=== PATIENT | female | born 1945 | race Caucasian/White ===

== ENCOUNTER 2020-08-16 14:56 | Emergency (ER) | payer MEDICARE, SELFPAY ==
--- NOTE | ~2020-08-16 | XR_ITS ---
EXAMINATION: XR ankle RT min 3V DATE: 08/16/2020 15:34 INDICATION: Lateral right ankle pain and swelling. TECHNIQUE: 4 views of right ankle were obtained. COMPARISON: Right ankle radiographs 04/01/2016 FINDINGS: There is a nondisplaced transverse fracture of distal fibula with medial aspect of the frac ture line 7 mm distal to the level of the tibial plafond. There is mild midfoot osteoarthritis. There are enthesophytes at the posterior and plantar aspects of calcaneal tuberosity. There is ankle soft tissue swelling, lateral worse than medial. IMPRESSION: 1. Transverse fracture of lateral malleolus. Reviewed, dictated and finalized at location A.
[2020-08-16 15:12] VITALS: BP 136/65; PULSE 81; RESP 20; TEMP 36.9; O2SAT 98
--- NOTE | 2020-08-16 15:24 | PC.NURSE ---
Pt to ED with complaints of right ankle pain and swelling. Pt twisted her ankle and fell to the ground. Denies head injury or LOC.
--- NOTE | 2020-08-16 15:28 | PC.NURSE ---
To xray via wheelchair.
--- NOTE | 2020-08-16 17:02 | PC.NURSE ---
Short leg posterior OCL applied by tech. Crutches provided. Crutch teaching provided to pt.
[2020-08-16 17:50] VITALS: BP 159/79; PULSE 78; RESP 18; O2SAT 96
--- NOTE | 2020-08-16 22:55 | ED.FALL ---
HPI - Fall General Chief Complaint: Fall <Hi Pelaez PA-C - Last Filed: 08/16/20 23:05> Stated Complaint: R ankle pain after fall <THANH Mendes Last Filed: 08/16/20 23:05> Time Seen by Provider: 08/16/20 15:23 <Hi Pelaez PA-C - Last Filed: 08/16/20 23:05> Source: patient <THANH Mendes Last Filed: 08/16/20 23:05> Mode of arrival: ambulatory <THANH Mendes Last Filed: 08/16/20 23:05> Limitations: no limitations <THANH Mendes Last Filed: 08/16/20 23:05> History of Present Illness HPI Narrative: Patient presents for evaluation of pain and swelling to the lateral aspect of her right ankle after tripping in a [employer] and inverting her right ankle. Patient reports that she has fractured the ankle 2 times in the past but normally wears a boot and follows up with her primary care. Patient states she has never had to have any surgical intervention on the ankle. Patient reports sensation and range of motion is intact but any range of motion of the ankle is uncomfortable. She denies any head impact, loss of consciousness or any other areas of pain. <THANH Mendes Last Filed: 08/16/20 23:05> Related Data Home Medications: Home Medications Medication Instructions Recorded Confirmed aspirin 325 mg tablet 325 mg PO DAILY 04/12/20 <Hi Pelaez PA-C - Last Filed: 08/16/20 23:05> Allergies/Adverse Reactions: Allergies Allergy/AdvReac Type Severity Reaction Status Date / Time No Known Allergies Allergy Mild NONE Verified 08/16/20 15:22 <Hi Pelaez PA-C - Last Filed: 08/16/20 23:05> Review of Systems Review of Systems: Narrative: CONSTITUTIONAL: Denies fever, chills, or sweats. EYES: Denies visual changes, redness, or discharge. ENT: Denies rhinorrhea, congestion, sore throat, or otalgia. CARDIOVASCULAR: Denies chest pain, palpitations, or edema. RESPIRATORY: Denies cough or dyspnea. GASTROINTESTINAL: Denies abdominal pain, nausea, vomiting, or diarrhea. GENITOURINARY: Denies dysuria or hematuria. SKIN: Denies rash or itching. MUSCULOSKELETAL: Reports right ankle pain denies back pain, myalgia NEUROLOGIC: Denies headache, numbness, dizziness, or weakness. PSYCHIATRIC: Denies anxiety or depression. <Hi Pelaez PA-C - Last Filed: 08/16/20 23:05> [facility] Past Medical History Medical History: Medical History (Updated 08/17/20 @ 00:01 by Background Daemon) Essential hypertension Mixed hyperlipidemia Peripheral vascular disease Tobacco abuse Vitamin D deficiency <Hi Pelaez PA-C - Last Filed: 08/16/20 23:05> Social History Social History: Social History Smoking status: Light tobacco smoker Second hand tobacco smoke exposure: No Alcohol intake: never <Hi Pelaez PA-C - Last Filed: 08/16/20 23:05> Exam Narrative: Exam Narrative: GENERAL: Well-appearing, well-nourished. HEAD: Normocephalic, atraumatic. No lacerations, hematomas or outward signs of injury. EYES: PERRLA and EOMI. ENT: Nares clear, no rhinorrhea or epistaxis. Mucous membranes moist. Oropharynx without tonsillar hypertrophy exudate or other lesions. Bilateral TMs pearly hennessy nonbulging. No hemotympanum NECK: Supple. No adenopathy or masses. No vertebral tenderness or loss of ROM. CHEST: Clear to auscultation. No respiratory distress. No wheezes rales or rhonchi HEART: Regular rate and rhythm. Normal peripheral pulses. EXTREMITIES: Swelling to the lateral malleolus of right ankle. No other areas distal or proximal with tenderness. Pain with plantar, dorsiflexion, Inversion. SKIN: Warm, dry, no rash. NEURO: No focal deficits. Alert and oriented x3. PSYCH: Normal mood and affect. <Hi Pelaez PA-C - Last Filed: 08/16/20 23:05> Course Vital Signs Vital signs: Vital Signs Temperature 36.9 C 08/16/20 15:12 Pulse Rate
== END 2020-08-16 17:52 | disposition home or self-care (01) ==
PROVIDERS: Emergency Provider Emergency Medicine; PCP Family Medicine
DX: S82.61XA Displaced fracture of lateral malleolus of right fibula, initial encounter for closed fracture (principal); I10 Essential (primary) hypertension; E78.2 Mixed hyperlipidemia; I73.9 Peripheral vascular disease, unspecified; E55.9 Vitamin D deficiency, unspecified; F17.200 Nicotine dependence, unspecified, uncomplicated; W18.40XA Slipping, tripping and stumbling without falling, unspecified, initial encounter; X50.9XXA Other and unspecified overexertion or strenuous movements or postures, initial encounter
CPT/HCPCS: 29515; 73610; 99284

== ENCOUNTER 2020-10-01 08:16 | Outpatient (CLI) | payer MEDICARE, SELFPAY ==
--- NOTE | ~2020-10-01 | XR_ITS ---
EXAMINATION: XR ankle RT min 3V DATE: 10/01/2020 08:41 INDICATION: Right ankle injury TECHNIQUE: Anteroposterior, oblique, mortise, and lateral views of the right ankle were obtained. COMPARISON: 08/16/2020 FINDINGS: There is subtle residual linear lucency along the previous noted transverse fracture of the lateral m alleolus which remains nondisplaced. There appears to be some increased sclerosis along the medial si de of the fracture plane consistent with change of interval healing. Persistent linear lucency projec ting across the lateral aspect of either the anterior process of the calcaneus or the cuboid on the A P projection suspicious for nondisplaced avulsion fracture. No significant overlying soft tissue swel ling to at the lateral ankle or midfoot to suggest recurrent injury. Alignment is essentially anatomi c with a congruent ankle mortise. Mild osteoarthritis at a few of the joints in the mid foot. [place] s and plantar calcaneal enthesophytes with small amount of enthesopathic ossification in the proximal plantar aponeurosis. Increased density anterior to the ankle joint line suggesting a small joint eff usion. IMPRESSION: 1. Healing nondisplaced transverse fracture at the lateral malleolus with still discernible lucency a t the fracture plane. 2. Suggestion of an additional unchanged nondisplaced likely avulsion fracture involving the lateral margin of the cuboid or anterior process of the calcaneus. 3. Small right ankle joint effusion. Reviewed, dictated and finalized at location A. ING IN MACHINE TENDER IMPRESSION: 1. Healing nondisplaced transverse fracture at the lateral malleolus with still discernible lucency at the fracture plane. 2. Suggestion of an additional unchanged nondisplaced likely avulsion fracture involving the lateral margin of the cuboid or anterior process of the calcaneus . 3. Small right ankle joint effusion.
== END 2020-10-01 08:17 | disposition home or self-care (01) ==
LOC: CHSIMG 08:18
PROVIDERS: PCP Family Medicine; Visit Provider Orthopaedic Surgery
DX: S99.911A Unspecified injury of right ankle, initial encounter (principal)
CPT/HCPCS: 73610

== ENCOUNTER 2020-10-29 08:16 | Outpatient (CLI) | payer MEDICARE, SELFPAY ==
[2020-10-29 08:30] LABS: Hematocrit 46.8 % (35.0-42.0); Hemoglobin 14.8 g/dL (11.7-13.8); Mean Corpuscular HGB Conc 31.6 g/dL (32.0-36.0); Mean Corpuscular Hemoglobin 29.6 pg (27.0-31.0); Mean Corpuscular Volume 93.6 fL (78.0-102.0); Platelet Count Result 293 K/mm3 (150-420); Red Cell Distribution Width 13.5 % (11.6-14.4); White Blood Count 6.2 K/mm3 (4.8-10.8)
[2020-10-29 09:32] LABS: Erythrocyte Sedimentation Rate 5 mm/hr (0-20)
[2020-10-29 09:40] LABS: Alanine Aminotransferase 12 U/L (14-59); Alkaline Phosphatase 65 U/L (46-116); Anion Gap 10 mmol/L (8-16); Aspartate Amino Transferase 14 U/L (15-37); Bilirubin,Total 0.6 mg/dL (0.00-1.00); Blood Urea Nitrogen 8 mg/dL (7-18); Calcium 9.4 mg/dL (8.5-10.1); Carbon Dioxide 29 mmol/L (21-32); Chloride 100 mmol/L (98-108); Estimated Glomerular Filt Rate 46; Glucose 92 mg/dL (70-99); Iron 76 ug/dL (50-170); Osmolality Calculated 286 mOsm/kg (285-295); Percent Iron Saturation 28 % (12-57); Potassium 3.8 mmol/L (3.5-5.1); Sodium 139 mmol/L (136-145); Total Protein 6.9 g/dL (6.4-8.2)
[2020-10-29 09:49] LABS: Thyroid Stimulating Hormone Reflex 1.11 u/IU/mL (0.36-3.74)
[2020-10-29 13:52] LABS: Appearance Urine Clear (Clear); Bilirubin Urine Negative (Negative); Color Urine Yellow (Yellow); Glucose Urine UA Negative (Negative); Ketones Urine Negative (Negative); Leukocyte Esterase Ur Negative LEU/UL (Negative); Nitrate Urine Negative (Negative); Protein Urine Negative (Negative); Specific Grav Ur 1.015 (1.010-1.020); Urobilinogen Urine 0.2 mg/dL (0.2-1.0); pH Urine 5.5 (5.0-8.0)
[2020-10-29 13:57] LABS: Add Urine Microscopic? YES; Bacteria Urine 1+ /hpf; Blood Urine Trace-Intact (Negative); RBC Urine 0-2 /hpf (0-2); Squamous Epithelial Cell Urine Moderate /hpf (Few); WBC Urine 0-3 /hpf (0-3)
[2020-11-02 15:11] LABS: Gliadin AB, IgG 4 Units (<20); Reticulin IgA Negative (Negative); TTG IGA AB 1 U/mL (<4)
== END 2020-10-29 08:17 | disposition home or self-care (01) ==
LOC: CHSLAB 08:19
PROVIDERS: PCP Family Medicine; Visit Provider Family Medicine
DX: R19.7 Diarrhea, unspecified (principal); R63.4 Abnormal weight loss; R53.83 Other fatigue; M79.641 Pain in right hand
CPT/HCPCS: 36415; 80053; 81001; 83516; 83540; 83550; 84443; 85027; 85652; 86255

== ENCOUNTER 2021-03-05 19:58 | Emergency (ER) | payer MEDICARE, SELFPAY ==
--- NOTE | ~2021-03-05 | CT_ITS ---
EXAMINATION: CT brain wo con DATE: 03/05/2021 20:52 INDICATION: Diffuse headache, dizziness, lightheadedness. Nausea. TECHNIQUE: Computed tomography (CT) of the head was performed without intravenous contrast. The mA wa s adjusted according to patient size. Iterative reconstruction technique was employed. Exam dose: 52 9.67 mGy-cm total exam DLP. COMPARISON: None FINDINGS: Bilateral carotid siphon and supraclinoid internal carotid artery calcifications. There is nonspecific prominent patchy diminished attenuation of the subcortical and periventricular c erebral white matter, likely due to chronic small vessel ischemic changes. No intracranial mass lesion or hemorrhage or cerebrovascular accident is evident. No midline shift or mass effect effect. No subdural or epidural hematoma. Included paranasal sinuses and mastoid air cells are normally developed and aerated. No fracture or bone destruction of the cranial vault. IMPRESSION: Cerebral atherosclerosis and chronic small vessel ischemic changes of the cerebral white matter Reviewed, dictated and finalized at Location A. Reviewed, dictated and finalized at location A.
[2021-03-05 20:10] VITALS: BP 170/111; PULSE 98; RESP 20; TEMP 36.5; O2SAT 96
[2021-03-05 20:28] VITALS: BP 175/91; PULSE 81; RESP 18; O2SAT 95
[2021-03-05] MEDS: ONDANSETRON HCL ODT 4 MG TABLET PO (20:43)
--- NOTE | 2021-03-05 20:45 | ED.HA ---
HPI - Headache General Source: patient and family Mode of arrival: ambulatory Limitations: no limitations History of Present Illness HPI Narrative: the patient comes into the emergency room tonight after being lightheaded most of the day today. She states she woke up with a headache and felt lightheaded. This is continued most of the day. She also has had a rather bad headache. She has not had any focal weakness. She has not had any shortness of breath or had any palpitations. She continues to smoke about a pack a day. She has had some mild nausea with this as well. Measures taken at home have not made her feel better. she is most disturbed by the lightheadedness which is ongoing off and on since this morning. She denies any vertigo. MD elicited complaint: headache Onset description: suddenly (after waking this am) Related Data Home Medications Medication Instructions Recorded Confirmed omega-3 fatty acids 1,000 mg 1,000 mg PO DAILY 08/20/20 03/05/21 capsule aspirin [EC Aspirin] 325 mg PO DAILY 03/05/21 03/05/21 cyanocobalamin (vitamin B-12) See Rx Instructions .ROUTE .COMPLEX 03/05/21 03/05/21 Allergies Allergy/AdvReac Type Severity Reaction Status Date / Time No Known Allergies Allergy Mild NONE Verified 03/04/21 08:55 Review of Systems Constitutional: Constitutional: Reports no additional constitutional complaints Eyes: Eyes: Reports no additional eye complaints Comments: no vertigo ENT: Reports system reviewed and no additional complaints, except as documented Cardiovascular: Cardiovascular: Reports as per HPI and Reports no additional cardiovascular complaints Respiratory: Respiratory: Reports no additional respiratory complaints Gastrointestinal: Gastrointestinal: Reports no additional gastrointestinal complaints and Reports nausea Genitourinary: Genitourinary: Reports no additional female genitourinary complaints Musculoskeletal: Musculoskeletal: Reports no additional musculoskeletal complaints Integumentary/Breasts: Skin/Breast: Reports system reviewed and no additional complaints, except as docu Neurologic: Reports system reviewed and no additional complaints, except as documented Psychiatric: Psychiatric: Reports no additional psychiatric complaints Endocrine: Endocrine: Reports no additional endocrine complaints Hematologic/Lymphatic: Hematologic/Lymphatic: Reports no additional hematologic/lymphatic complaints Allergic/Immunologic: Allergic/Immunologic: Reports no additional allergic/immunologic complaints PMFSH Past Medical History Medical History Dizziness Essential hypertension Mixed hyperlipidemia Peripheral vascular disease Tobacco abuse Urinary frequency Vision abnormalities Vitamin D deficiency Surgical History Surgical History History of arthroscopy of left knee Family History Family History Sibling Depression Patient's sister is Father Family history of emphysema Mother Family history of coronary artery disease Other Hypertension Social History Social History Smoking packs per day: 0.5 Smoking cigarettes per day: 10.0 Years smoked: 60 Smoking pack-years: 30.00 Smoking status: Current every day smoker Tobacco type: cigarettes Second hand tobacco smoke exposure: No Alcohol intake: never Substance use: never Substance use type: does not use Gender identity (if verbalized by the patient): Female Exam Const: General: healthy appearing and no acute distress Orientation/consciousness: patient oriented x3 HENMT: Head: normal to inspection Ears: external ears normal and TM's normal bilaterally General nose exam: Normal external nose present and Normal nares present Face and sinus: normal facial exam Mouth: Yes
[2021-03-05 20:58] LABS: Basophils Absolute Auto 0.09 K/mm3 (0.00-0.10); Basophils Percent Auto 1.1 % (0.0-1.0); Eosinophils Absolute Auto 0.19 K/mm3 (0.02-0.50); Eosinophils Percent Auto 2.3 % (1.0-6.0); Hematocrit 45.1 % (35.0-42.0); Hemoglobin 14.7 g/dL (11.7-13.8); Immature Granulocyte Absolute 0.05 K/mm3 (0.00-0.00); Immature Granulocyte Percent A 0.6 % (0.0-0.0); Lymphocytes Absolute Auto 1.75 K/mm3 (1.10-4.50); Lymphocytes Percent Auto 21.1 % (18.0-42.0); Mean Corpuscular HGB Conc 32.6 g/dL (32.0-36.0); Mean Corpuscular Hemoglobin 30.3 pg (27.0-31.0); Mean Platelet Volume 10.2 fl (9.2-11.8); Monocytes Absolute Auto 0.82 K/mm3 (0.10-0.90); Monocytes Percent Auto 9.9 % (2.0-11.0); Neutrophils Absolute Auto 5.4 K/mm3 (1.7-7.2); Platelet Count Result 273 K/mm3 (150-420); Red Blood Count 4.85 M/mm3 (4.20-5.40); Red Cell Distribution Width 13.8 % (11.6-14.4); White Blood Count 8.3 K/mm3 (4.8-10.8)
[2021-03-05 21:12] LABS: Alanine Aminotransferase 13 U/L (14-59); Albumin Level 3.6 g/dL (3.4-5.0); Alkaline Phosphatase 69 U/L (46-116); Anion Gap 11 mmol/L (8-16); Aspartate Amino Transferase < 10 U/L (15-37); Bilirubin,Total 0.5 mg/dL (0.00-1.00); Blood Urea Nitrogen 12 mg/dL (7-18); Calcium 9.2 mg/dL (8.5-10.1); Carbon Dioxide 26 mmol/L (21-32); Chloride 101 mmol/L (98-108); Estimated CRCL calculation 30 ml/min; Estimated Glomerular Filt Rate 49; Glucose 102 mg/dL (70-99); Osmolality Calculated 285 mOsm/kg (285-295); Partial Thromboplastin Time 27.3 SEC (23.90-30.70); Potassium 3.8 mmol/L (3.5-5.1); Prothrombin Time 10.6 Seconds (9.50-12.10); Sodium 138 mmol/L (136-145); Total Protein 6.6 g/dL (6.4-8.2)
[2021-03-05 21:24] VITALS: BP 151/97; PULSE 89; RESP 20; O2SAT 96
--- NOTE | 2021-03-05 21:30 | PC.NURSE ---
ERP spoke c pt about test results and CT. ERP discussed staying for admission, pt. declined and didn't want admission, signed AMA.
[2021-03-05 21:57] LABS: Erythrocyte Sedimentation Rate 8 mm/hr (0-20)
== END 2021-03-05 21:35 | disposition left against medical advice (07) ==
PROVIDERS: Emergency Provider Emergency Medicine; PCP Family Medicine
DX: I63.9 Cerebral infarction, unspecified (principal); I10 Essential (primary) hypertension; E78.2 Mixed hyperlipidemia
CPT/HCPCS: 36415; 70450; 80053; 85025; 85610; 85652; 85730; 99282; 99284; A9270

== ENCOUNTER 2021-03-07 12:32 | Outpatient (CLI) | payer MEDICARE, SELFPAY ==
--- NOTE | ~2021-03-07 | US_ITS ---
EXAMINATION: US carotid duplex BI DATE: 03/07/2021 12:56 INDICATION: Transient ischemic attack. TECHNIQUE: Grayscale, color Doppler, and pulsed Doppler images of the cervical carotid arteries were obtained. The degree of vessel stenosis is placed in one of the following categories: normal, <50%, 5 0-69%, >=70% but less than near-occlusion, near-occlusion, or total occlusion. Note that percent sten osis relative to normal distal artery lumen diameter is indirectly measured from velocity measurement s as described by Jamari, et al. Radiology 2003; 229:340-346. COMPARISON: None. FINDINGS: RIGHT: The right common carotid artery (CCA) peak systolic velocity (PSV) is 65 cm/s. The right internal car otid artery (ICA) PSV is 65 cm/s. The right ICA end-diastolic velocity (EDV) is 12 cm/s. The right IC A/CCA PSV ratio is 1.0. Grayscale and color Doppler images yield an estimate of <50% diameter reducti on from plaque in the ICA. There is antegrade flow in the right vertebral artery. LEFT: The left CCA PSV is 81 cm/s. The left ICA PSV is 75 cm/s. The left ICA EDV is 25 cm/s. The left ICA/C CA PSV ratio is 0.9. Grayscale and color Doppler images yield an estimate of <50% diameter reduction from plaque in the ICA. There is antegrade flow in the left vertebral artery. IMPRESSION: 1. <50% stenosis in the right internal carotid artery. 2. <50% stenosis in the left internal carotid artery. Reviewed, dictated and finalized at location A.
== END 2021-03-07 12:33 | disposition home or self-care (01) ==
LOC: CHSIMG 12:33
PROVIDERS: PCP Family Medicine; Visit Provider Family Medicine
DX: G45.9 Transient cerebral ischemic attack, unspecified (principal)
CPT/HCPCS: 93880

== ENCOUNTER 2021-03-08 09:53 | Outpatient (CLI) | payer MEDICARE, SELFPAY ==
--- NOTE | ~2021-03-08 | MR_ITS ---
EXAMINATION: MR brain/brain stem wo/w con DATE: 03/08/2021 10:59 INDICATION: Transient cerebral ischemic attack, unspecified. TECHNIQUE: Magnetic resonance imaging (MRI) of the brain and brainstem was performed without and with 10 mL MultiHance intravenous contrast. Sequences included sagittal and axial T1-weighted FSE, axial diffusion-weighted FS EPI, axial T2*-weighted GRE, axial T2-weighted FLAIR Propeller, and axial T2-we ighted Propeller. Postcontrast sequences included axial and coronal T1-weighted FSE. Apparent diffusi on coefficient (ADC) maps were created. COMPARISON: Head CT 03/05/2021 FINDINGS: There are scattered areas of nonspecific increased T2-weighted signal intensity in the cere bral and cerebellar white matter and moses. There are scattered foci of old blood products in the brai n including in the deep hennessy nuclei. There is no acute ischemic infarct or abnormal mass lesion. The ventricles are normal in size. The paranasal sinuses are clear. There are likely changes of ocular le ns replacement surgeries. The mastoid air cells are normal. IMPRESSION: 1. Moderate cerebral and cerebellar white matter disease and pontine disease and scattered foci of ol d blood products in the brain, consistent with chronic hypertensive encephalopathy. Reviewed, dictated and finalized at location B. IMPRESSION: 1. Moderate cerebral and cerebellar white matter disease and pontine disease an d scattered foci of old blood products in the brain, consistent with chronic hy pertensive encephalopathy.
== END 2021-03-08 09:54 | disposition home or self-care (01) ==
LOC: CHSIMG 09:55
PROVIDERS: PCP Family Medicine; Visit Provider Family Medicine
DX: G45.9 Transient cerebral ischemic attack, unspecified (principal)
CPT/HCPCS: 70553; A9577

== ENCOUNTER 2021-03-21 12:12 | Outpatient (CLI) | payer MEDICARE, SELFPAY ==
--- NOTE | 2021-03-21 12:55 | ECHO_ITS ---
Patient Info Name: Rachael Thopmson Age: 75 years : 1945 Gender: Female Ht: 62 in Wt: 110 lbs BSA: 1.48 m2 HR: 76 bpm BP: 183 / 103 mmHg Technical Quality: Good Exam Date: 03/21/2021 1:03 PM Exam Location: [facility] Patient Status: Outpatient Admit Date: 03/21/2021 Staff Ordering Physician: Natalie Flores MD [employer] W[employer] System Operator: Tyrell Xiong RDCS, RT Attending Provider: Natalie Flores MD Referring Physician: Mark BANDA; Exam Type: CA echo doppler color flow Study Info Indications G45.9 - Transient cerebral ischemic attack, unspecified Complete two-dimensional, color flow and Doppler transthoracic echocardiogram is performed. Strain analysis performed. Summary 1. Complete two-dimensional, color flow and Doppler transthoracic echocardiogram is performed. 2. Left ventricular systolic function is moderately reduced, estimated at 35-40%. 3. Left ventricular chamber dimension is mildly enlarged. 4. There is moderately increased left ventricular wall thickness. 5. The left ventricular diastolic function is grade I diastolic dysfunction. 6. E/e' 16 is elevated. 7. Global longitudinal strain is abnormal at -9.3%. 8. Left atrial chamber dimension is mildly enlarged. 9. There is mild aortic valve sclerosis. 10. There is mild mitral valve regurgitation. 11. No pulmonary hypertension, estimated pulmonary arterial systolic pressure is 30 mmHg. Left Ventricle E/e' 16 is elevated. Global longitudinal strain is abnormal at -9.3%. Left ventricular chamber dimension is mildly enlarged. Left ventricular systolic function is moderately reduced, estimated at 35-40%. There is moderately increased left ventricular wall thickness. The left ventricular diastolic function is grade I diastolic dysfunction. Right Ventricle Right ventricular chamber dimension is normal. Right ventricular systolic function is normal. Left Atria Left atrial chamber dimension is mildly enlarged. Right Atria Right atrial chamber dimension is normal. Aortic Valve The aortic valve is trileaflet. There is mild aortic valve sclerosis. There is no aortic valve stenosis. There is no aortic valve regurgitation. Pulmonic Valve There is no pulmonic regurgitation. Mitral Valve There is no mitral valve stenosis. There is mild mitral valve regurgitation. Tricuspid Valve There is no tricuspid valve regurgitation. No pulmonary hypertension, estimated pulmonary arterial systolic pressure is 30 mmHg. Pericardium/Pleural There is no pericardial effusion. Inferior Vena Cava Normal inferior vena cava with >50% collapse upon inspiration consistent with normal right atrial pressure, 5 mmHg. Aorta The aortic root size at the sinus of Valsalva is normal. Left Ventricular Outflow Tract Name Value Normal LVOT 2D LVOT Diameter 1.9 cm LVOT Doppler LVOT Peak Gradient 3 mmHg LVOT Mean Gradient 2 mmHg LVOT VTI 21 cm LVOT VTI/AV VTI Ratio 0.7 LVOT Stroke Volume 60 ml
== END 2021-03-21 12:13 | disposition home or self-care (01) ==
PROVIDERS: PCP Family Medicine; Visit Provider Family Medicine
DX: G45.9 Transient cerebral ischemic attack, unspecified (principal); I65.23 Occlusion and stenosis of bilateral carotid arteries; I35.8 Other nonrheumatic aortic valve disorders; I34.0 Nonrheumatic mitral (valve) insufficiency
CPT/HCPCS: 93306

== ENCOUNTER 2021-03-26 13:50 | Emergency (ER) | payer MEDICARE, SELFPAY ==
--- NOTE | ~2021-03-26 | XR_ITS ---
EXAMINATION: XR ankle LT min 3V DATE: 03/26/2021 14:26 INDICATION: Left ankle pain post twisting injury TECHNIQUE: Anteroposterior, oblique, mortise, and lateral views of the left ankle were obtained. COMPARISON: None. FINDINGS: Diffuse osteopenia. Alignment is normal. No acute fracture. Small osseous excrescence arising from t he tip of the lateral malleolus likely either old healed avulsion fracture or heterotopic ossificatio n related to chronic ligament injury. Mild polyarticular osteoarthritis at the left ankle and multipl e joints in the mid and hindfoot. There is no ankle joint effusion with increased density anterior to the tibiotalar joint line. Small plantar calcaneal spur with small amount of enthesopathic ossificat ion along the proximal plantar aponeurosis. Soft tissue swelling about the ankle most prominent over the lateral malleolus. IMPRESSION: 1. Left ankle joint effusion. No acute osseous abnormality. 2. Diffuse osteopenia and mild polyarticular osteoarthritis at the left ankle, mid and hindfoot. 3. Chronic enthesopathy of the plantar aponeurosis with small enthesophyte and small amount of enthes opathic ossification at its calcaneal insertion. Reviewed, dictated and finalized at location A. IMPRESSION: 1. Left ankle joint effusion. No acute osseous abnormality. 2. Diffuse osteopenia and mild polyarticular osteoarthritis at the left ankle, mid and hindfoot. 3. Chronic enthesopathy of the plantar aponeurosis with small enthesophyte and small amount of enthesopathic ossification at its calcaneal insertion.
[2021-03-26 14:21] VITALS: BP 157/90; PULSE 102; RESP 20; TEMP 36.8; O2SAT 95
--- NOTE | 2021-03-26 14:25 | ED.GENADULT ---
HPI - General Adult General Chief complaint: Extremity Injury, Lower Stated complaint: ANKLE IS SWOLLEN Source: patient Mode of arrival: ambulatory Limitations: no limitations History of Present Illness HPI narrative: Rachael is a PAD, tobacco abuse, HLD and HTN presented to the ER with pain in her left ankle. She took a step up yesterday and heard a crack with immediate pain and a little bit of swelling. She did not fall and has no other injuries. Related Data Home Medications Medication Instructions Recorded Confirmed omega-3 fatty acids 1,000 mg 1,000 mg PO HS 08/20/20 03/26/21 capsule aspirin [EC Aspirin] 325 mg PO HS 03/05/21 03/26/21 cyanocobalamin (vitamin B-12) See Rx Instructions .ROUTE .COMPLEX 03/05/21 03/26/21 Allergies Allergy/AdvReac Type Severity Reaction Status Date / Time No Known Allergies Allergy Mild NONE Verified 03/26/21 14:15 Review of Systems Constitutional: Constitutional: Reports as per HPI Eyes: Eyes: Reports as per HPI ENT: Reports system reviewed and no additional complaints, except as documented Cardiovascular: Cardiovascular: Reports as per HPI Respiratory: Respiratory: Reports as per HPI Gastrointestinal: Gastrointestinal: Reports as per HPI Genitourinary: Genitourinary: Reports no additional female genitourinary complaints Musculoskeletal: Musculoskeletal: Reports no additional musculoskeletal complaints Integumentary/Breasts: Skin/Breast: Reports system reviewed and no additional complaints, except as docu Neurologic: Reports system reviewed and no additional complaints, except as documented Psychiatric: Psychiatric: Reports no additional psychiatric complaints Endocrine: Endocrine: Reports no additional endocrine complaints Hematologic/Lymphatic: Hematologic/Lymphatic: Reports no additional hematologic/lymphatic complaints Allergic/Immunologic: Allergic/Immunologic: Reports no additional allergic/immunologic complaints [facility] Past Medical History Medical History Dizziness Essential hypertension Mixed hyperlipidemia Peripheral vascular disease Tobacco abuse Urinary frequency Vision abnormalities Vitamin D deficiency Surgical History Surgical History History of arthroscopy of left knee Family History Family History Sibling Depression Patient's sister is Father Family history of emphysema Mother Family history of coronary artery disease Other Hypertension Social History Social History Smoking packs per day: 0.5 Smoking cigarettes per day: 10.0 Years smoked: 60 Smoking pack-years: 30.00 Tobacco type: cigarettes Second hand tobacco smoke exposure: No Alcohol intake: never Substance use: never Substance use type: does not use Gender identity (if verbalized by the patient): Female Exam Const: General: no acute distress and alert Orientation/consciousness: patient oriented x3 Limitations: No altered mental status HENMT: Head: normal to inspection Mouth: Yes Normal oral and palatal mucosa present Eyes: Conjunctivae: conjunctivae normal Pupils: Equal, round and reactive pupils present Neck: Neck: normal visual inspection Chest: Chest palpation & inspection: normal inspection of the chest Resp: Effort & Inspection: normal respiratory effort, not labored and not tachypneic Cardio: Rate: regular rate GI: Inspection: non-distended GI Palp: Yes Soft to palpation and No Tenderness to palpation present (GI) Back/Spine/Pelvis: Back: no CVA tenderness Skin: General skin exam: normal color Rashes: no rashes Neuro: General: patient oriented x3 and moves all extremities Extrem: General: normal to inspection Psych: Mental Status: mental status grossly normal Course Course
[2021-03-26 15:15] VITALS: BP 152/100; PULSE 90; RESP 20; TEMP 36.6; O2SAT 97
== END 2021-03-26 15:20 | disposition home or self-care (01) ==
PROVIDERS: Emergency Provider Family Medicine; PCP Family Medicine
DX: S93.402A Sprain of unspecified ligament of left ankle, initial encounter (principal); I10 Essential (primary) hypertension; E78.2 Mixed hyperlipidemia; F17.200 Nicotine dependence, unspecified, uncomplicated
CPT/HCPCS: 73610; 99282; 99283

== ENCOUNTER 2021-08-05 09:27 | Outpatient (CLI) | payer MEDICARE, SELFPAY ==
--- NOTE | ~2021-08-05 | XR_ITS ---
XR knee RT min 4V DATE: 08/05/2021 10:14 INDICATION: Lateral right knee pain for one month TECHNIQUE: 4 projections, 5 views COMPARISON: 05/29/2013 right knee FINDINGS: There is chondrocalcinosis of the medial and lateral compartments. There is mild periarticular spurring of the patella. Diffuse osteopenia. No fracture or dislocation, periosteal reaction or bone destruction. IMPRESSION: Chondrocalcinosis Mild patellofemoral osteoarthritis Osteopenia Reviewed, dictated and finalized at location A.
== END 2021-08-05 09:28 | disposition home or self-care (01) ==
LOC: CHSIMG 09:31
PROVIDERS: PCP Family Medicine; Visit Provider Orthopaedic Surgery
DX: M25.561 Pain in right knee (principal)
CPT/HCPCS: 73564

== ENCOUNTER 2021-08-09 09:24 | Outpatient (CLI) | payer MEDICARE, SELFPAY ==
--- NOTE | ~2021-08-09 | MR_ITS ---
EXAMINATION: MR knee RT wo con DATE: 08/09/2021 10:36 INDICATION: Right knee pain. TECHNIQUE: Magnetic resonance imaging (MRI) of the right knee was performed without intravenous contr ast. Sequences included axial PD-weighted FS FSE, coronal PD-weighted FSE and PD-weighted FS FSE, sag ittal PD-weighted FSE, and sagittal T2-weighted FS FSE. COMPARISON: Right knee radiographs 08/05/2021 FINDINGS: Medial compartment: Medial meniscus is normal, but motion artifact decreases sensitivity. There is partial-thickness cart ilage loss of femoral condyle, deep at the central articular surface. There is shallow partial-thickn ess cartilage loss of tibial condyle. Osteophytes are noted. Lateral compartment: There is a radial tear of body and anterior horn of lateral meniscus. There is a subchondral insuffic iency fracture of tibial condyle with low signal fracture line and extensive edema-like marrow signal intensity. There is partial-thickness cartilage loss of tibial condyle and femoral condyle, deep at the central and lateral articular surface of femoral condyle. Osteophytes are noted. Patellofemoral compartment: There is full-thickness cartilage loss of patellar medial facet, median ridge, and lateral facet with mild subchondral edema-like marrow signal intensity. There is extensive partial thickness cartilage loss of trochlea. Tiny osteophytes are noted. Sensitivity is decreased by motion artifact. Ligaments and tendons: The anterior cruciate ligament is normal. There is a partial tear of posterior cruciate ligament idris acterized by thickening and increased signal intensity. There are changes of prior sprains of medial collateral ligament and fibular collateral ligament characterized by increased signal intensity and t hickening proximally. There is mild patellar tendinopathy. Fluid: There is a small knee joint effusion. There is a moderate-sized ruptured Tyler's cyst. IMPRESSION: 1. Subchondral insufficiency fracture of lateral tibial condyle. 2. Severe chondrosis of patellofemoral compartment and moderate chondrosis of medial and patellofemor al compartments. Sensitivity and specificity are decreased by motion artifact. 3. Tear of lateral meniscus. 4. Small knee joint effusion. 5. Moderate-sized ruptured Tyler's cyst. 6. Partial tear of posterior cruciate ligament. Reviewed, dictated and finalized at location A. IMPRESSION: 1. Subchondral insufficiency fracture of lateral tibial condyle. 2. Severe chondrosis of patellofemoral compartment and moderate chondrosis of m edial and patellofemoral compartments. Sensitivity and specificity are decrease d by motion artifact. 3. Tear of lateral meniscus. 4. Small knee joint effusion. 5. Moderate-sized ruptured Tyler's cyst. 6. Partial tear of posterior cruciate ligament.
== END 2021-08-09 09:25 | disposition home or self-care (01) ==
LOC: CHSIMG 09:26
PROVIDERS: PCP Family Medicine; Visit Provider Orthopaedic Surgery
DX: M25.561 Pain in right knee (principal)
CPT/HCPCS: 73721

== ENCOUNTER 2021-08-26 08:48 | Outpatient (RCR) | payer MEDICARE, SELFPAY ==
--- NOTE | 2021-08-26 09:55 | PTOPEVAL ---
Thank you for referring Rachael Thompson to [facility] [place] The patient is scheduled to be seen for therapy? ____x/week for ___ weeks. Please review, sign, date and return this plan of care RONALD. I agree with and certify that the following plan of care is medically necessary. Referring Physician Date Admitting Provider: Attending Provider: Bobby Curiel MD Referring Provider: *PT Outpatient Evaluation Start: 08/26/21 08:52 Freq: Status: Active Protocol: Document 08/26/21 08:52 ACR (Rec: 08/26/21 09:54 ACR [id number]) Therapy Assessment Status Assessment Status Assessment Status Evaluation Outpatient Past Medical History Cardiovascular History Hx Hypertension Yes Reproductive History Hx Post Menopausal Yes Evaluation Information Problem Diagnosis R lateral tibial fracture Onset 08/19/21 Subjective Information Patient states that she is Query Text:As Reported By Patient/ unsure how she injured Family yourself, but the pain got so bad that she went to the MD and got an X-ray and MRI which showed a stress fracture of the tibia, a tear of the lateral meniscus, and a partial tear of the PCL. She states the pain has been gradual and there is no time that she recalls it started to bother her, but she did fall outside over the summer. The patient states she did not walk with the cane before the injury. Patient states that walking, balance, steps, and standing to prep a meal are all difficult. Patient states that she will occasionally take a tylenol to ease the pain. Patient states that she has a flight of steps to get to the basement to the laundry . Patient states her goal for therapy is to walk better. Prior Level of Function Activity Level (Last 3 Months) Occupation retired Hand Dominance Right Activity of Daily Living Ability Independent Indoor/Home Mobility Independent Community Mobility Independent Stairs Ability Independent Functional Cognition (Planning, Shopping Independent , Taking Medications)
--- NOTE | 2021-09-11 10:51 | PTOPEVAL ---
Thank you for referring Rachael Thompson to [facility].? The patient is scheduled to be seen for therapy? ____x/week for ___ weeks. Please review, sign, date and return this plan of care RONALD. I agree with and certify that the following plan of care is medically necessary. Referring Physician Date Admitting Provider: Attending Provider: Bobby Curiel MD Referring Provider: *PT Outpatient Evaluation Start: 08/26/21 08:52 Freq: Status: Active Protocol: Document 09/11/21 09:52 ACR (Rec: 09/11/21 10:50 ACR [id number]) Therapy Assessment Status Assessment Status Assessment Status Progress Outpatient Past Medical History Cardiovascular History Hx Hypertension Yes Reproductive History Hx Post Menopausal Yes Evaluation Information Problem Diagnosis R tibial plateau fracture Onset 08/19/21 Subjective Information The patient reports that Query Text:As Reported By Patient/ therapy has really been Family helping her and she feels she can do quite a bit since she started. Walking for a period of time and steps are easier, but she gets achiness and fatigued quickly. She also has some difficulty with getting in and out of the car still. Pain Assessment Timing of Pain Assessment Timing of Pain Assessment Assessment Pain Scale Pain Scale Used Numeric (1 - 10) Self Report Pain Assessment Right Lateral Leg(s) Reported Pain Level 2 Greatest Pain Intensity 2 Pain Score Pain Score 2: Self Report Interventions Used Interventions Used By Clinicians Activity or ADL's,Electrical Stimulation,Exercise,Heat Lower Extremity Muscle Strength Testing Hip Strength Right Hip Flexion Strength 4 Good Left Hip Flexion Strength 4 Good Knee Strength Right Knee Flexion Strength 4 Good Knee Extension Strength 4 Good Left Knee Flexion Strength 4+ Good + Knee Extension Strength 4+ Good + Balance Assessment Tinetti Balance Assessment Sitting Balance Steady, safe Ability to Arise Able, uses arms to help Attempts to Arise Arises on 1st attempt Immediate Standing Balance Steady w/o support Standing Balance Narrow stance w/o support Nudged Response Staggers, catches self Standing with Eyes Closed Steady Step Pattern Turning 360 Degrees Continuous steps Stability Turning 360 Degrees Steady Sitting Down Uses arms or unsteady Initiati
--- NOTE | 2021-09-25 09:59 | PTOPEVAL ---
Thank you for referring Rachael Thompson to [facility].? The patient is scheduled to be seen for therapy? ____x/week for ___ weeks. Please review, sign, date and return this plan of care RONALD. I agree with and certify that the following plan of care is medically necessary. Referring Physician Date Admitting Provider: Attending Provider: Bobby Curiel MD Referring Provider: *PT Outpatient Evaluation Start: 08/26/21 08:52 Freq: Status: Active Protocol: Document 09/25/21 09:04 ACR (Rec: 09/25/21 09:58 ACR [id number]) Therapy Assessment Status Assessment Status Assessment Status Discharge Outpatient Past Medical History Cardiovascular History Hx Hypertension Yes Reproductive History Hx Post Menopausal Yes Evaluation Information Problem Diagnosis R tibial plateau fracture Onset 08/19/21 Subjective Information Patient states that her daily Query Text:As Reported By Patient/ activities are much easier, Family but she continues to take it a little easier because of the constant soreness. Patient states that getting in and out of the car is still a little difficult but it has been difficult for awhile. The patient states she is able to do all of her exercises at home and today is a good day to be done. Pain Assessment Timing of Pain Assessment Timing of Pain Assessment Assessment Pain Scale Pain Scale Used Numeric (1 - 10) Self Report Pain Assessment Right Lateral Leg(s) Reported Pain Level 3 Pain Description Soreness Greatest Pain Intensity 3 Pain Score Pain Score 3: Self Report Interventions Used Interventions Used By Clinicians Activity or ADL's,Exercise Lower Extremity Range of Motion Knee Range of Motion Right Knee Flexion Range of Motion - Active 115 Knee Extension Range of Motion - Active 0 Query Text: Lower Extremity Muscle Strength Testing Hip Strength Right Hip Flexion Strength 4+ Good + Left Hip Flexion Strength 4 Good Knee Strength Right Knee Flexion Strength 4+ Good + Knee Extension Strength 4 Good Left Knee Flexion Strength 5 Normal Knee Extension Strength 5 Normal Gait Assessment Gait Assessment Additional Ambulation Comments Patient ambulates into the clinic with slight antalgia due to decreased stance time
== END 2021-09-25 09:02 | disposition home or self-care (01) ==
LOC: CHSPT 08:48
PROVIDERS: PCP Family Medicine; Visit Provider Orthopaedic Surgery
DX: M84.361D Stress fracture, right tibia, subsequent encounter for fracture with routine healing (principal)
CPT/HCPCS: 97014; 97110; 97112; 97161; 97530; G0283

== ENCOUNTER 2021-11-05 09:55 | Emergency (ER) | payer MEDICARE, SELFPAY ==
--- NOTE | ~2021-11-05 | XR_ITS ---
EXAMINATION: XR knee LT 2V DATE: 11/05/2021 11:01 INDICATION: Left knee pain and swelling TECHNIQUE: Three views of the left knee were obtained. COMPARISON: 05/04/2013 FINDINGS: There is no fracture. Chondrocalcinosis is noted. There is moderate osteoarthritis of the m edial compartment. A large knee joint effusion is present. IMPRESSION: 1. Large knee joint effusion. 2. Osteoarthritis. Reviewed, dictated and finalized at location A. [employer]
[2021-11-05 10:33] VITALS: BP 134/74; PULSE 99; RESP 18; TEMP 36.2; O2SAT 97
--- NOTE | 2021-11-05 12:07 | ED.EXTPRO ---
HPI - Extremity Problem General Chief complaint: Extremity Problem,Nontraumatic Stated complaint: swollen left knee Source: patient and family Mode of arrival: ambulatory Limitations: no limitations History of Present Illness HPI Narrative: Left knee is painful and swollen. She states its been this way for a few weeks and isnt getting any better. SHe denies fevers, nausea, vomiting or any systemic symptoms. She states the knee starting hurting in the back , and had since wrapped around to the front. MD Complaint: joint swelling (left knee) and joint paint Onset (ago): week(s) Pain Consistency: constant Location: left Quality: sharp and constant Relieving factors: nothing Exacerbating factors: nothing and weight bearing (yovana up and down stairs) Associated symptoms: denies other symptoms Related Data Home Medications Medication Instructions Recorded Confirmed omega-3 fatty acids 1,000 mg 1,000 mg PO HS 08/20/20 08/19/21 capsule aspirin [EC Aspirin] 325 mg PO HS 03/05/21 08/19/21 cyanocobalamin (vitamin B-12) See Rx Instructions .ROUTE .COMPLEX 04/28/21 08/19/21 1,000 mcg/mL injection syringe Allergies Allergy/AdvReac Type Severity Reaction Status Date / Time No Known Allergies Allergy Mild NONE Verified 08/19/21 09:59 Review of Systems Review of Systems: All systems reviewed & are unremarkable except as noted in HPI and below Constitutional: Constitutional: Reports no additional constitutional complaints Eyes: Eyes: Reports no additional eye complaints ENT: Reports system reviewed and no additional complaints, except as documented Cardiovascular: Cardiovascular: Reports no additional cardiovascular complaints Respiratory: Respiratory: Reports no additional respiratory complaints Gastrointestinal: Gastrointestinal: Reports no additional gastrointestinal complaints Musculoskeletal: Musculoskeletal: Reports as per HPI and Reports joint swelling Integumentary/Breasts: Skin/Breast: Reports system reviewed and no additional complaints, except as docu Psychiatric: Psychiatric: Reports no additional psychiatric complaints Endocrine: Endocrine: Reports no additional endocrine complaints Hematologic/Lymphatic: Hematologic/Lymphatic: Reports no additional hematologic/lymphatic complaints Allergic/Immunologic: Allergic/Immunologic: Reports no additional allergic/immunologic complaints [facility] Past Medical History Medical History Dizziness Essential hypertension Mixed hyperlipidemia Peripheral vascular disease Tobacco abuse Urinary frequency Vision abnormalities Vitamin B12 deficiency Vitamin D deficiency Surgical History Surgical History History of arthroscopy of left knee Family History Family History Sibling Depression Patient's sister is Father Family history of emphysema Mother Family history of coronary artery disease Other Hypertension Social History Social History Smoking packs per day: 0.5 Smoking cigarettes per day: 10.0 Years smoked: 60 Smoking pack-years: 30.00 Tobacco type: cigarettes Second hand tobacco smoke exposure: No Alcohol intake: never Substance use: never Substance use type: does not use Gender identity (if verbalized by the patient): Female 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: No Agree to blood products: Yes Exam Const: General: no acute distress and alert Orientation/consciousness: patient oriented x3 HENMT: Head: normal to inspection Eyes: Conjunctivae: conjunctivae normal Neck: Neck: normal visual inspection Chest: Chest palpation & inspection: normal inspection of the chest Resp: Effort & Inspection: normal respiratory effort Skin: General skin exam: normal color Rashes: no rash
== END 2021-11-05 12:29 | disposition home or self-care (01) ==
PROVIDERS: Emergency Provider Emergency Medicine; PCP Family Medicine
DX: M25.462 Effusion, left knee (principal)
CPT/HCPCS: 73560; 99283

== ENCOUNTER 2021-11-25 08:18 | Outpatient (CLI) | payer MEDICARE, SELFPAY ==
--- NOTE | ~2021-11-25 | XR_ITS ---
XR knee RT 3V DATE: 11/25/2021 08:34 INDICATION: Generalized right knee pain. Injury from fall one year ago TECHNIQUE: AP, PA and lateral views COMPARISON: 08/09/2021 MR right knee examination 08/05/2021 right knee FINDINGS: There is diffuse osteopenia. No fracture or dislocation or joint effusion is evident. There is chondrocalcinosis at the medial and lateral compartments. Medial and lateral compartment ariella nt spaces are relatively preserved. IMPRESSION: Osteopenia Chondrocalcinosis Reviewed, dictated and finalized at location A. 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
== END 2021-11-25 08:19 | disposition home or self-care (01) ==
LOC: CHSIMG 08:21
PROVIDERS: PCP Family Medicine; Visit Provider Orthopaedic Surgery
DX: M25.561 Pain in right knee (principal)
CPT/HCPCS: 73562

== ENCOUNTER 2021-11-28 12:14 | Inpatient (IN) | payer MEDICARE, SELFPAY ==
[2021-11-28] VITALS (11 sets, daily range): BP systolic 153–168; BP diastolic 64–81; PULSE 74–99; RESP 14–22; TEMP 36.6–36.7; O2SAT 93–96; BMI 22.9
--- NOTE | ~2021-11-28 | NM_ITS ---
EXAMINATION: NM ayden stress w perfusion DATE: 12/02/2021 12:44 INDICATION: Syncope. Systolic dysfunction. TECHNIQUE: Rest images were obtained following intravenous administration of 9.44 mCi Tc99m tetrofosm in (Myoview). The patient was infused intravenously with Lexiscan (Regadenoson). Then, 30.2 mCi Tc99m tetrofosmin (Myoview) was administered intravenously, and stress images were obtained. Data was kavita nstructed into short axis and horizontal and vertical long axis SPECT images. Gated SPECT images were also obtained. COMPARISON: None. FINDINGS: Small region of mildly decreased perfusion at the apical inferior segment on the stress isaiah ges within a significantly larger region of likely artifactual decreased perfusion on the rest images which were obtained and involves much of the inferior, septal and anterior gonzalez with normal perfusi on in these regions on the stress images. This suggests that the defect on the stress images is more likely also artifactual rather than a small mild infarct. Otherwise normal perfusion on the stress im ages. There is normal left ventricular chamber size with mild to moderately decreased left ventricul ar ejection fraction which measures 37%. There is paradoxical septal motion. IMPRESSION: 1. Small mild fixed perfusion defect at the anterior inferior segment on the stress images equivocal for infarct versus artifact which is significantly more extensive involving many of the anterior, sep héctor and inferior segments on the rest images.. 2. Normal left ventricular size with mild to moderately decreased left ventricular fraction measuring 37%. 3. Paradoxical septal motion which has a wide differential including left bundle branch block. Correl ate with EKG. Reviewed, dictated and finalized at location A. STIFFENER IMPRESSION: 1. Small mild fixed perfusion defect at the anterior inferior segment on the st ress images equivocal for infarct versus artifact which is significantly more e xtensive involving many of the anterior, septal and inferior segments on the re st images.. 2. Normal left ventricular size with mild to moderately decreased left ventricu lar fraction measuring 37%. 3. Paradoxical septal motion which has a wide differential including left bundl e branch block. Correlate with EKG.
--- NOTE | ~2021-11-28 | CT_ITS ---
EXAMINATION: CT brain wo con INDICATION: Head injury COMPARISON: 03/05/2021 TECHNIQUE: Standard unenhanced head CT. The dose-length product (DLP) was 605.33 mGy-cm. The mA was a djusted according to patient size. Iterative reconstruction technique was employed. FINDINGS: There is no acute intraparenchymal hemorrhage. No evidence of mass lesion. No evidence of a cute infarction. There is mild periventricular and subcortical hypodensity probably related to small vessel ischemic disease. There is mild prominence of the sulci and ventricles related to cerebral atr ophy. Intracranial calcified cerebral atherosclerosis is noted. There are no extra-axial collections. There is no mass effect or midline shift. Changes in the globes are likely from ocular lens surgery. The visualized sinuses and mastoid air cells are well aerated. IMPRESSION: 1. No acute intracranial abnormality. 2. Age related findings. Reviewed, dictated and finalized at location A. LER FIRST
--- NOTE | ~2021-11-28 | CT_ITS ---
EXAMINATION: CT pelvis wo con DATE: 11/28/2021 13:49 INDICATION: Right hip pain. Fall. TECHNIQUE: Computed tomography (CT) of the pelvis was performed without intravenous contrast. Automat ed exposure control and iterative reconstruction technique were employed. The dose-length product was 160.56 mGy-cm. COMPARISON: Pelvis and right hip radiographs 11/28/21 FINDINGS: There is a stent in right common iliac artery. Stool distends the rectum. There is mild lum bar spondylosis. There is a comminuted intertrochanteric fracture of proximal right femur. The main d istal fracture fragment demonstrates posterior angulation, posterior displacement, 20 degrees varus a ngulation, and impaction. There is mild osteoarthritis of the hips. Osteitis pubis is noted. There i s moderate osteoarthritis of right sacral iliac joint and severe osteoarthritis of left sacroiliac mike int. IMPRESSION: 1. Comminuted intertrochanteric fracture of proximal right femur. 2. Mild osteoarthritis of the hips. Reviewed, dictated and finalized at location A. RVISOR WOOD CREW
--- NOTE | ~2021-11-28 | XR_ITS ---
EXAMINATION: XR hip RT 2V w AP pelvis DATE: 11/28/2021 13:35 INDICATION: Pelvis injury. TECHNIQUE: An anteroposterior view of the pelvis and 2 views of right hip were obtained. COMPARISON: Pelvis radiograph 01/02/2017 FINDINGS: There is a comminuted intertrochanteric fracture of proximal right femur. The main distal f racture fragment demonstrates posterior angulation and 20 degrees varus angulation. There is mild ost eoarthritis of the hips. There is mild lumbar spondylosis. There is a vascular stent overlying the ab domen. IMPRESSION: 1. Comminuted intertrochanteric fracture of proximal right femur. 2. Mild osteoarthritis of the hips. Reviewed, dictated and finalized at location A. ERN CHAIN BUILDER
--- NOTE | ~2021-11-28 | XR_ITS ---
XR surgery orthopedic 11/30/2021 09:15 Indication: Right gamma nail placement for internal fixation of fracture. Procedure: 5 fluoroscopic views of the right hip. 332 seconds of fluoroscopy. Comparison: CT dated 11/28/2021 Findings: Status post internal fixation of right femoral intertrochanteric fracture with right gamma nail and intramedullary philippe. Fracture in anatomic alignment post reduction. Please refer to procedura l report for details. Impression: 1: Right femoral intertrochanteric fracture in anatomic alignment post reduction with gamma nail. Reviewed, dictated and finalized at location A. GAGE LOAN COMPUTATION CLERK Impression: 1: Right femoral intertrochanteric fracture in anatomic alignment post reductio n with gamma nail.
--- NOTE | ~2021-11-28 | US_ITS ---
EXAMINATION: US carotid duplex BI DATE: 11/29/2021 09:16 INDICATION: Syncope. TECHNIQUE: Grayscale, color Doppler, and pulsed Doppler images of the cervical carotid arteries were obtained. The degree of vessel stenosis is placed in one of the following categories: normal, <50%, 5 0-69%, >=70% but less than near-occlusion, near-occlusion, or total occlusion. Note that percent sten osis relative to normal distal artery lumen diameter is indirectly measured from velocity measurement s as described by Jamari, et al. Radiology 2003; 229:340-346. COMPARISON: Ultrasound 03/07/2021 FINDINGS: RIGHT: The right common carotid artery (CCA) peak systolic velocity (PSV) is 73 cm/s. The right internal car otid artery (ICA) PSV is 66 cm/s. The right ICA end-diastolic velocity (EDV) is 11 cm/s. The right IC A/CCA PSV ratio is 0.9. Grayscale and color Doppler images yield an estimate of <50% diameter reducti on from plaque in the ICA. There is antegrade flow in the right vertebral artery. LEFT: The left CCA PSV is 77 cm/s. The left ICA PSV is 77 cm/s. The left ICA EDV is 13 cm/s. The left ICA/C CA PSV ratio is 1.0. Grayscale and color Doppler images yield an estimate of <50% diameter reduction from plaque in the ICA. There is antegrade flow in the left vertebral artery. IMPRESSION: 1. <50% stenosis in the right internal carotid artery. 2. <50% stenosis in the left internal carotid artery. Reviewed, dictated and finalized at location A. ZZA ARCHITECT
--- NOTE | ~2021-11-28 | XR_ITS ---
EXAMINATION: XR chest 1V portable DATE: 11/28/2021 15:41 INDICATION: Hypertension. Preop. TECHNIQUE: A single frontal view of the chest was obtained. COMPARISON: Chest 2 views 12/09/2017 FINDINGS: The chest demonstrates clear lungs without pneumonia, pleural effusion, or pneumothorax. Th e heart size is normal. IMPRESSION: 1. No acute cardiopulmonary disease. Reviewed, dictated and finalized at location A. WALL FOREMAN
--- NOTE | 2021-11-28 12:52 | ECG_ITS ---
Measurements Intervals [place] Rate: 73 P: 83 OK: 148 QRS: 62 QRSD: 136 T: 221 QT: 394 QTc: 437 Interpretive Statements SINUS RHYTHM WITH SINUS ARRHYTHMIA ATRIAL PREMATURE COMPLEX LEFT BUNDLE BRANCH BLOCK BASELINE ARTIFACT- I, II, AVR, AVL ABNORMAL ECG Electronically Signed On 11-28-2021 15:35:43 MASS SPEC by Romain Price D.O.
--- NOTE | 2021-11-28 12:55 | ED.FALL ---
HPI - Fall General Chief Complaint: Fall Stated Complaint: FALL/R HIP PAIN Time Seen by Provider: 11/28/21 12:30 Source: patient Mode of arrival: EMS Limitations: no limitations History of Present Illness HPI Narrative: Patient is a 76-year-old female brought in by EMS after a fall at home in her garage. Patient does not know why she fell. Patient denies being symptomatic before the fall. Patient does admit to hitting her head on the ground but denies any loss of consciousness. Patient also complaining of right hip pain. Patient denies any dizziness, speech or visual disturbance, focal weakness or numbness, chest pain, shortness of breath, abdominal pain, back pain or any other extremity pain/injury. Related Data Home Medications Medication Instructions Recorded Confirmed omega-3 fatty acids 1,000 mg 1,000 mg PO HS 08/20/20 11/19/21 capsule aspirin [EC Aspirin] 325 mg PO HS 03/05/21 11/19/21 cyanocobalamin (vitamin B-12) See Rx Instructions .ROUTE .COMPLEX 04/28/21 08/19/21 1,000 mcg/mL injection syringe Allergies Allergy/AdvReac Type Severity Reaction Status Date / Time No Known Allergies Allergy Mild NONE Verified 11/25/21 09:18 Review of Systems Review of Systems: All systems reviewed & are unremarkable except as noted in HPI and below Constitutional: Constitutional: Denies body ache(s), Denies chills, Denies excessive sweating, Denies fatigue, Denies fever(s), Denies headache(s), Denies lethargy, Denies malaise, Denies weakness and Denies weight loss Eyes: Eyes: Denies blurry vision, Denies change in vision and Denies loss of vision ENT: Denies dizziness, Denies ear discharge, Denies headache(s), Denies lip swelling, Denies epistaxis, Denies nasal congestion, Denies neck pain, Denies throat swelling and Denies tongue swelling Cardiovascular: Cardiovascular: Denies chest pain, Denies chest pain at rest, Denies chest pain with activity, Denies diaphoresis, Denies rapid heart rate, Denies edema, Denies irregular heart rhythm, Denies lightheadedness, Denies palpitations, Denies dyspnea and Denies dyspnea on exertion Respiratory: Respiratory: Denies chest congestion, Denies cough, Denies hemoptysis, Denies dyspnea and Denies dyspnea on exertion Gastrointestinal: Gastrointestinal: Denies abdominal pain, Denies melena, Denies hematochezia, Denies diarrhea, Denies nausea, Denies vomiting and Denies hematemesis Musculoskeletal: Musculoskeletal: Denies abnormal gait, Denies deformity, Denies joint swelling, Denies limited range of motion, Denies neck pain and Denies numbness Neurologic: Denies Abnormal speech present, Denies abnormal gait, Denies confusion, Denies dizziness, Denies headache(s), Denies focal weakness, Denies loss of vision, Denies numbness, Denies Other visual disturbances, Denies Sensory deficit (Neuro) and Denies weakness Psychiatric: Psychiatric: Denies confusion, Denies depression, Denies auditory hallucinations, Denies homicidal ideation and Denies suicidal ideation Endocrine: Endocrine: Denies cold intolerance, Denies excessive sweating, Denies fatigue, Denies heat intolerance and Denies palpitations Hematologic/Lymphatic: Hematologic/Lymphatic: Denies easy bleeding and Denies easy bruising Allergic/Immunologic: Allergic/Immunologic: Denies lip swelling, Denies throat swelling and Denies tongue swelling PMFSH Past Medical History Medical History Dizziness Essential hypertension Mixed hyperlipidemia Peripheral vascular disease Tobacco abuse Urinary frequency Vision abnormalities Vitamin B12 deficiency Vitamin D deficiency Surgical History Surgical History History of arthroscopy of left knee Family History Family History Sibling Depression Patient's sister is Father Family history of emphysema Mother
[2021-11-28 13:11] LABS: Basophils Absolute Auto 0.1 K/mm3 (0.0-0.1); Basophils Percent Auto 0.5 % (0.2-1.2); Eosinophils Percent Auto 0.2 % (0-4.4); Hematocrit 39.5 % (37.0-47.0); Immature Granulocyte Absolute 0.17 K/mm3 (0.00-0.031); Lymphocytes Absolute Auto 1.05 K/mm3 (0.9-3.2); Lymphocytes Percent Auto 6.2 % (18.3-44.2); Mean Corpuscular HGB Conc 32.9 g/dl (32-36); Mean Corpuscular Hemoglobin 31.8 pg (26-34); Mean Corpuscular Volume 96.6 fl (80-100); Mean Platelet Volume 9.5 fl (7.4-10.4); Monocytes Absolute Auto 1.3 K/mm3 (0.1-0.6); Neutrophils Absolute Auto 14.2 K/mm3 (1.3-6.7); Neutrophils Percent Auto 84.1 % (45.5-73.1); Platelet Count Result 247 k/mm3 (150-375); Red Blood Count 4.09 M/mm3 (4.2-5.4); Red Cell Distribution Width 13.2 % (11.5-14.5); White Blood Count 16.8 K/mm3 (4.5-10.0)
[2021-11-28] MEDS: LACTATED RINGERS 1,000 ML 999 ML IV CONT (13:19)
[2021-11-28 13:23] LABS: Anion Gap 5 mmol/L (8-16); Blood Urea Nitrogen 16 mg/dL (7-17); Calcium 8.8 mg/dL (8.4-10.2); Carbon Dioxide 25 mmol/L (22-30); Chloride 106 mmol/L (98-107); Estimated CRCL calculation 34 ml/min; Estimated Glomerular Filt Rate > 60; Glucose 117 mg/dL (65-110); Potassium 4.1 mmol/L (3.4-5.0); Sodium 136 mmol/L (137-145)
[2021-11-28 13:34] LABS: Troponin I < 0.012 ng/mL (0.000-0.034)
[2021-11-28] MEDS: PROMETHAZINE HCL 25 MG/ML AMPUL 12.5 MG IV PUSH (14:11)
[2021-11-28] MEDS: HYDROmorphone HCL INJ (*CRX) 1 MG/ML SYR 0.5 MG IV PUSH ×2 (14:16→21:28)
[2021-11-28 14:56] LABS: Add Urine Microscopic? NO; Appearance Urine Clear (Clear); Bilirubin Urine Negative (Negative); Blood Urine Negative (Negative); Color Urine Yellow (Yellow); Glucose Urine UA Negative (Negative); Ketones Urine Negative (Negative); Leukocyte Esterase Ur Negative LEU/UL (Negative); Nitrate Urine Negative (Negative); Protein Urine Negative (Negative); Specific Grav Ur 1.017 (1.001-1.035); Urobilinogen Urine Negative mg/dL (<2.0)
[2021-11-28 15:02] LABS: Mucus Urine Rare /lpf; RBC Urine 0-2 /hpf (0-2); Squamous Epithelial Cell Urine Rare /hpf (Few); WBC Urine 0-3 /hpf
--- NOTE | 2021-11-28 15:56 | PC.NURSE ---
Patient denied need for additional pain medication or antiemtic at this time.
--- NOTE | 2021-11-28 16:05 | PM.CNOR ---
Assessment and Plan Additional Plan ESTEBAN HAS A RIGHT INTERTROCHANTERIC HIP FRACTURE AND WILL NEED INSERTION OF GAMMA [place] RIGHT FEMUR. HISTORY, EXAM AND RADIOGRAPHS REVIEWED WITH THE PATIENT. REFERRING PHYSICIAN RECORDS AND IMAGES REVIEWED. CONDITION, NATURE, ETIOLOGY AND COURSE OF NATURAL HISTORY REVIEWED. CONSERVATIVE AND OPERATIVE TREATMENT OPTIONS REVIEWED WELL THE RISKS AND BENEFITS OF EACH. WE DISCUSSED THE SURGICAL PROCEDURE. AT LENGTH. DISCUSSED NONOPERATIVE AND OPERATIVE TREATMENT OPTIONS WITH THE PATIENT. THE PATIENT'S QUESTIONS WERE ANSWERED. THE PATIENT DESIRES OPERATIVE TREATMENT. DISCUSSED ___INSERTION OF GAMMA [place] RIGHT FEMUR . RISKS OF SURGERY INCLUDING BUT NOT LIMITED TO NEUROVASCULAR DAMAGE, WOUND COMPLICATIONS, BLOOD CLOT, PULMONARY EMBOLUS, STROKE, ID, ANESTHETIC RISKS UP TO AND INCLUDING WERE REVIEWED. CONTINUED PAIN AND POSSIBLE DYSFUNCTION WERE EXPLAINED. NO GUARANTEES WERE OFFERED. THE PATIENT UNDERSTANDS AND WISHES TO PROCEED. History of Present Illness HPI Consult date: 11/28/21 Consult reason: fracture (RIGHT INTERTROCHANTERIC HIP FRACTURE) Chief complaint: FALL/R HIP PAIN Narrative: ESTEBAN IS HERE FOR A FALL SHE HAD TODAY AND HAS A RIGHT IT FRACTURE OF THE HIP. SHE DENIES ANY OTHER PROBLEMS. SHE DENIES LEFT HIP PAIN OR BACK OR NECK PAIN. SHE DENIES ANY SOB OR CHEST PAIN OR DIZZINESS. Review of Systems Review of Systems: All systems reviewed & are unremarkable except as noted in HPI and below PMFSH Past Medical History Medical History Dizziness Essential hypertension Mixed hyperlipidemia Peripheral vascular disease Tobacco abuse Urinary frequency Vision abnormalities Vitamin B12 deficiency Vitamin D deficiency Surgical History Surgical History History of arthroscopy of left knee Family History Family History Sibling Depression Patient's sister is Father Family history of emphysema Mother Family history of coronary artery disease Other Hypertension Social History Social History Smoking packs per day: 0.5 Smoking cigarettes per day: 10.0 Years smoked: 60 Smoking pack-years: 30.00 Tobacco type: cigarettes Second hand tobacco smoke exposure: No Alcohol intake: never Substance use: never Substance use type: does not use Gender identity (if verbalized by the patient): Female 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: No Agree to blood products: Yes Meds Home Medications and Allergies Home Medications Medication Instructions Recorded Confirmed Type omega-3 fatty acids 1,000 mg 1,000 mg PO HS 08/20/20 11/19/21 History capsule ergocalciferol (vitamin D2) 1,250 1,250 mcg PO WEEKLY #14 cap 03/04/21 11/19/21 Rx mcg (50,000 unit) capsule aspirin [EC Aspirin] 325 mg PO HS 03/05/21 11/19/21 History diclofenac sodium 1 % topical gel 2 g TOPICAL BID-TID #100 g 03/19/21 11/19/21 Rx cyanocobalamin (vitamin B-12) See Rx Instructions .ROUTE .COMPLEX 04/28/21 08/19/21 History 1,000 mcg/mL injection syringe cilostazol 100 mg tablet 100 mg PO BID #180 tablet 06/09/21 11/19/21 Rx amlodipine 2.5 mg tablet See Rx Instructions .ROUTE 08/31/21 11/19/21 Rx .COMPLEX #90 tablet rosuvastatin 5 mg tablet See Rx Instructions .ROUTE 08/31/21 11/19/21 Rx .COMPLEX #90 tablet lisinopril 40 mg tablet 40 mg PO DAILY #30 tablet 10/17/21 11/19/21 Rx Allergies Allergy/AdvReac Type Severity Reaction Status Date / Time No Known Allergies Allergy Mild NONE Verified 11/25/21 09:18 Vital Signs Vital Signs - 24 hr 11/28/21 12:31 11/28/21 12:35 11/28/21 12:46 Pulse Rate 77 76 83 Respiratory Rate 19 22 H 19 Blood Pressure 168/76 H 168/76 H 153/70 H Pulse Oximetry 96 96 95 Exam Back/Spine/Pelvis: Cervical Spine:
--- NOTE | 2021-11-28 16:20 | PM.IMHP ---
H&P: HPI History of Present Illness Date/Time: 11/28/21 16:20 Chief Complaint: Right hip pain after fall. Narrative: This is a very pleasant 76-year-old female smoker with hypertension, hyperlipidemia, and peripheral arterial disease who presented to the emergency department earlier today via EMS from home for evaluation of right hip pain after a fall. The patient was out in her garage smoking a cigarette and the next thing she knew she was lying on her right side on the ground and was unable to get herself up due to pain in the right hip. She does not know how she fell and in fact she does not know if she was sitting or standing when the fall occurred. The patient maintains that she was feeling in her usual state of health today and she does not recall feeling poorly. She does not believe that she lost consciousness however she has not been able to give me any insight as to what occurred after she went into the garage to have a cigarette. In any event, she was found to have a right hip fracture on imaging and she is being admitted in this setting. At the time my evaluation she has mild discomfort in the right hip but it is manageable if she is lying still. She denies recent cold and flu symptoms, headache, vertigo, lightheadedness and dizziness, near syncope, chest pain, pleuritic pain, palpitations, shortness of breath, orthopnea, PND, lower extremity edema, nausea, and vomiting. She has no known history of coronary artery disease or cardiac dysrhythmia. Review of Systems Review of Systems: Twelve systems were reviewed. No recent illness. She denies sick contacts. She has been having issues with her right knee and is being followed by Dr. Curiel. In fact she had an injection done at his office a couple of days ago. She seems to be doing well in that regard. No history of venous thromboembolism. Except as documented, all other systems were reviewed and are negative. [facility] Past Medical History Medical History (Updated 11/28/21 @ 22:28 by Cassie Garza PA-C) Essential hypertension Mixed hyperlipidemia Osteoarthritis Osteoporosis Peripheral vascular disease Tobacco abuse Transient ischemic attack Vitamin B12 deficiency Vitamin D deficiency Surgical History Surgical History (Updated 11/28/21 @ 22:21 by Cassie Garza PA-C) History of appendectomy History of arthroscopy of left knee History of tonsillectomy History of tubal ligation History of vascular surgery (2007) Right common iliac artery stent. Family History Family History Sibling Depression Patient's sister is Father Family history of emphysema Mother Family history of coronary artery disease Other Hypertension Social History Social History (Updated 11/28/21 @ 22:22 by Cassie Garza PA-C) Social History: Surrogate decision maker: Martin Thompson, spouse. Code status: Full code. Smoking packs per day: 0.5 Smoking cigarettes per day: 10.0 Years smoked: 60 Smoking pack-years: 30.00 Smoking status: Current every day smoker Tobacco type: cigarettes Second hand tobacco smoke exposure: No Alcohol intake: never Substance use: never Substance use type: does not use Additional living arrangements comments: The patient lives with her in [place]. 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 Meds Home Medications and Allergies Home Medications Medication Instructions Recorded Confirmed Type omega-3 fatty acids 1,000 mg 1,000 mg PO HS 08/20/20 11/28/21 History capsule aspirin [Ecotrin] 325 mg PO HS 03/05/21 11/28/21 History cilostazol 100 mg tablet 100 mg PO BID #180 tablet 06/09/21 11/28/21 Rx amlodipine 2.5 mg tablet See Rx Instructions .ROUTE 08/31/21 11/28/21 Rx .COMPLEX #90 tablet rosuvastatin 5 mg tablet See Rx Instructions .ROUTE 08/31/21 11/28/21 Rx .COMPLEX #90 tablet lisinopril 20 mg
--- NOTE | 2021-11-28 17:14 | PC.NURSE ---
Patient care report called to SARAI Menard on [address] [place] [address] for patient assigned room 256.
--- NOTE | 2021-11-28 17:43 | ADMGEN ---
This patient, Rachael Thompson, was admitted to Medical Room 256-. Patient/family oriented to hospital policies and general routines including ID bracelet, bed and alarms, visiting hours, pain management, procedures, bathroom and other care routines, personal items, smoking policy, room service/diet, and visiting hours. Information on how to activate the Rapid Response Team has been discussed. Patient/Family are encouraged to report perceived risks to care and to ask questions if they do not understand what they are told or what they should do.
[2021-11-28] MEDS: LACTATED RINGERS 1,000 ML 90 ML IV CONT (17:46)
[2021-11-28] MEDS: ONDANSETRON INJ 4 MG/2 ML VIAL IV PUSH (21:28)
[2021-11-28 23:10] LABS: Alanine Aminotransferase 11 U/L (4-35); Albumin Level 3.6 g/dL (3.5-5.1); Alkaline Phosphatase 61 U/L (38-126); Anion Gap 5 mmol/L (8-16); Aspartate Amino Transferase 21 U/L (14-36); Bilirubin,Total 0.5 mg/dL (0.2-1.3); Blood Urea Nitrogen 12 mg/dL (7-17); Calcium 8.6 mg/dL (8.4-10.2); Carbon Dioxide 24 mmol/L (22-30); Chloride 105 mmol/L (98-107); Estimated CRCL calculation 43 ml/min; Estimated Glomerular Filt Rate > 60; Glucose 137 mg/dL (65-110); Potassium 3.7 mmol/L (3.4-5.0); Sodium 134 mmol/L (137-145)
[2021-11-29] VITALS (13 sets, daily range): BP systolic 149–177; BP diastolic 78–84; PULSE 75–97; RESP 16–22; TEMP 36.4–37.4; O2SAT 92–93
--- NOTE | 2021-11-29 00:01 | ECG_ITS ---
Measurements Intervals [place] Rate: 81 P: 85 SD: 154 QRS: 55 QRSD: 136 T: 239 QT: 372 QTc: 433 Interpretive Statements SINUS RHYTHM ATRIAL PREMATURE COMPLEX LEFT BUNDLE BRANCH BLOCK BASELINE ARTIFACT- I, II ABNORMAL ECG Electronically Signed On 11-29-2021 8:39:32 ENVIRONMENTAL PROTECTION ECONOMIST by Romain Price D.O.
[2021-11-29 00:31] LABS: Thyroid Stimulating Hormone Reflex 0.626 uIU/mL (0.465-4.68)
[2021-11-29] MEDS: LACTATED RINGERS 1,000 ML 90 ML IV CONT ×2 (01:08→11:06)
[2021-11-29] MEDS: amLODIPine BESYLATE 2.5 MG TABLET BY MOUTH ×2 (01:08→23:03)
[2021-11-29] MEDS: HYDROmorphone HCL INJ (*CRX) 1 MG/ML SYR 0.5 MG IV PUSH (03:15)
[2021-11-29] MEDS: METOPROLOL TARTRATE TAB 25 MG, METOPROLOL TARTRATE TAB 50 MG 75 MG PO (03:16)
[2021-11-29 06:00] LABS: Hematocrit 39.8 % (37.0-47.0); Hemoglobin 12.9 g/dL (12.0-15.0); Mean Corpuscular HGB Conc 32.4 g/dl (32-36); Mean Corpuscular Hemoglobin 31.6 pg (26-34); Mean Corpuscular Volume 97.5 fl (80-100); Mean Platelet Volume 10.3 fl (7.4-10.4); Platelet Count Result 264 k/mm3 (150-375); Red Blood Count 4.08 M/mm3 (4.2-5.4); Red Cell Distribution Width 13.2 % (11.5-14.5); White Blood Count 13.6 K/mm3 (4.5-10.0)
[2021-11-29 06:17] LABS: Alanine Aminotransferase 11 U/L (4-35); Albumin Level 3.6 g/dL (3.5-5.1); Alkaline Phosphatase 57 U/L (38-126); Anion Gap 5 mmol/L (8-16); Aspartate Amino Transferase 17 U/L (14-36); Bilirubin,Total 0.7 mg/dL (0.2-1.3); Blood Urea Nitrogen 10 mg/dL (7-17); Calcium 8.5 mg/dL (8.4-10.2); Carbon Dioxide 24 mmol/L (22-30); Chloride 102 mmol/L (98-107); Estimated CRCL calculation 38 ml/min; Estimated Glomerular Filt Rate > 60; Glucose 131 mg/dL (65-110); Magnesium 2.2 mg/dL (1.6-2.3); Potassium 3.9 mmol/L (3.4-5.0); Sodium 131 mmol/L (137-145)
--- NOTE | 2021-11-29 07:49 | PM.CNCAR ---
Assessment and Plan Assessment and plan (1) Preop cardiovascular exam: Code(s): Z01.810 - Encounter for preprocedural cardiovascular examination Status: Acute Assessment and Plan: Risk profile: Asymptomatic from cardiac standpoint, Moderate systolic dysfunction, PAT, PAD, Hypertension, Dyslipidemia, Smoking. Functional status: Poor <4 METs due to arthritis and possibly JANE. Surgery: Orthopedic which is moderate cardiac risk. Overall risk stratification: She is at at least moderately high cardiac risk for noncardiac surgery given the above. Unfortunately, it Wednesday and we do not perform stress testing on weekends. Discuss with patient about this and that we have to weigh the risks/benefits of surgery. She will need to discuss with ortho further about it. (2) PAT (paroxysmal atrial tachycardia): Code(s): I47.1 - Supraventricular tachycardia Status: Acute Assessment and Plan: TSH is OK. Check Mag level. Start Metoprolol Tartate 50 mg PO BID to suppress PAC's and PAT. (3) Left bundle branch block: Code(s): I44.7 - Left bundle-branch block, unspecified Status: Acute (4) Peripheral vascular disease: Code(s): I73.9 - Peripheral vascular disease, unspecified Status: Acute Assessment and Plan: She is on Cilostazol. (5) Tobacco abuse: Code(s): Z72.0 - Tobacco use Status: Acute Assessment and Plan: Counseled regarding smoking cessation. (6) Mixed hyperlipidemia: Code(s): E78.2 - Mixed hyperlipidemia Status: Acute Assessment and Plan: On Rosuvastatin. (7) Essential hypertension: Code(s): I10 - Essential (primary) hypertension Status: Acute Assessment and Plan: High. Monitor as starting Metoprolol. (8) Systolic dysfunction: Code(s): I51.9 - Heart disease, unspecified Status: Acute Assessment and Plan: Check official echo. She is on Lisinopril. Starting Metoprolol as above. Will need lexiscan stress test on Wednesday to assess for ischemia. History of Present Illness History of Present Illness Consult date/time: 11/29/21 07:49 Reason for consult: Preop risk stratify; atrial flutter/tachycardia 76 yr old woman admitted after a fall with right hip fracture. She has a history of PAD with stenting of her right common iliac artery at least several years ago but patient unsure when, hypertension, dyslipidemia, smoking. Reports she was in her garage smoking when next thing she knows she was on the floor. She does not recall getting dizzy, but she was passed out. She normally can walk up to 1 block and limited by arthritis in her legs. She smokes 1/2 ppd. Denies chest pain, sob, orthopnea, PND, edema, palpitations. EKG: Sinus rhythm with LBBB, PAC's. Telemetry shows intermittent atrial tachycardia up to 150's bpm. CXR: Normal. Hip xrays: Comminuted intertrochanteric fracture of prox right femur. Prelim echo as it is being done while I was in room shows EF 40%. Reason For Visit: Right Hip Fracture Review of Systems Review of Systems: All systems reviewed & are unremarkable except as noted in HPI and below Constitutional: Constitutional: Reports as per HPI, Denies chills and Denies fever(s) Cardiovascular: Cardiovascular: Reports as per HPI, Denies chest pain, Denies leg edema and Denies lightheadedness Respiratory: Respiratory: Reports as per HPI and Denies dyspnea Gastrointestinal: Gastrointestinal: Reports as per HPI and Denies abdominal pain Genitourinary: Genitourinary: Reports as per HPI and Denies dysuria Musculoskeletal: Musculoskeletal: Reports as per HPI and Reports arthralgias Neurologic: Reports as per HPI, Denies dizziness and Reports syncope [facility] Past Medical History Medical History (Updated 11/29/21 @ 07:57 by Romain Price DO) Essential hypertension Mixed hyperlipidemia Osteoarthritis Osteoporosis Peripheral vascular disease Tobacco abuse Transient ischemic jae
[2021-11-29] MEDS: ROSUVASTATIN 5 MG TABLET BY MOUTH (09:18)
[2021-11-29] MEDS: METOPROLOL TARTRATE 50 MG TAB PO ×2 (09:18→23:02)
[2021-11-29] MEDS: lisinopriL 20 MG TABLET PO (09:18)
[2021-11-29 09:46] LABS: Hemoglobin A1C 5.6 % (<5.7)
[2021-11-29] MEDS: oxyCODONE/ACETAMINOPHEN (*CRX) 5-325 MG TABLET 1 TABLET PO ×2 (11:05→17:02)
--- NOTE | 2021-11-29 12:06 | PM.PNORT ---
Progress Note: A&P Additional Plan RIGHT IT FEMUR FRACTURE. IF PATIENT REMAINS STABLE TODAY WILL PROCEED WITH IM [place] INSERTION TMRW. PATIENT UNDERSTANDS IMPLICATION OF NEW ONSET FINDS AND SURGICAL RISKS Subjective Subjective Date/Time Seen: 11/29/21 12:06 PATIENT IS COMFORTABLE. SUEGERY DELAYED DUE TO NEW ONSET CARDIAC PROBLEMS. CURRENTLY NO CP OR SOB Exam Extrem: Other: VSS AFEBRILE NV INTACT CALF SOFT NEG HOMANS SIGN Objective Data Vital Signs Vital Signs: Vital Signs - 24 hr 11/28/21 12:31 11/28/21 12:35 11/28/21 12:46 Temperature Pulse Rate 77 76 83 Respiratory Rate 19 22 H 19 Blood Pressure 168/76 H 168/76 H 153/70 H Pulse Oximetry 96 96 95 11/28/21 13:01 11/28/21 13:18 11/28/21 15:10 Temperature Pulse Rate 87 75 96 Respiratory Rate 19 16 17 Blood Pressure 165/77 H 156/64 H 167/81 H Pulse Oximetry 96 11/28/21 15:16 11/28/21 16:46 11/28/21 17:55 Temperature 36.6 C Pulse Rate 74 80 74 Respiratory Rate 16 14 14 Blood Pressure 160/70 H 160/69 H 167/79 H Pulse Oximetry 96 96 11/28/21 20:21 11/28/21 22:00 11/29/21 00:00 Temperature 36.7 C Pulse Rate 80 99 92 Respiratory Rate 20 Blood Pressure 159/73 H Pulse Oximetry 93 11/29/21 03:00 11/29/21 03:02 11/29/21 03:16 Temperature 37.4 C 37.4 C Pulse Rate 97 97 84 Respiratory Rate 22 H 22 H Blood Pressure 177/83 H 177/83 H Pulse Oximetry 93 93 11/29/21 04:00 11/29/21 08:00 11/29/21 09:18 Temperature Pulse Rate 97 75 97 Respiratory Rate Blood Pressure Pulse Oximetry Intake/Output Intake/Output: Intake & Output 11/26/21 11/27/21 11/28/21 11/29/21 23:59 23:59 23:59 23:59 Intake Total 2120 Output Total 800 Balance 1320 Meds/Results Medications: Active Medications Generic Name Dose Route Start Last Admin Trade Name Freq PRN Reason Stop Dose Admin Amlodipine Besylate 2.5 mg 11/28/21 23:10 11/29/21 01:08 Amlodipine Besylate 2.5 Mg Tablet BY MOUTH 2.5 mg HS IGNACIO Administration Hydromorphone HCl 0.5 mg 11/28/21 15:39 11/29/21 03:15 Hydromorphone Hcl Inj (*Crx) 1 Mg/Ml Syr IV PUSH 0.5 mg Q4H PRN Administration Pain Rated 7-10 Lactated Ringer's 1,000 mls @ 90 mls/hr 11/28/21 15:40 11/29/21 11:06 Lr - Lactated Ringers Iv IV CONT 90 mls/hr .[id number] IGNACIO Administration Lisinopril 20 mg 11/29/21 09:00 11/29/21 09:18 Lisinopril 20 Mg Tablet PO 20 mg DAILY IGNACIO Administration Metoprolol Tartrate 50 mg 11/29/21 09:00 11/29/21 09:18 Metoprolol Tartrate 50 Mg Tab PO 50 mg Q12HR IGNACIO Administration Ondansetron HCl 4 mg 11/28/21 15:39 11/28/21 21:28 Ondansetron Inj 4 Mg/2 Ml Vial IV PUSH 4 mg Q4H PRN Administration Nausea Oxycodone/Acetaminophen 1 tablet 11/29/21 09:44 11/29/21 11:05 Oxycodone/Acetaminophen (*Crx) 5-325 Mg Tablet PO 1 tablet Q6H PRN Administration Pain Rated 4-6 Rosuvastatin Calcium 5 mg 11/29/21 09:00 11/29/21 09:18 Rosuvastatin 5 Mg Tablet BY MOUTH 5 mg DAILY IGNACIO Administration Radiology Results: ITS Impressions Hip/Pelvis X-Ray 11/28/21 13:35 IMPRESSION: 1. Comminuted intertrochanteric fracture of proximal right femur. 2. Mild osteoarthritis of the hips. Pelvis CT 11/28/21 13:49 IMPRESSION: 1. Comminuted intertrochanteric fracture of proximal right femur. 2. Mild osteoarthritis of the hips. Head CT 11/28/21 13:51 IMPRESSION: 1. No acute intracranial abnormality. 2. Age related findings. Chest X-Ray 11/28/21 15:44 IMPRESSION: 1. No acute cardiopulmonary disease. Carotid Doppler Study 11/29/21 09:22 IMPRESSION: 1. <50% stenosis in the right internal carotid artery. 2. <50% stenosis in the left internal carotid artery. Labs Labs: Laboratory Results - last 24 hr 11/28/21 11/28/21 11/28/21 13:04 13:04 14:46 WBC 16.8 H RBC 4.09 L Hgb 13.0 Hct 39.5 MCV 96.6 MCH 31.8 MCHC 32.9 RDW 13.
--- NOTE | 2021-11-29 14:41 | WPDANESEPP ---
Anes - Eval Pre Procedure Procedure: Gamma Nail Right Hip Date/Time: 11/29/21 14:41 Surgeon: Moisés Preop Diagnosis: IT Fracture Right Hip Pre Op Diagnosis: Right Hip Fracture Patient Data Age: 76 Gender: F Height: 1.55 m Weight: 57.1 kg Last Vital Signs Temp 97.6 F 11/29/21 14:00 Pulse 83 11/29/21 14:00 Resp 22 H 11/29/21 14:00 BP 149/84 H 11/29/21 14:00 Pulse Ox 92 11/29/21 14:00 Allergies Allergy/AdvReac Type Severity Reaction Status Date / Time No Known Allergies Allergy Mild NONE Verified 11/28/21 18:05 Home Medications Medication Instructions Recorded Confirmed Type omega-3 fatty acids 1,000 mg 1,000 mg PO HS 08/20/20 11/28/21 History capsule aspirin [Ecotrin] 325 mg PO HS 03/05/21 11/28/21 History cilostazol 100 mg tablet 100 mg PO BID #180 tablet 06/09/21 11/28/21 Rx amlodipine 2.5 mg tablet See Rx Instructions .ROUTE 08/31/21 11/28/21 Rx .COMPLEX #90 tablet rosuvastatin 5 mg tablet See Rx Instructions .ROUTE 08/31/21 11/28/21 Rx .COMPLEX #90 tablet lisinopril 20 mg PO DAILY 11/28/21 11/28/21 History Laboratory Tests 11/28/21 11/28/21 11/28/21 14:46 22:51 22:51 WBC RBC Hgb Hct MCV MCH MCHC RDW Plt Count MPV Sodium 134 mmol/L L mmol/L (137-145) Potassium 3.7 mmol/L mmol/L (3.4-5.0) Chloride 105 mmol/L mmol/L (98-107) Carbon Dioxide 24 mmol/L mmol/L (22-30) Anion Gap 5 mmol/L L mmol/L (8-16) BUN 12 mg/dL mg/dL (7-17) Creatinine 0.70 mg/dL mg/dL (0.7-1.0) Estim Creat Clear Calc 43 ml/min ml/min Estimated GFR > 60 (59 - ) Glucose 137 mg/dL H mg/dL (65-110) Hemoglobin A1c Calcium 8.6 mg/dL mg/dL (8.4-10.2) Magnesium 2.0 mg/dL mg/dL (1.6-2.3) Total Bilirubin 0.5 mg/dL mg/dL (0.2-1.3) AST 21 U/L U/L (14-36) ALT 11 U/L U/L (4-35) Alkaline Phosphatase 61 U/L U/L (38-126) Troponin I 0.030 ng/mL ng/mL (0.000-0.034) Total Protein 6.0 g/dL L g/dL (6.3-8.2) Albumin 3.6 g/dL g/dL (3.5-5.1) TSH (Reflex) 0.626 uIU/mL uIU/mL (0.465-4.68) Urine Color Yellow (Yellow) Urine Appearance Clear (Clear) Urine pH 5.0 (5.0-9.0) Ur Specific [place] 1.017 (1.001-1.035) Urine Protein Negative mg/dL mg/dL (Negative) Urine Glucose (UA) Negative mg/dL mg/dL (Negative) Urine Ketones Negative mg/dL mg/dL (Negative) Ur Blood (Man) Negative (Negative) Urine Nitrate Negative (Negative) Urine Bilirubin Negative (Negative) Urine Urobilinogen Negative mg/dL mg/dL (<2.0) Leukocyte Esterase Rfl Negative GAYLA/UL GAYLA/UL (Negative) Urine RBC 0-2 /hpf /hpf (0-2) Urine WBC 0-3 /hpf /hpf Ur Squamous Epith Cells Rare /hpf /hpf (Few) Urine Mucus Rare /lpf /lpf Blood Type Antibody Screen 11/29/21 11/29/21 11/29/21 05:16 05:16 05:16 WBC 13.6 K/mm3 H K/mm3 (4.5-10.0) RBC 4.08 M/mm3 L M/mm3 (4.2-5.4) Hgb 12.9 g/dL g/dL (12.0-15.0) Hct 39.8 % % (37.0-47.0) MCV 97.5 fl fl (80-100) MCH 31.6 pg pg (26-34) MCHC 32.4 g/dl g/dl (32-36) RDW 13.2 % % (11.5-14.5) Plt Count 264 k/mm3 k/mm3 (150-375) MPV 10.3 fl fl (7.4-10.4) Sodium 131 mmol/L L mmol/L (137-145) Potassium 3.9 mmol/L mmol/L (3.4-5.0) Chloride 102 mmol/L mmol/L (98-107) Carbon Dioxide 24 mmol/L mmol/L (22-30) Anion Gap 5 mmol/L L mmol/L (8-16) BUN 10 mg/dL mg/dL (7-17) Creatinine 0.80 m
--- NOTE | 2021-11-29 15:05 | PM.IMPN ---
Progress Note: A&P Assessment and Plan (1) Closed intertrochanteric fracture of right hip: Qualifiers: Encounter type: initial encounter Fracture alignment: displaced Qualified Code(s): S72.141A - Displaced intertrochanteric fracture of right femur, initial encounter for closed fracture Code(s): S72.141A - Displaced intertrochanteric fracture of right femur, initial encounter for closed fracture Status: Acute Assessment and Plan: Patient had fallen at home and found to have a right comminuted intertrochanteric proximal femur fracture. Dr. Curiel saw the patient and would like to do surgery tomorrow morning Cardiology evaluated the patient states she is at moderate risk and went over the risks and benefits of surgery at this time Continue with IV pain medications and bed rest until after surgery Continue monitoring. Appreciate Orthopedic surgery consultation. (2) Fall: Code(s): W19.XXXA - Unspecified fall, initial encounter Status: Acute Assessment and Plan: See above (3) Left bundle branch block: Code(s): I44.7 - Left bundle-branch block, unspecified Status: Acute Assessment and Plan: Patient sustained a hip fracture today after suffering from a fall while out in her garage. Unfortunately the patient could not give further information as to how she fell and further work up is to be done to rule out Cardiac Dysrhythmia which could have caused LOC and Fall. EKG shows a left bundle branch block and I have no EKG tracings for comparison since 2004 at which time that was not evident. Echocardiogram showed moderately reduced EF 40-45%, mild LV chamber enlargement, diastolic grade 1 dysfunction. Carotid Doppler showed less than 50% stenosis bilaterally CT head showed no evidence of acute infarction, mild chronic small-vessel ischemic disease and cerebral atrophy. Cardiology evaluated the patient and said she is at moderate risk for surgery at this time. He would like to perform a Lexiscan stress test on Wednesday for further workup and evaluation. Will continue monitoring on telemetry. Appreciate cardiology's input. Continue monitoring. (4) Murmur: Code(s): R01.1 - Cardiac murmur, unspecified Status: Acute Assessment and Plan: Echo showed mild , mild MR, trace TR. (5) Essential hypertension: Code(s): I10 - Essential (primary) hypertension Status: Acute Assessment and Plan: Blood pressure elevated 177/86 this morning. Most likely secondary to pain. She was given her home amlodipine, lisinopril and the newspaper publisher started her on metoprolol tartrate. Continue monitoring make adjustments if needed. (6) Tobacco abuse: Code(s): Z72.0 - Tobacco use Status: Acute Assessment and Plan: Patient denies nicotine patch at this time. Time Spent With Patient Time with patient: 25 - 35 minutes Subjective Date/time seen: 11/29/21 15:05 Interval history: Date of service 11/29/2021: Patient is pleasantly confused at this time. She thinks she is at home and forgetting about her hip fracture. Currently she denies any pain and states she needs to get up to do some errands. She states she has a chronic cough which is unchanged because she is a smoker. She denies needing a nicotine patch at this time. Denies any shortness of breath, wheezing, chest pain, fever, chills, nausea, vomiting, abdominal pain, leg swelling, calf pain, or any other symptoms at this time. Review of Systems Review of Systems: ROS unobtainable: Yes unobtainable due to mental status (Slightly confused and a poor historian due to this) Exam Narrative: General
[2021-11-29] MEDS: ENOXAPARIN 40 MG/0.4 ML SYRINGE SUB-Q (17:03)
--- NOTE | 2021-11-29 22:36 | ECHO_ITS ---
Patient Info Name: Rachael Thompson Age: 76 years : 1945 Gender: Female Ht: 61 in Wt: 114 lbs BSA: 1.50 m2 HR: 77 bpm BP: 148 / 49 mmHg Technical Quality: Good Exam Date: 11/29/2021 7:12 AM Exam Location: [facility] Patient Status: Inpatient Admit Date: 11/28/2021 Staff Ordering Physician: Cassie Garza PA-C Feller Machine Operator: Briana العراقي RDCS Attending Provider: Yenni Jesus PA-C Referring Physician: Kayla CALLOWAY; Exam Type: CA echo doppler color flow Study Info Indications R01.1 - Cardiac murmur, unspecified Complete two-dimensional, color flow and Doppler transthoracic echocardiogram is performed. Summary 1. Complete two-dimensional, color flow and Doppler transthoracic echocardiogram is performed. 2. Left ventricular chamber dimension is mildly enlarged. 3. Left ventricular systolic function is moderately reduced, estimated at 40-45%. 4. Left ventricular septal wall motion is abnormal with septal motion related to bundle branch block. 5. The left ventricular diastolic function is grade I diastolic dysfunction. 6. E/e' 10 is mildly elevated. 7. Left atrial chamber dimension is mildly enlarged. 8. There is mild aortic valve sclerosis. 9. There is mild aortic valve stenosis based on a peak velocity of 214 cm/s, mean gradient of 6 mmHg, and aortic valve area of 1.6 cm2. 10. There is mild mitral valve regurgitation. 11. There is trace tricuspid valve regurgitation. 12. No pulmonary hypertension, estimated pulmonary arterial systolic pressure is 31 mmHg. Left Ventricle E/e' 10 is mildly elevated. Left ventricular chamber dimension is mildly enlarged. Left ventricular systolic function is moderately reduced, estimated at 40-45%. Left ventricular septal wall motion is abnormal with septal motion related to bundle branch block. The left ventricular diastolic function is grade I diastolic dysfunction. Right Ventricle Right ventricular systolic function is normal and with normal TAPSE 2.2 cm. Right ventricular chamber dimension is normal. Left Atria Left atrial chamber dimension is mildly enlarged. Right Atria Right atrial chamber dimension is normal. Aortic Valve The aortic valve is not well visualized. Probably trileaflet aortic valve. There is mild aortic valve stenosis based on a peak velocity of 214 cm/s, mean gradient of 6 mmHg, and aortic valve area of 1.6 cm2. There is mild aortic valve sclerosis. There is no aortic valve regurgitation. Pulmonic Valve There is no pulmonic regurgitation. Mitral Valve There is no mitral valve stenosis. There is mild mitral valve regurgitation. Tricuspid Valve There is trace tricuspid valve regurgitation. No pulmonary hypertension, estimated pulmonary arterial systolic pressure is 31 mmHg. Pericardium/Pleural There is no pericardial effusion. Inferior Vena Cava Normal inferior vena cava with >50% collapse upon inspiration consistent with normal right atrial pressure, 5 mmHg. Aorta The aortic root size at the sinus of Valsalva is normal. Left Ventricular Outflow Tract Name Value Normal LVOT 2D LVOT Diameter 1.8 cm LVOT Doppler
--- NOTE | 2021-11-29 22:37 | PC.NURSE ---
Have been speaking with Cassie pt has been refusing care. Name calling. Attempting to get out of bed. Claiming she is at home and we placed a screen up to try and make her think she is at the hospital. I have been unable to keep telemetry on pt. Been unable to give pt her medication. She has been attempting to get out bed. Pulling on phillips. Throwing things across the room.
--- NOTE | 2021-11-29 23:45 | PC.NURSE ---
Pt has removed telemetry again right after she had let nurse reapply it.
[2021-11-30] VITALS (20 sets, daily range): BP systolic 126–159; BP diastolic 72–83; PULSE 77–105; RESP 10–18; TEMP 36.1–37.1; O2SAT 90–98
--- NOTE | 2021-11-30 00:43 | PC.NURSE ---
Spoke with patient tried to ask if she needed anything for pain. She responded that what she wanted was for me to bring her bedroom set back. Told her I did not have her furniture. She responded Sure you don't.
[2021-11-30] MEDS: LACTATED RINGERS 1,000 ML 50 ML IV CONT (02:32)
[2021-11-30] MEDS: HYDROmorphone HCL INJ (*CRX) 1 MG/ML SYR 0.5 MG IV PUSH (02:32)
[2021-11-30 05:47] LABS: Hematocrit 43.2 % (37.0-47.0); Hemoglobin 14.4 g/dL (12.0-15.0); Mean Corpuscular HGB Conc 33.3 g/dl (32-36); Mean Corpuscular Hemoglobin 31.6 pg (26-34); Mean Corpuscular Volume 94.7 fl (80-100); Mean Platelet Volume 10.1 fl (7.4-10.4); Platelet Count Result 247 k/mm3 (150-375); Red Blood Count 4.56 M/mm3 (4.2-5.4); Red Cell Distribution Width 12.8 % (11.5-14.5); White Blood Count 14.8 K/mm3 (4.5-10.0)
--- NOTE | 2021-11-30 07:40 | WPDANESEFPP ---
Anes - Eval Final PreProcedure Day of Procedure 11/30/21 07:40 Patient weight: normal Heart: regular rate and rhythm Lungs: decreased breath sounds Airway: Mallampati scale class II Neurological: alert and oriented Last oral intake: >/= 8 hours ASA classification: III Emergent: no Anesthetic plan: proceed Anesthesia type and monitoring: general ETT and standard monitoring Results Review: All pre-operative results and documents have been reviewed as part of the pre-operative evaluation. Informed Consent: The patient's anesthetic plan and its attendant risks and benefits were discussed with the patient/family/POA. Questions were solicited and answers provided to the satisfaction of the patient/family/POA.
[2021-11-30] MEDS: LACTATED RINGERS 1,000 ML 30 ML IV CONT (07:50)
--- NOTE | 2021-11-30 08:05 | PC.NURSE ---
To OR per bed, IV intact. Report given by night RN.
--- NOTE | 2021-11-30 08:26 | PM.PNCARD ---
Progress Note: A&P Assessment and Plan (1) Preop cardiovascular exam: Code(s): Z01.810 - Encounter for preprocedural cardiovascular examination Status: Acute Assessment and Plan: Risk profile: Asymptomatic from cardiac standpoint, Moderate systolic dysfunction, PAT, PAD, Hypertension, Dyslipidemia, Smoking. Functional status: Poor <4 METs due to arthritis and possibly JANE. Surgery: Orthopedic which is moderate cardiac risk. Overall risk stratification: She is at at least moderately high cardiac risk for noncardiac surgery given the above. Unfortunately, it Wednesday and we do not perform stress testing on weekends. Discuss with patient about this and that we have to weigh the risks/benefits of surgery. She will need to discuss with ortho further about it. She is having surgery right now. Check postop EKG. (2) PAT (paroxysmal atrial tachycardia): Code(s): I47.1 - Supraventricular tachycardia Status: Acute Assessment and Plan: TSH is OK. Mag level is OK. Started Metoprolol Tartate 50 mg PO BID to suppress PAC's and PAT. (3) Left bundle branch block: Code(s): I44.7 - Left bundle-branch block, unspecified Status: Acute (4) Peripheral vascular disease: Code(s): I73.9 - Peripheral vascular disease, unspecified Status: Acute Assessment and Plan: She is on Cilostazol. (5) Tobacco abuse: Code(s): Z72.0 - Tobacco use Status: Acute Assessment and Plan: Counseled regarding smoking cessation. (6) Mixed hyperlipidemia: Code(s): E78.2 - Mixed hyperlipidemia Status: Acute Assessment and Plan: On Rosuvastatin. (7) Essential hypertension: Code(s): I10 - Essential (primary) hypertension Status: Acute Assessment and Plan: Mildly high. Monitor as starting Metoprolol. (8) Systolic dysfunction: Code(s): I51.9 - Heart disease, unspecified Status: Acute Assessment and Plan: Echo on 11/29/20 EF 40-45%, mild LVE, grade I diastolic dysfunction (E/e' 10), mild LAE, mild (JAYMIE 1.6 cm2), mild MR, trace TR. Will need lexiscan stress test on Wednesday or Wednesday to assess for ischemia. Subjective Date/time seen: 11/30/21 08:26 Patient was off floor to OR for hip fracture surgery, and was not seen today. Telemetry reviewed, she had one episode of PAT at 126 bpm. Exam Narrative: Patient not seen today as she is in OR. Objective Data Vital Signs Vital Signs: Vital Signs - 24 hr 11/29/21 09:18 11/29/21 12:00 11/29/21 14:00 Temperature 97.6 F Pulse Rate 97 76 83 Respiratory Rate 22 H Blood Pressure 149/84 H Pulse Oximetry 92 11/29/21 16:00 11/29/21 20:00 11/29/21 21:11 Temperature 98.1 F Pulse Rate 84 84 89 Respiratory Rate 16 Blood Pressure 154/78 H Pulse Oximetry 93 11/29/21 23:02 11/30/21 00:00 11/30/21 04:33 Temperature Pulse Rate 88 88 82 Respiratory Rate Blood Pressure Pulse Oximetry 11/30/21 05:32 Temperature 98.7 F Pulse Rate 88 Respiratory Rate 16 Blood Pressure 159/76 H Pulse Oximetry 94 Intake/Output Intake/Output: Intake & Output 11/27/21 11/28/21 11/29/21 11/30/21 23:59 23:59 23:59 23:59 Intake Total 2300 1150 Output Total 4425 700 Balance -2125 450 Meds/Results Medications: Active Medications Generic Name Dose Route Start Last Admin Trade Name Freq PRN Reason Stop Dose Admin Albuterol 2 puff 11/29/21 15:06 Albuterol Sulfate (*Sp) Aerosol 1 Puff INHALATION QIDRT PRN Shortness Of Breath/wheezing Amlodipine Besylate 2.5 mg 11/28/21 23:10 11/29/21 23:03 Amlodipine Besylate 2.5 Mg Tablet BY MOUTH 2.5 mg HS IGNACIO Administration Fentanyl Citrate 25 mcg 11/30/21 07:41 Fentanyl Citrate Inj (*Crx) 100 Mcg/2 Ml Vial IV PUSH Q2M PRN Pain Hydromorphone HCl 0.5 mg 11/28/21 15:39 11/30/21 02:32 Hydromorphone Hcl Inj (*Crx) 1 Mg/Ml Syr IV PUSH 0.5 mg Q4H PRN Admi
[2021-11-30] MEDS: ceFAZolin SODIUM 1 GM VIAL IV PUSH ×2 (08:30→08:31)
[2021-11-30] MEDS: TRANEXAMIC ACID 1,000 MG/10 ML AMPUL 1000 MG IV PUSH (08:36)
--- NOTE | 2021-11-30 09:04 | PM.IMPN ---
Progress Note: A&P Assessment and Plan (1) Closed intertrochanteric fracture of right hip: Qualifiers: Encounter type: initial encounter Fracture alignment: displaced Qualified Code(s): S72.141A - Displaced intertrochanteric fracture of right femur, initial encounter for closed fracture Code(s): S72.141A - Displaced intertrochanteric fracture of right femur, initial encounter for closed fracture Status: Acute Assessment and Plan: Patient had fallen at home and found to have a right comminuted intertrochanteric proximal femur fracture. Dr. Curiel saw the patient and is going to take her to surgery today Cardiology evaluated the patient states she is at moderate risk and went over the risks and benefits of surgery at this time Continue with IV pain medications and bed rest until after surgery Continue monitoring. Appreciate Orthopedic surgery consultation. (2) Fall: Code(s): W19.XXXA - Unspecified fall, initial encounter Status: Acute Assessment and Plan: See above (3) Left bundle branch block: Code(s): I44.7 - Left bundle-branch block, unspecified Status: Acute Assessment and Plan: Patient sustained a hip fracture today after suffering from a fall while out in her garage. Unfortunately the patient could not give further information as to how she fell and further work up is to be done to rule out Cardiac Dysrhythmia which could have caused LOC and Fall. EKG shows a left bundle branch block and I have no EKG tracings for comparison since 2004 at which time that was not evident. Echocardiogram showed moderately reduced EF 40-45%, mild LV chamber enlargement, diastolic grade 1 dysfunction. Carotid Doppler showed less than 50% stenosis bilaterally CT head showed no evidence of acute infarction, mild chronic small-vessel ischemic disease and cerebral atrophy. Cardiology evaluated the patient and said she is at moderate risk for surgery at this time. He would like to perform a Lexiscan stress test on Wednesday for further workup and evaluation. Will continue monitoring on telemetry. Appreciate cardiology's input. Continue monitoring. (4) Murmur: Code(s): R01.1 - Cardiac murmur, unspecified Status: Acute Assessment and Plan: Echo showed mild , mild MR, trace TR. (5) Essential hypertension: Code(s): I10 - Essential (primary) hypertension Status: Acute Assessment and Plan: Blood pressure elevated 159/76 this morning. Most likely secondary to pain and anxiety from confusion. She was given her home amlodipine, lisinopril and the extender started her on metoprolol tartrate. Continue monitoring make adjustments if needed. (6) Tobacco abuse: Code(s): Z72.0 - Tobacco use Status: Acute Assessment and Plan: Patient denies nicotine patch at this time. Additional Plan Time Spent With Patient Time with patient: 25 - 35 minutes Subjective Date/time seen: 11/30/21 09:04 Interval history: Date of service 11/30/2021: Patient is confused at this time. She thinks she is at home, but knows she is having hip surgery today, but trying to get out of bed. She states she has a chronic cough which is unchanged because she is a smoker. She denies needing a nicotine patch at this time. Denies any shortness of breath, wheezing, chest pain, fever, chills, nausea, vomiting, abdominal pain, leg swelling, calf pain, or any other symptoms at this time. Review of Systems Review of Systems: ROS unobtainable: Yes unobtainable due to mental status (Slightly confused and a poor historian due to this) Exam Narrative: General: 76-year-old wotracy
--- NOTE | 2021-11-30 09:17 | P.OP_ITS ---
Procedure Note - Detailed Date of Procedure 11/30/21 Pre-op Diagnosis RIGHT INTERTROCHANTERIC FEMUR FRACTURE Post-op Diagnosis same Procedure Performed INSERTION GAMMA [place] RIGHT HIP Surgeon Bobby Curiel MD Anesthesia general Description of Procedure THE PATIENT WAS TAKEN TO THE OPERATING ROOM AND PLACED ON A FRACTURE TABLE AFTER GIVEN GENERAL ANESTHESIA. THE RIGHT LOWER EXTREMITY WAS PLACED IN A TRACTION BOOT AND USING SOME TRACTION AND INTERNAL ROTATION THE INTERTROCHANTERIC FRACTURE WAS REDUCED TO ANATOMIC POSITION. NEXT THE LEFT LOWER EXTREMITY WAS PREPPED AND DRAPED IN THE STERILE FASHION. AN INCISION WAS MADE PROXIMAL TO THE TIP OF THE GREATER TROCHANTER AND DISSECTION CONTINUED TILL THE TIP OF THE GREATER TROCHANTER WAS PALPATED. A GUIDE PIN WAS PLACED DOWN THE FEMORAL CANAL AND PAST THE FRACTURE SITE. THIS WAS CHECKED ON FLUOROSCOPY AND FOUND TO BE IN GOOD POSITION. AN INITIAL REAMER WAS USED TO REAM THE FEMORAL CANAL. AN 11 BY 200 MM ARTHREX ALEXIS [place] WAS INSERTED TILL THE CORRECT POSITION WAS IDENTIFIED ON XRAY. A GUIDE PIN WAS INSERTED THROUGH THE FEMORAL NECK AT [address] TILL IT REACHED THE TIP OF THE SUB CHONDRAL BONE SEEN ON XRAY. AFTER REAMING, LAG SCREW WAS INSERTED MEASURING 90 MM. XRAYS SHOWED IT TO BE IN GOOD POSITION. THE LAG SCREW WAS LOCKED PROXIMALLY. NEXT A DISTAL LOCKING SCREW WAS PLACED ACROSS THE [place] AND WAS IN GOOD POSITION ON XRAY. THE TRACTION WAS RELEASED. THE WOUNDS WERE WASHED. THE DEEP FASCIA WAS REPAIRED WITH 0 VICRYL SUTURE, THE S UB CUTANEOUS LAYER WITH 2-0 VICRYL, AND THE SKIN WITH FRANC. THE WOUNDS WERE WASHED AND THEN STERILE DRESSING WAS APPLIED. PATIENT WAS EXTUBATED AND SENT TO RECOVERY ROOM. Estimated Blood Loss 100 Urine Output 800 Complications No immediate complications Condition stable Disposition PACU
[2021-11-30 11:15] LABS: Anion Gap 7 mmol/L (8-16); Blood Urea Nitrogen 9 mg/dL (7-17); Calcium 9.3 mg/dL (8.4-10.2); Carbon Dioxide 25 mmol/L (22-30); Chloride 98 mmol/L (98-107); Estimated CRCL calculation 43 ml/min; Estimated Glomerular Filt Rate > 60; Glucose 127 mg/dL (65-110); Potassium 3.6 mmol/L (3.4-5.0); Sodium 130 mmol/L (137-145)
[2021-11-30] MEDS: HYDROcodone/acetaminophen (*CRX) 7.5-325 MG TABLET 1 TAB PO ×2 (11:50→21:06)
[2021-11-30] MEDS: METOPROLOL TARTRATE 50 MG TAB PO ×2 (11:50→21:08)
[2021-11-30] MEDS: ROSUVASTATIN 5 MG TABLET BY MOUTH (11:50)
[2021-11-30] MEDS: lisinopriL 20 MG TABLET PO (11:50)
[2021-11-30] MEDS: ceFAZolin 2 GM/D5W 50 ML 2 GM/50 ML BAG IVPB ×2 (14:39→21:09)
[2021-11-30] MEDS: ONDANSETRON INJ 4 MG/2 ML VIAL IV PUSH (15:26)
[2021-11-30] MEDS: SENNA/DOCUSATE SODIUM TABLET 2 TAB PO (17:58)
[2021-11-30] MEDS: HEPARIN SODIUM 5,000 UNITS/ML VIAL 5000 UNITS SUB-Q (21:06)
[2021-11-30] MEDS: amLODIPine BESYLATE 2.5 MG TABLET BY MOUTH (21:07)
[2021-11-30] MEDS: FAMOTIDINE 20 MG TABLET PO (21:08)
[2021-11-30] MEDS: diazePAM (*CRX) 5 MG TABLET PO (21:10)
[2021-12-01] VITALS (13 sets, daily range): BP systolic 115–151; BP diastolic 55–64; PULSE 70–99; RESP 18; TEMP 36.1–36.8; O2SAT 95–98
[2021-12-01] MEDS: HYDROcodone/acetaminophen (*CRX) 7.5-325 MG TABLET 1 TAB PO ×2 (04:29→14:46)
[2021-12-01] MEDS: diazePAM (*CRX) 5 MG TABLET PO (05:40)
[2021-12-01] MEDS: ceFAZolin 2 GM/D5W 50 ML 2 GM/50 ML BAG IVPB (05:41)
[2021-12-01 06:23] LABS: Basophils Percent Auto 0.3 % (0.2-1.2); Eosinophils Percent Auto 0.1 % (0-4.4); Hemoglobin 12.3 g/dL (12.0-15.0); Immature Granulocyte Absolute 0.11 K/mm3 (0.00-0.031); Immature Granulocyte Percent A 0.8 % (0-0.5); Lymphocytes Absolute Auto 1.03 K/mm3 (0.9-3.2); Lymphocytes Percent Auto 7.5 % (18.3-44.2); Mean Corpuscular HGB Conc 33.2 g/dl (32-36); Mean Corpuscular Hemoglobin 31.1 pg (26-34); Mean Corpuscular Volume 93.7 fl (80-100); Mean Platelet Volume 9.9 fl (7.4-10.4); Monocytes Percent Auto 14.3 % (2.6-8.5); Neutrophils Absolute Auto 10.6 K/mm3 (1.3-6.7); Platelet Count Result 232 k/mm3 (150-375); Red Blood Count 3.95 M/mm3 (4.2-5.4); Red Cell Distribution Width 13.1 % (11.5-14.5); White Blood Count 13.8 K/mm3 (4.5-10.0)
[2021-12-01 06:37] LABS: Anion Gap 7 mmol/L (8-16); Blood Urea Nitrogen 14 mg/dL (7-17); Calcium 8.5 mg/dL (8.4-10.2); Carbon Dioxide 28 mmol/L (22-30); Chloride 97 mmol/L (98-107); Estimated CRCL calculation 34 ml/min; Estimated Glomerular Filt Rate > 60; Glucose 128 mg/dL (65-110); Potassium 3.7 mmol/L (3.4-5.0); Sodium 132 mmol/L (137-145)
--- NOTE | 2021-12-01 07:49 | PM.PNCARD ---
Progress Note: A&P Assessment and Plan (1) Preop cardiovascular exam: Code(s): Z01.810 - Encounter for preprocedural cardiovascular examination Status: Acute Assessment and Plan: Risk profile: Asymptomatic from cardiac standpoint, Moderate systolic dysfunction, PAT, PAD, Hypertension, Dyslipidemia, Smoking. Functional status: Poor <4 METs due to arthritis and possibly JANE. Surgery: Orthopedic which is moderate cardiac risk. Overall risk stratification: She is at at least moderately high cardiac risk for noncardiac surgery given the above. Unfortunately, it Wednesday and we do not perform stress testing on weekends. Discuss with patient about this and that we have to weigh the risks/benefits of surgery. She will need to discuss with ortho further about it. Check postop EKG. (2) PAT (paroxysmal atrial tachycardia): Code(s): I47.1 - Supraventricular tachycardia Status: Acute Assessment and Plan: TSH is OK. Mag level is OK. Started Metoprolol Tartate 50 mg PO BID to suppress PAC's and PAT. (3) Left bundle branch block: Code(s): I44.7 - Left bundle-branch block, unspecified Status: Acute (4) Peripheral vascular disease: Code(s): I73.9 - Peripheral vascular disease, unspecified Status: Acute Assessment and Plan: She is on Cilostazol. (5) Tobacco abuse: Code(s): Z72.0 - Tobacco use Status: Acute Assessment and Plan: Counseled regarding smoking cessation. (6) Mixed hyperlipidemia: Code(s): E78.2 - Mixed hyperlipidemia Status: Acute Assessment and Plan: On Rosuvastatin. (7) Essential hypertension: Code(s): I10 - Essential (primary) hypertension Status: Acute Assessment and Plan: Mildly high. Monitor as starting Metoprolol. (8) Systolic dysfunction: Code(s): I51.9 - Heart disease, unspecified Status: Acute Assessment and Plan: Echo on 11/29/20 EF 40-45%, mild LVE, grade I diastolic dysfunction (E/e' 10), mild LAE, mild (JAYMIE 1.6 cm2), mild MR, trace TR. Obtain lexiscan myoview stress test tomorrow. Subjective Date/time seen: 12/01/21 07:49 Denies chest pain or sob. Has right hip soreness. Telemetry without arrhythmias overnight. Exam Const: General: cooperative, healthy appearing and comfortable Resp: Auscultation: clear to auscultation bilaterally, no crackles, no rales, no rhonchi and no wheezes Cardio: Jugular venous distension: no JVD Rate: regular rate Rhythm: regular rhythm Heart sounds: no murmurs GI: GI Palp: No abdominal tenderness and Yes Soft to palpation Neuro: General: oriented to person, oriented to place and oriented to time Extrem: Right lower extremity: no edema Left lower extremity: no edema Objective Data Vital Signs Vital Signs: Vital Signs - 24 hr 11/30/21 07:50 11/30/21 09:25 11/30/21 09:40 Temperature 97.4 F L Pulse Rate 94 93 105 H Respiratory Rate 10 L 10 L Blood Pressure 133/78 137/83 Pulse Oximetry 94 97 11/30/21 09:55 11/30/21 10:10 11/30/21 11:00 Temperature 97.8 F Pulse Rate 97 91 94 Respiratory Rate 13 12 16 Blood Pressure 138/72 145/76 H 126/74 Pulse Oximetry 95 93 90 11/30/21 11:15 11/30/21 11:45 11/30/21 11:50 Temperature 98.4 F 98.6 F Pulse Rate 89 95 95 Respiratory Rate 16 16 Blood Pressure 146/77 H 132/81 Pulse Oximetry 93 96 11/30/21 12:00 11/30/21 12:45 11/30/21 15:41 Temperature 98.1 F 98.6 F Pulse Rate 96 101 H 95 Respiratory Rate 16 18 Blood Pressure 148/75 H 135/74 Pulse Oximetry 94 94 11/30/21 16:00 11/30/21 18:26 11/30/21 20:00 Temperature 97.5 F L Pulse Rate 77 87 95 Respiratory Rate 16 Blood Pressure 138/79 Pulse Oximetry 98 11/30/21 21:08 11/30/21 22:30 12/01/21 00:00 Temperature 97.0 F L Pulse Rate 95 88 71 Respiratory Rate 18 Blood Pressure 131/75 Pulse Oximetry 96 12/01/21 00:45 12/01/21 04:00 12/01/21 04:45 Temperature 97.0
[2021-12-01] MEDS: SENNA/DOCUSATE SODIUM TABLET 2 TAB PO ×2 (08:19→17:06)
[2021-12-01] MEDS: METOPROLOL TARTRATE 50 MG TAB PO ×2 (08:19→20:39)
[2021-12-01] MEDS: ACETAMINOPHEN 325 MG TABLET 650 MG PO (08:19)
[2021-12-01] MEDS: ROSUVASTATIN 5 MG TABLET BY MOUTH (08:19)
[2021-12-01] MEDS: CELECOXIB 200 MG CAPSULE PO (08:20)
[2021-12-01] MEDS: polyethylene glycoL 3350 17 GM POWD.PACK PO (08:20)
[2021-12-01] MEDS: FAMOTIDINE 20 MG TABLET PO ×2 (08:20→20:39)
[2021-12-01] MEDS: HEPARIN SODIUM 5,000 UNITS/ML VIAL 5000 UNITS SUB-Q ×2 (08:20→20:39)
[2021-12-01] MEDS: lisinopriL 20 MG TABLET PO (08:20)
--- NOTE | 2021-12-01 09:00 | PM.IMPN ---
Progress Note: A&P Assessment and Plan (1) Closed intertrochanteric fracture of right hip: Qualifiers: Encounter type: initial encounter Fracture alignment: displaced Qualified Code(s): S72.141A - Displaced intertrochanteric fracture of right femur, initial encounter for closed fracture Code(s): S72.141A - Displaced intertrochanteric fracture of right femur, initial encounter for closed fracture Status: Acute Assessment and Plan: Patient had fallen at home and found to have a right comminuted intertrochanteric proximal femur fracture. Dr. Curiel evaluated the patient and her to surgery on 11/30/2021 for an insertion of a gamma philippe to the right hip Cardiology evaluated the patient states she is at moderate risk and went over the risks and benefits of surgery Pain management, Discharge planning, Post-op care, DVT Prophylaxis per Dr. Curiel Continue monitoring. Appreciate Orthopedic surgery consultation. (2) Fall: Code(s): W19.XXXA - Unspecified fall, initial encounter Status: Acute Assessment and Plan: See above (3) Left bundle branch block: Code(s): I44.7 - Left bundle-branch block, unspecified Status: Acute Assessment and Plan: Patient sustained a hip fracture today after suffering from a fall while out in her garage. Unfortunately the patient could not give further information as to how she fell and further work up is to be done to rule out Cardiac Dysrhythmia which could have caused LOC and Fall. EKG shows a left bundle branch block and I have no EKG tracings for comparison since 2004 at which time that was not evident. Echocardiogram showed moderately reduced EF 40-45%, mild LV chamber enlargement, diastolic grade 1 dysfunction. Carotid Doppler showed less than 50% stenosis bilaterally CT head showed no evidence of acute infarction, mild chronic small-vessel ischemic disease and cerebral atrophy. Cardiology evaluated the patient and said she is at moderate risk for surgery at this time. Cardiology is checking a postop EKG and will consider further evaluation with a Lexiscan at some point. Will continue monitoring on telemetry until discontinued by Cardiology Appreciate cardiology's input. Continue monitoring. (4) Murmur: Code(s): R01.1 - Cardiac murmur, unspecified Status: Acute Assessment and Plan: Echo showed mild , mild MR, trace TR. (5) Essential hypertension: Code(s): I10 - Essential (primary) hypertension Status: Acute Assessment and Plan: Blood pressure normal at 115/57 this morning. She was given her home amlodipine, lisinopril and metoprolol tartrate. 12/01: Patient felt lightheaded when sitting up in the chair with therapy. Blood pressure was checked and was a 100 systolic. Blood pressure was checked when she had been laying in bed sitting up for a little while and it was 122 systolic. Patient states she is feeling better at this time but still mildly lightheaded. Continue monitoring blood pressure closely. I will hold her amlodipine at this time. Make further adjustments if needed. Continue monitoring make adjustments if needed. (6) Tobacco abuse: Code(s): Z72.0 - Tobacco use Status: Acute Assessment and Plan: Patient denies nicotine patch at this time. Additional Plan Time Spent With Patient Time with patient: 25 - 35 minutes Subjective Date/time seen: 12/01/21 09:00 Interval history: Date of service 12/01/2021: Patient states she is feeling dizzy and mildly nauseous at this time. She was feeling well prior to working with therapy. She had eaten some breakfast. After therapy she
--- NOTE | 2021-12-01 15:48 | PM.PNORT ---
Progress Note: A&P Additional Plan POD 1 DOING WELL. CONTINUE PT. SNF ONCE STABLE. Subjective Subjective Date/Time Seen: 12/01/21 15:48 POD 1 DOING WELL. PAIN CONTROLLED. NO CALF PAIN Exam Extrem: Other: VSS AFEBRILE DRESSING DRY [place] INTACT NEG HOMANS SIGN Objective Data Vital Signs Vital Signs: Vital Signs - 24 hr 11/30/21 16:00 11/30/21 18:26 11/30/21 20:00 Temperature 36.4 C L Pulse Rate 77 87 95 Respiratory Rate 16 Blood Pressure 138/79 Pulse Oximetry 98 11/30/21 21:08 11/30/21 22:30 12/01/21 00:00 Temperature 36.1 C L Pulse Rate 95 88 71 Respiratory Rate 18 Blood Pressure 131/75 Pulse Oximetry 96 12/01/21 00:45 12/01/21 04:00 12/01/21 04:45 Temperature 36.1 C L 36.4 C L Pulse Rate 70 93 94 Respiratory Rate 18 18 Blood Pressure 123/57 L 151/62 H Pulse Oximetry 96 97 12/01/21 08:00 12/01/21 08:19 12/01/21 10:00 Temperature 36.8 C Pulse Rate 99 94 82 Respiratory Rate 18 Blood Pressure 115/57 L Pulse Oximetry 96 12/01/21 12:00 12/01/21 13:56 Temperature 36.1 C L Pulse Rate 77 78 Respiratory Rate 18 Blood Pressure 131/57 L Pulse Oximetry 95 Intake/Output Intake/Output: Intake & Output 11/28/21 11/29/21 11/30/21 12/01/21 23:59 23:59 23:59 23:59 Intake Total 2300 1300 340 Output Total 4425 1850 500 Balance -2125 -550 -160 Meds/Results Medications: Active Medications Generic Name Dose Route Start Last Admin Trade Name Freq PRN Reason Stop Dose Admin Acetaminophen 650 mg 11/30/21 10:19 12/01/21 08:19 Acetaminophen 325 Mg Tablet PO 650 mg Q6H PRN Administration Mild Pain (1-3) or Fever Hydrocodone Bitart/Acetaminophen 1 tab 11/30/21 10:19 12/01/21 14:46 Hydrocodone/Acetaminophen (*Crx) 7.5-325 Mg Tablet PO 1 tab Q3H PRN Administration Pain Rated 4-6 Al Hydrox/Mg Hydrox/Simethicone 30 ml 11/30/21 10:19 Mag Hydrox/Al Hydrox/Simeth 30 Ml Udc PO Q6H PRN Indigestion Albuterol 2 puff 11/29/21 15:06 Albuterol Sulfate (*Sp) Aerosol 1 Puff INHALATION QIDRT PRN Shortness Of Breath/wheezing Amlodipine Besylate 2.5 mg 11/28/21 23:10 11/30/21 21:07 Amlodipine Besylate 2.5 Mg Tablet BY MOUTH 2.5 mg HS IGNACIO Administration Celecoxib 200 mg 12/01/21 08:00 12/01/21 08:20 Celecoxib 200 Mg Capsule PO 200 mg DAILY@0800 IGNACIO Administration Diazepam 5 mg 11/30/21 10:19 12/01/21 05:40 Diazepam (*Crx) 5 Mg Tablet PO 5 mg Q8H PRN Administration Muscle Spasm Famotidine 20 mg 11/30/21 21:00 12/01/21 08:20 Famotidine 20 Mg Tablet PO 20 mg Q12HR IGNACIO Administration Heparin Sodium (Porcine) 5,000 units 11/30/21 21:00 12/01/21 08:20 Heparin Sodium 5,000 Units/Ml Vial SUB-Q 5,000 units Q12HR IGNACIO Administration Hydroxyzine Pamoate 50 mg 11/30/21 10:19 Hydroxyzine Pamoate 25 Mg Capsule PO Q4H PRN Itching Lisinopril 20 mg 11/29/21 09:00 12/01/21 08:20 Lisinopril 20 Mg Tablet PO 20 mg DAILY IGNACIO Administration Magnesium Hydroxide 30 ml 11/30/21 10:19 Magnesium Hydroxide Susp 30 Ml Udc PO BID PRN Constipation Metoprolol Tartrate 50 mg 11/29/21 09:00 12/01/21 08:19 Metoprolol Tartrate 50 Mg Tab PO 50 mg Q12HR IGNACIO Administration Morphine Sulfate 3 mg 11/30/21 10:19 Morphine Sulfate (*Crx) 4 Mg/Ml Inj IV PUSH Q3H PRN Pain Rated 7-10 Naloxone HCl 0.1 mg 11/30/21 10:19 Naloxone Hcl 0.4 Mg/Ml Vial IV PUSH Q2M PRN Opiate Reversal Ondansetron HCl 4 mg 11/30/21 10:19 11/30/21 15:26 Ondansetron Inj 4 Mg/2 Ml Vial IV PUSH 4 mg Q4H PRN Administration Nausea And Vomiting Polyethylene Glycol 17 gm 12/01/21 09:00 12/01/21 08:20 Polyethylene Glycol 3350 17 Gm Powd.Pack PO 17 gm QAM IGNACIO Administration Rosuvastatin Calcium 5 mg 11/29/21 09:00 12/01/21 08:19 Rosuvastatin 5 Mg Tablet BY MOUTH 5 mg DAILY IGNACIO Administration Senna/Doc
--- NOTE | 2021-12-01 16:18 | ECG_ITS ---
Measurements Intervals [place] Rate: 87 P: 40 CT: 140 QRS: 19 QRSD: 136 T: 208 QT: 388 QTc: 468 Interpretive Statements SINUS RHYTHM ATRIAL PREMATURE COMPLEXES LEFT BUNDLE BRANCH BLOCK ABNORMAL ECG Electronically Signed On 12-01-2021 10:00:39 BROADCAST DESIGNER by Romain Price D.O.
[2021-12-02] VITALS (13 sets, daily range): BP systolic 120–158; BP diastolic 58–72; PULSE 84–116; RESP 14–20; TEMP 36.1–36.9; O2SAT 96–98
[2021-12-02] MEDS: diazePAM (*CRX) 5 MG TABLET PO (04:40)
[2021-12-02 05:46] LABS: Hematocrit 37.7 % (37.0-47.0); Hemoglobin 12.6 g/dL (12.0-15.0); Mean Corpuscular HGB Conc 33.4 g/dl (32-36); Mean Corpuscular Hemoglobin 31.2 pg (26-34); Mean Corpuscular Volume 93.3 fl (80-100); Mean Platelet Volume 10.1 fl (7.4-10.4); Platelet Count Result 295 k/mm3 (150-375); Red Blood Count 4.04 M/mm3 (4.2-5.4); Red Cell Distribution Width 12.9 % (11.5-14.5); White Blood Count 13.4 K/mm3 (4.5-10.0)
[2021-12-02 05:55] LABS: Anion Gap 9 mmol/L (8-16); Blood Urea Nitrogen 17 mg/dL (7-17); Calcium 8.9 mg/dL (8.4-10.2); Carbon Dioxide 28 mmol/L (22-30); Chloride 93 mmol/L (98-107); Estimated CRCL calculation 37 ml/min; Estimated Glomerular Filt Rate 54; Glucose 123 mg/dL (65-110); Potassium 3.6 mmol/L (3.4-5.0); Sodium 130 mmol/L (137-145)
--- NOTE | 2021-12-02 07:53 | PM.PNCARD ---
Progress Note: A&P Assessment and Plan (1) Preop cardiovascular exam: Code(s): Z01.810 - Encounter for preprocedural cardiovascular examination Status: Acute Assessment and Plan: Risk profile: Asymptomatic from cardiac standpoint, Moderate systolic dysfunction, PAT, PAD, Hypertension, Dyslipidemia, Smoking. Functional status: Poor <4 METs due to arthritis and possibly JANE. Surgery: Orthopedic which is moderate cardiac risk. Overall risk stratification: She is at at least moderately high cardiac risk for noncardiac surgery given the above. Unfortunately, it Wednesday and we do not perform stress testing on weekends. Discuss with patient about this and that we have to weigh the risks/benefits of surgery. She will need to discuss with ortho further about it. She is postop day 2. Postop EKG is unremarkable. (2) PAT (paroxysmal atrial tachycardia): Code(s): I47.1 - Supraventricular tachycardia Status: Acute Assessment and Plan: TSH is OK. Mag level is OK. Continues to have short runs of PAT, increase Metoprolol Tartate 100 mg PO BID to suppress PAC's and decrease PAT episodes. (3) Left bundle branch block: Code(s): I44.7 - Left bundle-branch block, unspecified Status: Acute (4) Peripheral vascular disease: Code(s): I73.9 - Peripheral vascular disease, unspecified Status: Acute Assessment and Plan: She is on Cilostazol. (5) Tobacco abuse: Code(s): Z72.0 - Tobacco use Status: Acute Assessment and Plan: Counseled regarding smoking cessation. (6) Mixed hyperlipidemia: Code(s): E78.2 - Mixed hyperlipidemia Status: Acute Assessment and Plan: On Rosuvastatin. (7) Essential hypertension: Code(s): I10 - Essential (primary) hypertension Status: Acute Assessment and Plan: Mildly high. Monitor as starting Metoprolol. (8) Systolic dysfunction: Code(s): I51.9 - Heart disease, unspecified Status: Acute Assessment and Plan: Echo on 11/29/20 EF 40-45%, mild LVE, grade I diastolic dysfunction (E/e' 10), mild LAE, mild (JAYMIE 1.6 cm2), mild MR, trace TR. Lexiscan myoview stress test today to complete workup for systolic dysfunction. Subjective Date/time seen: 12/02/21 07:53 Denies chest pain or sob. Telemetry shows she had a few PAT overnight up to 135 bpm. Exam Const: General: cooperative, healthy appearing and comfortable Resp: Auscultation: clear to auscultation bilaterally, no crackles, no rales, no rhonchi and no wheezes Cardio: Jugular venous distension: no JVD Rate: regular rate Rhythm: regular rhythm Heart sounds: no murmurs GI: GI Palp: No abdominal tenderness and Yes Soft to palpation Neuro: General: oriented to person, oriented to place and oriented to time Extrem: Right lower extremity: no edema Left lower extremity: no edema Objective Data Vital Signs Vital Signs: Vital Signs - 24 hr 12/01/21 08:00 12/01/21 08:19 12/01/21 10:00 Temperature 98.3 F Pulse Rate 99 94 82 Respiratory Rate 18 Blood Pressure 115/57 L Pulse Oximetry 96 12/01/21 12:00 12/01/21 13:56 12/01/21 16:00 Temperature 97 F L Pulse Rate 77 78 82 Respiratory Rate 18 Blood Pressure 131/57 L Pulse Oximetry 95 12/01/21 17:27 12/01/21 20:00 12/01/21 20:39 Temperature 97.8 F 97.6 F Pulse Rate 73 85 78 Respiratory Rate 18 18 Blood Pressure 132/64 133/55 L Pulse Oximetry 98 96 12/02/21 00:00 12/02/21 01:33 12/02/21 04:00 Temperature 98.0 F Pulse Rate 90 87 108 H Respiratory Rate 20 Blood Pressure 148/63 H Pulse Oximetry 98 12/02/21 05:30 Temperature 97.8 F Pulse Rate 107 H Respiratory Rate 20 Blood Pressure 158/72 H Pulse Oximetry 98 Intake/Output Intake/Output: Intake & Output 11/29/21 11/30/21 12/01/21 12/02/21 23:59 23:59 23:59 23:59 Intake Total 2300 1300 590 180 Output Total 4446 6290 650 500 Balance -2125 -550 -60 -320
--- NOTE | 2021-12-02 08:00 | EST_ITS ---
Patient Info Name: Rachael Thompson Age: 76 years : 1945 Gender: Female Ht: 61 in Wt: 153 lbs BSA: 1.75 m2 HR: 82 bpm BP: 189 / 101 mmHg Heart Rhythm: Sinus Rhythm Exam Date: 12/02/2021 11:14 AM Exam Location: [facility] Stress Patient Status: Inpatient Admit Date: 11/28/2021 Staff Ordering Physician: Romain Price DO Attending Provider: Rimma Garcia PA-C Exercise Technologist: Germaine Reddy CT Exercise Physician: Romain Price DO Exam Type: CA stress ayden w NM Study Info Indications I50.20 - Unspecified systolic (congestive) heart failure R55 - Syncope and collapse A regadenoson stress test was performed. Summary 1. 1. Inconclusive lexiscan stress test for ischemic ST changes by ECG criteria due to baseline LBBB. 2. 2. Baseline hypertension. 3. 3. Nuclear scan to follow and will be reported separately. Please correlate with it. 4. 4. Patient informed of the above results. Protocol: Lexiscan Stress ECG Details Stage: REST Duration (min): 1 min : 53 sec HR (bpm): 81 SBP (mmHg): 189 DBP (mmHg): 101 Stage: REST Duration (min): 8 min : 9 sec HR (bpm): 78 SBP (mmHg): 189 DBP (mmHg): 101 Stage: STAGE 1 Duration (min): 1 min : 0 sec HR (bpm): 99 SBP (mmHg): 189 DBP (mmHg): 101 Stage: RECOVERY Duration (min): 1 min : 0 sec HR (bpm): 102 SBP (mmHg): 177 DBP (mmHg): 72 Stage: RECOVERY Duration (min): 2 min : 0 sec HR (bpm): 103 SBP (mmHg): 177 DBP (mmHg): 72 Stage: RECOVERY Duration (min): 3 min : 0 sec HR (bpm): 101 SBP (mmHg): 178 DBP (mmHg): 75 Stage: RECOVERY Duration (min): 3 min : 8 sec HR (bpm): 101 SBP (mmHg): 178 DBP (mmHg): 75 Rest HR: 78 bpm Peak HR: 103 bpm Rest Sys BP: 189 mmHg Peak Sys BP: 178 mmHg Max Pred HR: 142 bpm % Max Pred HR: 73 % Target HR: 121 bpm Max RPP: 18,334 bpm*mmHg Termination Reason: Completed protocol Cardiac Symptoms: Shortness of breath Total Time: 1 min : 0 sec Rest Mendoza BP: 101 mmHg Peak Mendoza BP: 75 mmHg Total Dose: 0.4 mg Resting ECG Sinus rhythm, LBBB. Stress ECG No ST changes. Arrhythmias None. Report Signatures
[2021-12-02] MEDS: CELECOXIB 200 MG CAPSULE PO (09:05)
[2021-12-02] MEDS: SENNA/DOCUSATE SODIUM TABLET 2 TAB PO ×2 (09:05→17:28)
[2021-12-02] MEDS: HEPARIN SODIUM 5,000 UNITS/ML VIAL 5000 UNITS SUB-Q ×2 (09:05→20:48)
[2021-12-02] MEDS: FAMOTIDINE 20 MG TABLET PO ×2 (09:05→20:48)
[2021-12-02] MEDS: lisinopriL 20 MG TABLET PO (09:06)
[2021-12-02] MEDS: polyethylene glycoL 3350 17 GM POWD.PACK PO (09:06)
[2021-12-02] MEDS: METOPROLOL TARTRATE 50 MG TAB 100 MG PO ×2 (09:06→20:48)
[2021-12-02] MEDS: ROSUVASTATIN 5 MG TABLET BY MOUTH (09:06)
--- NOTE | 2021-12-02 10:00 | PM.PNORT ---
Progress Note: A&P Assessment and Plan (1) Closed intertrochanteric fracture of right hip: Qualifiers: Encounter type: initial encounter Fracture alignment: displaced Qualified Code(s): S72.141A - Displaced intertrochanteric fracture of right femur, initial encounter for closed fracture Code(s): S72.141A - Displaced intertrochanteric fracture of right femur, initial encounter for closed fracture Status: Acute Assessment and Plan: POD #2: Right Hip Gamma Jay Continue PT/OT. WBAT. Walker. HIGH FALL RISK. Continue pain control. Ice lateral hip. SCDs. Incentive Spirometry. DVT prophylaxis x4 weeks. Change dressing daily with island dressing. Jen to be removed on POD #14. Dispo: Home with Home Health when medically cleared. Time Spent With Patient Time with patient: less than 15 minutes Subjective Subjective Date/Time Seen: 12/02/21 10:00 Post Op day: 2 Principal diagnosis: Right Hip Fracture Interval history: POD #2: Right Hip Gamma Jay No new complaints. Pain well controlled. Review of Systems Constitutional: Constitutional: Reports as per HPI, Denies fatigue, Denies fever(s) and Denies weakness Cardiovascular: Cardiovascular: Denies chest pain Respiratory: Respiratory: Denies cough and Denies dyspnea Gastrointestinal: Gastrointestinal: Denies abdominal pain Genitourinary: Genitourinary: Reports no additional female genitourinary complaints Musculoskeletal: Musculoskeletal: Reports as per HPI Exam Const: General: comfortable and no acute distress Resp: Effort & Inspection: normal respiratory effort GI: Inspection: non-distended GI Palp: Yes Soft to palpation and No Tenderness to palpation present (GI) Skin: Wounds: wounds noted (Incision right hip c/d/i ) Neuro: Cognition (Neuro): normal cognition Extrem: Right lower extremity: hip/thigh Details: tenderness Location: of the hip Location: laterally, swelling Location: at the hip and abnormal ROM (limited but improving ); no ecchymosis, knee Details: normal to inspection; no tenderness and no swelling, lower leg (Negative Timmy's Sign ), ankle (+ankle dorsiflexion/plantarflexion ) and foot (2+ pedal pulses ) Details: normal capillary refill and vascular exam Details: dorsalis pedis pulse present Objective Data Vital Signs Vital Signs: Vital Signs - 24 hr 12/01/21 12:00 12/01/21 13:56 12/01/21 16:00 Temperature 36.1 C L Pulse Rate 77 78 82 Respiratory Rate 18 Blood Pressure 131/57 L Pulse Oximetry 95 12/01/21 17:27 12/01/21 20:00 12/01/21 20:39 Temperature 36.6 C 36.4 C Pulse Rate 73 85 78 Respiratory Rate 18 18 Blood Pressure 132/64 133/55 L Pulse Oximetry 98 96 12/02/21 00:00 12/02/21 01:33 12/02/21 04:00 Temperature 36.7 C Pulse Rate 90 87 108 H Respiratory Rate 20 Blood Pressure 148/63 H Pulse Oximetry 98 12/02/21 05:30 12/02/21 09:06 Temperature 36.6 C Pulse Rate 107 H 106 H Respiratory Rate 20 Blood Pressure 158/72 H Pulse Oximetry 98 Intake/Output Intake/Output: Intake & Output 11/29/21 11/30/21 12/01/21 12/02/21 23:59 23:59 23:59 23:59 Intake Total 2300 1300 590 180 Output Total 4450 1850 650 500 Balance -2125 -550 -60 -320 Meds/Results Medications: Active Medications Generic Name Dose Route Start Last Admin Trade Name Freq PRN Reason Stop Dose Admin Acetaminophen 650 mg 11/30/21 10:19 12/01/21 08:19 Acetaminophen 325 Mg Tablet PO 650 mg Q6H PRN Administration Mild Pain (1-3) or Fever Hydrocodone Bitart/Acetaminophen 1 tab 11/30/21 10:19 12/01/21 14:46 Hydrocodone/Acetaminophen (*Crx) 7.5-325 Mg Tablet PO 1 tab Q3H PRN Administration Pain Rated 4-6 Al Hydrox/Mg Hydrox/Simethicone 30 ml 11/30/21 10:19 Mag Hydrox/Al Hydrox/Simeth 30 Ml Udc PO Q6H PRN Indigestion Albuterol 2 puff 11/29/21 15:06 Albuterol Sulfate (*Sp) Aerosol 1 Puff INHALATION QIDRT PRN Shortness Of Br
--- NOTE | 2021-12-02 10:54 | PCOTNOTE ---
Patient unavailable to see for OT this AM, in stress test. Will attempt again later.
[2021-12-02] MEDS: HYDROcodone/acetaminophen (*CRX) 7.5-325 MG TABLET 1 TAB PO (11:27)
--- NOTE | 2021-12-02 15:10 | PM.IMPN ---
Progress Note: A&P Assessment and Plan (1) Closed intertrochanteric fracture of right hip: Qualifiers: Encounter type: initial encounter Fracture alignment: displaced Qualified Code(s): S72.141A - Displaced intertrochanteric fracture of right femur, initial encounter for closed fracture Code(s): S72.141A - Displaced intertrochanteric fracture of right femur, initial encounter for closed fracture Status: Acute Assessment and Plan: Patient had fallen at home and found to have a right comminuted intertrochanteric proximal femur fracture. Dr. Curiel evaluated the patient and her to surgery on 11/30/2021 for an insertion of a gamma jay to the right hip Cardiology evaluated the patient states she is at moderate risk and went over the risks and benefits of surgery Pain management, Discharge planning, Post-op care, DVT Prophylaxis per Dr. Curiel (2) Fall: Code(s): W19.XXXA - Unspecified fall, initial encounter Status: Acute Assessment and Plan: See above (3) Left bundle branch block: Code(s): I44.7 - Left bundle-branch block, unspecified Status: Acute Assessment and Plan: Patient sustained a hip fracture after suffering from a fall while out in her garage. Unfortunately the patient could not give further information as to how she fell and further work up is to be done to rule out Cardiac Dysrhythmia which could have caused LOC and Fall. EKG shows a left bundle branch block and I have no EKG tracings for comparison since 2004 at which time that was not evident. Echocardiogram showed moderately reduced EF 40-45%, mild LV chamber enlargement, diastolic grade 1 dysfunction. Carotid Doppler showed less than 50% stenosis bilaterally CT head showed no evidence of acute infarction, mild chronic small-vessel ischemic disease and cerebral atrophy. Cardiology evaluated the patient and said she is at moderate risk for surgery at this time. Cardiology is checking a postop EKG and will consider further evaluation with a Lexiscan today. Will continue monitoring on telemetry until discontinued by Cardiology Appreciate cardiology's input. (4) Murmur: Code(s): R01.1 - Cardiac murmur, unspecified Status: Acute Assessment and Plan: Echo showed mild , mild MR, trace TR. (5) Essential hypertension: Code(s): I10 - Essential (primary) hypertension Status: Acute Assessment and Plan: Blood pressure normal at 125/59 this morning. She was initially given her home amlodipine, lisinopril and metoprolol tartrate. Amlodipine was held yesterday as she had episode of hypotension with 100 systolic. Continue monitoring make adjustments if needed. (6) Tobacco abuse: Code(s): Z72.0 - Tobacco use Status: Acute Assessment and Plan: Patient denies nicotine patch at this time. Additional Plan Subjective Date/time seen: 12/02/21 15:10 Interval history: 76-year-old female smoker with hypertension, hyperlipidemia, and peripheral arterial disease, admitted for R hip fracture. POD #2: Right Hip Gamma Jay She reports overall fatigue but otherwise has no complaints. No cp/sob. No hip pain currently. Review of Systems Review of Systems: General: Denies fevers, +fatigue Eyes: Denies vision changes ENT: Denies nasal congestion or sore throat Respiratory: Denies cough or shortness of breath Cardiovascular: Denies chest pain or lower extremity edema Gastrointestinal: Denies abdominal pain, vomiting, or diarrhea Genitourinary: Denies dysuria Musculoskeletal: Denies back pain Neurological: Denies headache or motor weakness Integumentary: D
[2021-12-03] VITALS (15 sets, daily range): BP systolic 124–176; BP diastolic 59–70; PULSE 75–102; RESP 16–18; TEMP 36.1–36.6; O2SAT 95–99
[2021-12-03 06:06] LABS: Basophils Absolute Auto 0.1 K/mm3 (0.0-0.1); Basophils Percent Auto 0.5 % (0.2-1.2); Eosinophils Absolute Auto 0.1 K/mm3 (0-0.3); Eosinophils Percent Auto 1.2 % (0-4.4); Hematocrit 33.3 % (37.0-47.0); Hemoglobin 10.9 g/dL (12.0-15.0); Mean Corpuscular HGB Conc 32.7 g/dl (32-36); Mean Corpuscular Hemoglobin 31.3 pg (26-34); Mean Corpuscular Volume 95.7 fl (80-100); Mean Platelet Volume 10.2 fl (7.4-10.4); Monocytes Absolute Auto 1.6 K/mm3 (0.1-0.6); Monocytes Percent Auto 16.2 % (2.6-8.5); Neutrophils Percent Auto 70.1 % (45.5-73.1); Platelet Count Result 325 k/mm3 (150-375); Red Blood Count 3.48 M/mm3 (4.2-5.4); Red Cell Distribution Width 13.2 % (11.5-14.5)
[2021-12-03 06:25] LABS: Alanine Aminotransferase 11 U/L (4-35); Albumin Level 3.1 g/dL (3.5-5.1); Alkaline Phosphatase 72 U/L (38-126); Anion Gap 9 mmol/L (8-16); Aspartate Amino Transferase 22 U/L (14-36); Bilirubin,Total 0.8 mg/dL (0.2-1.3); Blood Urea Nitrogen 18 mg/dL (7-17); Calcium 8.6 mg/dL (8.4-10.2); Carbon Dioxide 27 mmol/L (22-30); Chloride 96 mmol/L (98-107); Estimated CRCL calculation 38 ml/min; Estimated Glomerular Filt Rate > 60; Glucose 99 mg/dL (65-110); Potassium 3.6 mmol/L (3.4-5.0); Sodium 132 mmol/L (137-145)
[2021-12-03] MEDS: MORPHINE SULFATE (*CRX) 4 MG/ML INJ 3 MG IV PUSH (06:30)
--- NOTE | 2021-12-03 07:51 | PM.PNCARD ---
Progress Note: A&P Assessment and Plan (1) Preop cardiovascular exam: Code(s): Z01.810 - Encounter for preprocedural cardiovascular examination Status: Acute Assessment and Plan: Risk profile: Asymptomatic from cardiac standpoint, Moderate systolic dysfunction, PAT, PAD, Hypertension, Dyslipidemia, Smoking. Functional status: Poor <4 METs due to arthritis and possibly JANE. Surgery: Orthopedic which is moderate cardiac risk. Overall risk stratification: She is at at least moderately high cardiac risk for noncardiac surgery given the above. Unfortunately, it Wednesday and we do not perform stress testing on weekends. Discuss with patient about this and that we have to weigh the risks/benefits of surgery. She will need to discuss with ortho further about it. She is postop day 3. Postop EKG was unremarkable. (2) PAT (paroxysmal atrial tachycardia): Code(s): I47.1 - Supraventricular tachycardia Status: Acute Assessment and Plan: TSH is OK. Mag level is OK. On Metoprololl Tartate 100 mg PO BID to suppress PAC's and decrease PAT episodes. (3) Left bundle branch block: Code(s): I44.7 - Left bundle-branch block, unspecified Status: Acute (4) Peripheral vascular disease: Code(s): I73.9 - Peripheral vascular disease, unspecified Status: Acute Assessment and Plan: She is on Cilostazol. (5) Tobacco abuse: Code(s): Z72.0 - Tobacco use Status: Acute Assessment and Plan: Counseled regarding smoking cessation. (6) Mixed hyperlipidemia: Code(s): E78.2 - Mixed hyperlipidemia Status: Acute Assessment and Plan: On Rosuvastatin. (7) Essential hypertension: Code(s): I10 - Essential (primary) hypertension Status: Acute Assessment and Plan: Mildly high. Monitor as starting Metoprolol. (8) Systolic dysfunction: Code(s): I51.9 - Heart disease, unspecified Status: Acute Assessment and Plan: Echo on 11/29/20 EF 40-45%, mild LVE, grade I diastolic dysfunction (E/e' 10), mild LAE, mild (JAYMIE 1.6 cm2), mild MR, trace TR. Lexiscan myoview stress test on 12/02/20 shows no reversible ischemia, and only fixed anterior defects which could be artifact; EF 37%. She is on Metoprolol and Lisinopril to for systolic dysfunction. Subjective Date/time seen: 12/03/21 07:51 Denies chest pain or sob or palpitations. Telemetry overnight did not have PAT. Exam Const: General: cooperative, healthy appearing and comfortable Resp: Auscultation: clear to auscultation bilaterally, no crackles, no rales, no rhonchi and no wheezes Cardio: Jugular venous distension: no JVD Rate: regular rate Rhythm: regular rhythm Heart sounds: no murmurs GI: GI Palp: No abdominal tenderness and Yes Soft to palpation Neuro: General: oriented to person, oriented to place and oriented to time Extrem: Right lower extremity: no edema Left lower extremity: no edema Objective Data Vital Signs Vital Signs: Vital Signs - 24 hr 12/02/21 09:05 12/02/21 09:06 12/02/21 10:05 Temperature 98.4 F Pulse Rate 116 H 106 H 103 H Respiratory Rate 14 Blood Pressure 125/59 L Pulse Oximetry 97 12/02/21 14:15 12/02/21 16:00 12/02/21 18:00 Temperature 97.5 F L 97.6 F Pulse Rate 85 86 84 Respiratory Rate 16 16 Blood Pressure 120/58 L 154/62 H Pulse Oximetry 98 96 12/02/21 20:00 12/02/21 20:48 12/02/21 22:00 Temperature 97.0 F L Pulse Rate 89 84 90 Respiratory Rate 16 18 Blood Pressure 154/65 H Pulse Oximetry 96 97 12/03/21 00:00 12/03/21 02:35 12/03/21 04:00 Temperature 97.2 F L Pulse Rate 75 76 83 Respiratory Rate 18 Blood Pressure 176/70 H Pulse Oximetry 97 12/03/21 06:00 Temperature 97.8 F Pulse Rate 81 Respiratory Rate 18 Blood Pressure 142/68 H Pulse Oximetry 96 Intake/Output Intake/Output: Intake & Output 11/30/21 12/01/21 12/02/21 12/03/21 23:59 23:59 23:59 23:59 I
[2021-12-03] MEDS: FAMOTIDINE 20 MG TABLET PO ×2 (09:44→20:38)
[2021-12-03] MEDS: SENNA/DOCUSATE SODIUM TABLET 2 TAB PO ×2 (09:44→16:48)
[2021-12-03] MEDS: lisinopriL 20 MG TABLET PO (09:44)
[2021-12-03] MEDS: CELECOXIB 200 MG CAPSULE PO (09:44)
[2021-12-03] MEDS: ROSUVASTATIN 5 MG TABLET BY MOUTH (09:45)
[2021-12-03] MEDS: polyethylene glycoL 3350 17 GM POWD.PACK PO (09:45)
[2021-12-03] MEDS: METOPROLOL TARTRATE 50 MG TAB 100 MG PO ×2 (09:46→20:38)
[2021-12-03] MEDS: HEPARIN SODIUM 5,000 UNITS/ML VIAL 5000 UNITS SUB-Q ×2 (09:46→20:38)
--- NOTE | 2021-12-03 14:51 | PM.IMPN ---
Progress Note: A&P Assessment and Plan (1) Closed intertrochanteric fracture of right hip: Qualifiers: Encounter type: initial encounter Fracture alignment: displaced Qualified Code(s): S72.141A - Displaced intertrochanteric fracture of right femur, initial encounter for closed fracture Code(s): S72.141A - Displaced intertrochanteric fracture of right femur, initial encounter for closed fracture Status: Acute Assessment and Plan: Patient had fallen at home and found to have a right comminuted intertrochanteric proximal femur fracture. Dr. Curiel evaluated the patient and took her to surgery on 11/30/2021 for an insertion of a gamma jay to the right hip Cardiology evaluated the patient states she is at moderate risk and went over the risks and benefits of surgery Pain management, Discharge planning, Post-op care, DVT Prophylaxis per Dr. Curiel (2) Fall: Code(s): W19.XXXA - Unspecified fall, initial encounter Status: Acute Assessment and Plan: See above (3) Left bundle branch block: Code(s): I44.7 - Left bundle-branch block, unspecified Status: Acute Assessment and Plan: Patient sustained a hip fracture after suffering from a fall while out in her garage. Unfortunately the patient could not give further information as to how she fell and further work up is to be done to rule out Cardiac Dysrhythmia which could have caused LOC and Fall. EKG shows a left bundle branch block and I have no EKG tracings for comparison since 2004 at which time that was not evident. Echocardiogram showed moderately reduced EF 40-45%, mild LV chamber enlargement, diastolic grade 1 dysfunction. Carotid Doppler showed less than 50% stenosis bilaterally CT head showed no evidence of acute infarction, mild chronic small-vessel ischemic disease and cerebral atrophy. Cardiology evaluated the patient and said she was a moderate risk for surgery but decided to proceed. Cardiology is checking a postop EKG and will consider further evaluation with a Lexiscan today. Will continue monitoring on telemetry until discontinued by Cardiology Appreciate cardiology's input. (4) Murmur: Code(s): R01.1 - Cardiac murmur, unspecified Status: Acute Assessment and Plan: Echo showed mild , mild MR, trace TR. (5) Essential hypertension: Code(s): I10 - Essential (primary) hypertension Status: Acute Assessment and Plan: She was initially given her home amlodipine, lisinopril and metoprolol tartrate. Amlodipine was held at one point as she had episode of hypotension with 100 systolic. She was hypertensive today 176/70 so amlodipine was restarted. (6) Tobacco abuse: Code(s): Z72.0 - Tobacco use Status: Acute Assessment and Plan: Patient denies nicotine patch at this time. Additional Plan Subjective Date/time seen: 12/03/21 14:51 Interval history: 76-year-old female smoker with hypertension, hyperlipidemia, and peripheral arterial disease, admitted for R hip fracture. POD #3: Right Hip Gamma Jay Pt is tearful today saying she wants to go home. She does not want to go to rehab. She was up on the stair steady today and did well. She denies pain. No cp/sob. No other complaints. Review of Systems Review of Systems: General: Denies fevers Eyes: Denies vision changes ENT: Denies nasal congestion or sore throat Respiratory: Denies cough or shortness of breath Cardiovascular: Denies chest pain or lower extremity edema Gastrointestinal: Denies abdominal pain, vomiting, or diarrhea Genitourinary: Denies dysuria Musculoskeletal: Denies back pain
--- NOTE | 2021-12-03 16:56 | PM.PNORT ---
Progress Note: A&P Additional Plan POD 3 MAY DC TO SNF WHEN OK PER MEDICINE. SHE WILL F/U WITH ORTHO IN 6 WEEKS. WILL FOLLOW WHILE SHE IS ADMITTED. Time Spent With Patient Time with patient: less than 15 minutes Subjective Subjective Date/Time Seen: 12/03/21 16:56 POD 3 DOING WELL. SLOW PROGRESS WITH PT. NO CALF PAIN. Exam Extrem: Other: VSS AFEBRILE DRESSING DRY NV INTACT NEG HOMANS SIGN, CALF SOFT NON TENDER. Objective Data Vital Signs Vital Signs: Vital Signs - 24 hr 12/02/21 18:00 12/02/21 20:00 12/02/21 20:48 Temperature 36.4 C Pulse Rate 84 89 84 Respiratory Rate 16 16 Blood Pressure 154/62 H Pulse Oximetry 96 96 12/02/21 22:00 12/03/21 00:00 12/03/21 02:35 Temperature 36.1 C L 36.2 C L Pulse Rate 90 75 76 Respiratory Rate 18 18 Blood Pressure 154/65 H 176/70 H Pulse Oximetry 97 97 12/03/21 04:00 12/03/21 06:00 12/03/21 09:45 Temperature 36.6 C Pulse Rate 83 81 102 H Respiratory Rate 18 Blood Pressure 142/68 H Pulse Oximetry 96 12/03/21 09:46 12/03/21 10:00 12/03/21 12:00 Temperature 36.6 C Pulse Rate 101 H 95 82 Respiratory Rate 16 Blood Pressure 133/62 Pulse Oximetry 97 12/03/21 13:16 12/03/21 14:00 12/03/21 16:00 Temperature 36.4 C L Pulse Rate 80 83 Respiratory Rate 16 Blood Pressure 124/59 L Pulse Oximetry 95 99 Intake/Output Intake/Output: Intake & Output 11/30/21 12/01/21 12/02/21 12/03/21 23:59 23:59 23:59 23:59 Intake Total 1300 590 520 510 Output Total 1850 650 975 500 Balance -550 -60 -455 10 Meds/Results Medications: Active Medications Generic Name Dose Route Start Last Admin Trade Name Freq PRN Reason Stop Dose Admin Acetaminophen 650 mg 11/30/21 10:19 12/01/21 08:19 Acetaminophen 325 Mg Tablet PO 650 mg Q6H PRN Administration Mild Pain (1-3) or Fever Hydrocodone Bitart/Acetaminophen 1 tab 11/30/21 10:19 12/02/21 11:27 Hydrocodone/Acetaminophen (*Crx) 7.5-325 Mg Tablet PO 1 tab Q3H PRN Administration Pain Rated 4-6 Al Hydrox/Mg Hydrox/Simethicone 30 ml 11/30/21 10:19 Mag Hydrox/Al Hydrox/Simeth 30 Ml Udc PO Q6H PRN Indigestion Albuterol 2 puff 11/29/21 15:06 Albuterol Sulfate (*Sp) Aerosol 1 Puff INHALATION QIDRT PRN Shortness Of Breath/wheezing Amlodipine Besylate 2.5 mg 11/28/21 23:10 11/30/21 21:07 Amlodipine Besylate 2.5 Mg Tablet BY MOUTH 2.5 mg HS IGNACIO Administration Celecoxib 200 mg 12/01/21 08:00 12/03/21 09:44 Celecoxib 200 Mg Capsule PO 200 mg DAILY@0800 IGNACIO Administration Diazepam 5 mg 11/30/21 10:19 12/02/21 04:40 Diazepam (*Crx) 5 Mg Tablet PO 5 mg Q8H PRN Administration Muscle Spasm Famotidine 20 mg 11/30/21 21:00 12/03/21 09:44 Famotidine 20 Mg Tablet PO 20 mg Q12HR IGNACIO Administration Heparin Sodium (Porcine) 5,000 units 11/30/21 21:00 12/03/21 09:46 Heparin Sodium 5,000 Units/Ml Vial SUB-Q 5,000 units Q12HR IGNACIO Administration Hydroxyzine Pamoate 50 mg 11/30/21 10:19 Hydroxyzine Pamoate 25 Mg Capsule PO Q4H PRN Itching Lisinopril 20 mg 11/29/21 09:00 12/03/21 09:44 Lisinopril 20 Mg Tablet PO 20 mg DAILY IGNACIO Administration Magnesium Hydroxide 30 ml 11/30/21 10:19 Magnesium Hydroxide Susp 30 Ml Udc PO BID PRN Constipation Metoprolol Tartrate 100 mg 12/02/21 09:00 12/03/21 09:46 Metoprolol Tartrate 50 Mg Tab PO 100 mg Q12HR IGNACIO Administration Morphine Sulfate 3 mg 11/30/21 10:19 12/03/21 06:30 Morphine Sulfate (*Crx) 4 Mg/Ml Inj IV PUSH 3 mg Q3H PRN Administration Pain Rated 7-10 Naloxone HCl 0.1 mg 11/30/21 10:19 Naloxone Hcl 0.4 Mg/Ml Vial IV PUSH Q2M PRN Opiate Reversal Ondansetron HCl 4 mg 11/30/21 10:19 11/30/21 15:26 Ondansetron Inj 4 Mg/2 Ml Vial IV PUSH 4 mg Q4H PRN Administration Nausea And Vomiting Polyethylene Glycol 17 gm 12/01/21 09:00 12/03/21 0
[2021-12-03] MEDS: amLODIPine BESYLATE 2.5 MG TABLET BY MOUTH (20:38)
[2021-12-04] VITALS (15 sets, daily range): BP systolic 127–160; BP diastolic 55–68; PULSE 66–101; RESP 14–20; TEMP 36.1–36.7; O2SAT 74–98
[2021-12-04 06:06] LABS: Hematocrit 32.4 % (37.0-47.0); Hemoglobin 10.8 g/dL (12.0-15.0); Mean Corpuscular HGB Conc 33.3 g/dl (32-36); Mean Corpuscular Hemoglobin 31.7 pg (26-34); Mean Platelet Volume 9.6 fl (7.4-10.4); Platelet Count Result 354 k/mm3 (150-375); Red Blood Count 3.41 M/mm3 (4.2-5.4); White Blood Count 9.8 K/mm3 (4.5-10.0)
[2021-12-04 06:17] LABS: Anion Gap 8 mmol/L (8-16); Blood Urea Nitrogen 17 mg/dL (7-17); Calcium 8.6 mg/dL (8.4-10.2); Carbon Dioxide 28 mmol/L (22-30); Chloride 97 mmol/L (98-107); Estimated CRCL calculation 43 ml/min; Estimated Glomerular Filt Rate > 60; Glucose 104 mg/dL (65-110); Potassium 3.5 mmol/L (3.4-5.0); Sodium 133 mmol/L (137-145)
--- NOTE | 2021-12-04 08:10 | PM.PNCARD ---
Progress Note: A&P Assessment and Plan (1) Preop cardiovascular exam: Code(s): Z01.810 - Encounter for preprocedural cardiovascular examination Status: Acute Assessment and Plan: Risk profile: Asymptomatic from cardiac standpoint, Moderate systolic dysfunction, PAT, PAD, Hypertension, Dyslipidemia, Smoking. Functional status: Poor <4 METs due to arthritis and possibly JANE. Surgery: Orthopedic which is moderate cardiac risk. Overall risk stratification: She is at at least moderately high cardiac risk for noncardiac surgery given the above. Unfortunately, it Wednesday and we do not perform stress testing on weekends. Discuss with patient about this and that we have to weigh the risks/benefits of surgery. She will need to discuss with ortho further about it. She is postop day 4. Postop EKG was unremarkable. (2) PAT (paroxysmal atrial tachycardia): Code(s): I47.1 - Supraventricular tachycardia Status: Acute Assessment and Plan: No more episodes of PAT in last 24 hours. TSH is OK. Mag level is OK. On Metoprolol Tartate 100 mg PO BID to suppress PAC's and decrease PAT episodes. (3) Left bundle branch block: Code(s): I44.7 - Left bundle-branch block, unspecified Status: Acute (4) Peripheral vascular disease: Code(s): I73.9 - Peripheral vascular disease, unspecified Status: Acute Assessment and Plan: She is on Cilostazol. (5) Tobacco abuse: Code(s): Z72.0 - Tobacco use Status: Acute Assessment and Plan: Counseled regarding smoking cessation. (6) Mixed hyperlipidemia: Code(s): E78.2 - Mixed hyperlipidemia Status: Acute Assessment and Plan: On Rosuvastatin. (7) Essential hypertension: Code(s): I10 - Essential (primary) hypertension Status: Acute Assessment and Plan: Mildly high. Monitor as starting Metoprolol. (8) Systolic dysfunction: Code(s): I51.9 - Heart disease, unspecified Status: Acute Assessment and Plan: Echo on 11/29/20 EF 40-45%, mild LVE, grade I diastolic dysfunction (E/e' 10), mild LAE, mild (JAYMIE 1.6 cm2), mild MR, trace TR. Lexiscan myoview stress test on 12/02/20 shows no reversible ischemia, and only fixed anterior defects which could be artifact; EF 37%. She is on Metoprolol and Lisinopril to for systolic dysfunction. Have patient f/u with me in next 2 week. Will sign off. Please call with any questions. Subjective Date/time seen: 12/04/21 08:10 Denies chest pain or sob. Exam Const: General: cooperative, healthy appearing and comfortable Resp: Auscultation: clear to auscultation bilaterally, no crackles, no rales, no rhonchi and no wheezes Cardio: Jugular venous distension: no JVD Rate: regular rate Rhythm: regular rhythm Heart sounds: no murmurs GI: GI Palp: No abdominal tenderness and Yes Soft to palpation Neuro: General: oriented to person, oriented to place and oriented to time Extrem: Right lower extremity: no edema Left lower extremity: no edema Objective Data Vital Signs Vital Signs: Vital Signs - 24 hr 12/03/21 09:45 12/03/21 09:46 12/03/21 10:00 Temperature 97.8 F Pulse Rate 102 H 101 H 95 Respiratory Rate 16 Blood Pressure 133/62 Pulse Oximetry 97 12/03/21 12:00 12/03/21 13:16 12/03/21 14:00 Temperature 97.5 F L Pulse Rate 82 80 Respiratory Rate 16 Blood Pressure 124/59 L Pulse Oximetry 95 99 12/03/21 16:00 12/03/21 18:00 12/03/21 20:00 Temperature 97.0 F L Pulse Rate 83 75 78 Respiratory Rate 18 Blood Pressure 143/67 H Pulse Oximetry 97 12/03/21 20:38 12/03/21 22:00 12/04/21 00:00 Temperature 97.6 F Pulse Rate 86 86 83 Respiratory Rate 18 Blood Pressure 142/60 H Pulse Oximetry 97 12/04/21 02:00 12/04/21 04:00 12/04/21 06:00 Temperature 97.0 F L 97.4 F L Pulse Rate 78 78 78 Respiratory Rate 20 18 Blood Pressure 136/55 L 154/63 H Pulse Oximetry 98 9
[2021-12-04] MEDS: ROSUVASTATIN 5 MG TABLET BY MOUTH (08:22)
[2021-12-04] MEDS: FAMOTIDINE 20 MG TABLET PO ×2 (08:22→20:23)
[2021-12-04] MEDS: SENNA/DOCUSATE SODIUM TABLET 2 TAB PO ×2 (08:22→16:54)
[2021-12-04] MEDS: HEPARIN SODIUM 5,000 UNITS/ML VIAL 5000 UNITS SUB-Q ×2 (08:22→20:19)
[2021-12-04] MEDS: METOPROLOL TARTRATE 50 MG TAB 100 MG PO ×2 (08:22→20:23)
[2021-12-04] MEDS: lisinopriL 20 MG TABLET PO (08:22)
[2021-12-04] MEDS: CELECOXIB 200 MG CAPSULE PO (08:22)
[2021-12-04] MEDS: polyethylene glycoL 3350 17 GM POWD.PACK PO (08:23)
--- NOTE | 2021-12-04 12:23 | PM.PNORT ---
Progress Note: A&P Assessment and Plan (1) Closed intertrochanteric fracture of right hip: Qualifiers: Encounter type: initial encounter Fracture alignment: displaced Qualified Code(s): S72.141A - Displaced intertrochanteric fracture of right femur, initial encounter for closed fracture Code(s): S72.141A - Displaced intertrochanteric fracture of right femur, initial encounter for closed fracture Status: Acute Assessment and Plan: POD #4: Right Hip Gamma Jay Continue PT/OT. WBAT. Walker. HIGH FALL RISK. Continue pain control. Ice lateral hip. SCDs. Incentive Spirometry. DVT prophylaxis x4 weeks post op. Change dressing daily with island dressing. Jen to be removed on POD #14. Dispo: Acute Rehab when medically stable. Time Spent With Patient Time with patient: less than 15 minutes Subjective Subjective Date/Time Seen: 12/04/21 12:23 Interval history: POD #4: Right Hip Gamma Jay No new complaints. Pain well controlled. Slow progress with PT/OT. Review of Systems Constitutional: Constitutional: Reports as per HPI, Denies fatigue, Denies fever(s) and Denies weakness Cardiovascular: Cardiovascular: Denies chest pain Respiratory: Respiratory: Denies cough and Denies dyspnea Gastrointestinal: Gastrointestinal: Denies abdominal pain Genitourinary: Genitourinary: Reports no additional female genitourinary complaints Musculoskeletal: Musculoskeletal: Reports as per HPI Exam Const: General: comfortable and no acute distress Resp: Effort & Inspection: normal respiratory effort GI: Inspection: non-distended GI Palp: Yes Soft to palpation and No Tenderness to palpation present (GI) Skin: Wounds: wounds noted (Incision right hip c/d/i ) Neuro: Cognition (Neuro): normal cognition Extrem: Right lower extremity: hip/thigh Details: tenderness Location: of the hip Location: laterally, swelling Location: at the hip and abnormal ROM (limited but improving ); no ecchymosis, knee Details: normal to inspection; no tenderness and no swelling, lower leg (Negative Timmy's Sign ), ankle (+ankle dorsiflexion/plantarflexion ) and foot (2+ pedal pulses ) Details: normal capillary refill and vascular exam Details: dorsalis pedis pulse present Objective Data Vital Signs Vital Signs: Vital Signs - 24 hr 12/03/21 13:16 12/03/21 14:00 12/03/21 16:00 Temperature 36.4 C L Pulse Rate 80 83 Respiratory Rate 16 Blood Pressure 124/59 L Pulse Oximetry 95 99 12/03/21 18:00 12/03/21 20:00 12/03/21 20:38 Temperature 36.1 C L Pulse Rate 75 78 86 Respiratory Rate 18 Blood Pressure 143/67 H Pulse Oximetry 97 12/03/21 22:00 12/04/21 00:00 12/04/21 02:00 Temperature 36.4 C 36.1 C L Pulse Rate 86 83 78 Respiratory Rate 18 20 Blood Pressure 142/60 H 136/55 L Pulse Oximetry 97 98 12/04/21 04:00 12/04/21 06:00 12/04/21 08:00 Temperature 36.3 C L Pulse Rate 78 78 101 H Respiratory Rate 18 Blood Pressure 154/63 H Pulse Oximetry 97 12/04/21 08:22 12/04/21 10:32 Temperature 36.6 C Pulse Rate 78 66 Respiratory Rate 18 Blood Pressure 127/58 L Pulse Oximetry 97 Intake/Output Intake/Output: Intake & Output 12/01/21 12/02/21 12/03/21 12/04/21 23:59 23:59 23:59 23:59 Intake Total 590 520 810 220 Output Total 650 975 800 400 Balance -60 -455 10 -180 Meds/Results Medications: Active Medications Generic Name Dose Route Start Last Admin Trade Name Freq PRN Reason Stop Dose Admin Acetaminophen 650 mg 11/30/21 10:19 12/01/21 08:19 Acetaminophen 325 Mg Tablet PO 650 mg Q6H PRN Administration Mild Pain (1-3) or Fever Hydrocodone Bitart/Acetaminophen 1 tab 11/30/21 10:19 12/02/21 11:27 Hydrocodone/Acetaminophen (*Crx) 7.5-325 Mg Tablet PO 1 tab Q3H PRN Administration Pain Rated 4-6 Al Hydrox/Mg Hydrox/Simethicone 30 ml 11/30/21 10:19 Mag Hydrox/Al Hydrox/Simeth 30 Ml Udc PO Q6H PRN Indigestion
--- NOTE | 2021-12-04 12:45 | PM.IMPN ---
Progress Note: A&P Assessment and Plan (1) Closed intertrochanteric fracture of right hip: Qualifiers: Encounter type: initial encounter Fracture alignment: displaced Qualified Code(s): S72.141A - Displaced intertrochanteric fracture of right femur, initial encounter for closed fracture Code(s): S72.141A - Displaced intertrochanteric fracture of right femur, initial encounter for closed fracture Status: Acute Assessment and Plan: Patient had fallen at home and found to have a right comminuted intertrochanteric proximal femur fracture. Dr. Curiel evaluated the patient and took her to surgery on 11/30/2021 for an insertion of a gamma jay to the right hip POD #4 - pain well controlled PT/OT - progressing slowly Pain management, Discharge planning, Post-op care, DVT Prophylaxis per Dr. Curiel (2) Preop cardiovascular exam: Code(s): Z01.810 - Encounter for preprocedural cardiovascular examination Status: Acute Assessment and Plan: Cardiology evaluated the patient states she is at moderate risk and went over the risks and benefits of surgery, pt decided to proceed Post op EKG unremarkable (3) PAT (paroxysmal atrial tachycardia): Code(s): I47.1 - Supraventricular tachycardia Status: Acute Assessment and Plan: -evaluated by cardiology -No more episodes of PAT in last 24 hours. -TSH is OK. -Mag level is OK. -On Metoprolol Tartate 100 mg PO BID to suppress PAC's and decrease PAT episodes. -follow up in clinic in 2 weeks -stable for discharge per cardiology (4) Systolic dysfunction: Code(s): I51.9 - Heart disease, unspecified Status: Acute Assessment and Plan: -Echo on 11/29/20 EF 40-45%, mild LVE, grade I diastolic dysfunction (E/e' 10), mild LAE, mild (JAYMIE 1.6 cm2), mild MR, trace TR. -Lexiscan myoview stress test on 12/02/20 shows no reversible ischemia, and only fixed anterior defects which could be artifact; EF 37%. -She is on Metoprolol and Lisinopril to for systolic dysfunction. -Pt will f/u w/ Dr. Price in clinic in 2 weeks (5) Essential hypertension: Code(s): I10 - Essential (primary) hypertension Status: Acute Assessment and Plan: She was initially given her home amlodipine, lisinopril and metoprolol tartrate. Amlodipine was held at one point as she had episode of hypotension with 100 systolic. She was hypertensive today 176/70 so amlodipine was restarted. Still mildly high, will monitor as her Metoprolol was just increased (6) Tobacco abuse: Code(s): Z72.0 - Tobacco use Status: Acute Assessment and Plan: Patient denies nicotine patch at this time. Counseled regarding smoking cessation. Additional Plan Subjective Date/time seen: 12/04/21 12:45 Interval history: 76-year-old female smoker with hypertension, hyperlipidemia, and peripheral arterial disease, admitted for R hip fracture. POD #4: Right Hip Gamma Jay Pt has no complaints. Denies hip pain. Was up with stair steady today and states did well. Did not use walker today. Is now agreeable to SNF. No cp or sob. No lower extremity edema. Review of Systems Review of Systems: General: Denies fevers Eyes: Denies vision changes ENT: Denies nasal congestion or sore throat Respiratory: Denies cough or shortness of breath Cardiovascular: Denies chest pain or lower extremity edema Gastrointestinal: Denies abdominal pain, vomiting, or diarrhea Genitourinary: Denies dysuria Musculoskeletal: Denies back pain Neurological: Denies headache or motor weakness Integumentary: Denies rash Exam Narrative: General: NAD, non toxic appearing, elderly Skin: No jaundice or cyanosis. Good skin turgor. Neck: Full range of motion. Supple. Respiratory: Lungs are clear to au
[2021-12-04] MEDS: amLODIPine BESYLATE 2.5 MG TABLET BY MOUTH (20:23)
[2021-12-05] VITALS (8 sets, daily range): BP systolic 110–147; BP diastolic 54–74; PULSE 64–84; RESP 16–18; TEMP 36.1–36.6; O2SAT 96–99; BMI 21.9
--- NOTE | 2021-12-05 07:48 | PM.PNCARD ---
Progress Note: A&P Assessment and Plan (1) Preop cardiovascular exam: Code(s): Z01.810 - Encounter for preprocedural cardiovascular examination Status: Acute Assessment and Plan: Risk profile: Asymptomatic from cardiac standpoint, Moderate systolic dysfunction, PAT, PAD, Hypertension, Dyslipidemia, Smoking. Functional status: Poor <4 METs due to arthritis and possibly JANE. Surgery: Orthopedic which is moderate cardiac risk. Overall risk stratification: She is at at least moderately high cardiac risk for noncardiac surgery given the above. Unfortunately, it Wednesday and we do not perform stress testing on weekends. Discuss with patient about this and that we have to weigh the risks/benefits of surgery. She will need to discuss with ortho further about it. She is postop day 5. Postop EKG was unremarkable. (2) PAT (paroxysmal atrial tachycardia): Code(s): I47.1 - Supraventricular tachycardia Status: Acute Assessment and Plan: No more episodes of PAT. TSH is OK. Mag level is OK. On Metoprolol Tartate 100 mg PO BID to suppress PAC's and decrease PAT episodes. (3) Left bundle branch block: Code(s): I44.7 - Left bundle-branch block, unspecified Status: Acute (4) Peripheral vascular disease: Code(s): I73.9 - Peripheral vascular disease, unspecified Status: Acute Assessment and Plan: She is on Cilostazol. (5) Tobacco abuse: Code(s): Z72.0 - Tobacco use Status: Acute Assessment and Plan: Counseled regarding smoking cessation. (6) Mixed hyperlipidemia: Code(s): E78.2 - Mixed hyperlipidemia Status: Acute Assessment and Plan: On Rosuvastatin. (7) Essential hypertension: Code(s): I10 - Essential (primary) hypertension Status: Acute Assessment and Plan: Mildly high. Monitor as starting Metoprolol. (8) Systolic dysfunction: Code(s): I51.9 - Heart disease, unspecified Status: Acute Assessment and Plan: Echo on 11/29/20 EF 40-45%, mild LVE, grade I diastolic dysfunction (E/e' 10), mild LAE, mild (JAYMIE 1.6 cm2), mild MR, trace TR. Lexiscan myoview stress test on 12/02/20 shows no reversible ischemia, and only fixed anterior defects which could be artifact; EF 37%. She is on Metoprolol and Lisinopril to for systolic dysfunction. Have patient f/u with me in next 2 week at [facility]. Will sign off. Please call with any questions. Subjective Date/time seen: 12/05/21 07:48 Denies chest pain, sob, palpitations. Exam Const: General: cooperative, healthy appearing and comfortable Resp: Auscultation: clear to auscultation bilaterally, no crackles, no rales, no rhonchi and no wheezes Cardio: Jugular venous distension: no JVD Rate: regular rate Rhythm: regular rhythm Heart sounds: no murmurs GI: GI Palp: No abdominal tenderness and Yes Soft to palpation Neuro: General: oriented to person, oriented to place and oriented to time Extrem: Right lower extremity: no edema Left lower extremity: no edema Objective Data Vital Signs Vital Signs: Vital Signs - 24 hr 12/04/21 08:00 12/04/21 08:22 12/04/21 10:32 Temperature 97.9 F Pulse Rate 101 H 78 66 Respiratory Rate 18 Blood Pressure 127/58 L Pulse Oximetry 97 12/04/21 12:00 12/04/21 14:49 12/04/21 16:00 Temperature 98.1 F Pulse Rate 79 98 80 Respiratory Rate 20 Blood Pressure 134/59 L Pulse Oximetry 74 L 12/04/21 18:42 12/04/21 20:00 12/04/21 20:23 Temperature 97.6 F Pulse Rate 74 84 83 Respiratory Rate 14 20 Blood Pressure 149/64 H Pulse Oximetry 98 97 12/04/21 20:32 12/04/21 23:55 12/05/21 04:20 Temperature 97 F L 97 F L 97 F L Pulse Rate 84 83 77 Respiratory Rate 20 20 18 Blood Pressure 148/66 H 160/68 H 147/58 H Pulse Oximetry 97 95 96 Intake/Output Intake/Output: Intake & Output 12/02/21 12/03/21 12/04/21 12/05/21 23:59 23:59 23:59 23:59 Intake Total 520
[2021-12-05] MEDS: METOPROLOL TARTRATE 50 MG TAB 100 MG PO ×2 (08:36→20:41)
[2021-12-05] MEDS: HEPARIN SODIUM 5,000 UNITS/ML VIAL 5000 UNITS SUB-Q ×2 (08:36→20:41)
[2021-12-05] MEDS: FAMOTIDINE 20 MG TABLET PO ×2 (08:38→20:41)
[2021-12-05] MEDS: polyethylene glycoL 3350 17 GM POWD.PACK PO (08:38)
[2021-12-05] MEDS: SENNA/DOCUSATE SODIUM TABLET 2 TAB PO ×2 (08:38→16:11)
[2021-12-05] MEDS: CELECOXIB 200 MG CAPSULE PO (08:38)
[2021-12-05] MEDS: lisinopriL 20 MG TABLET PO (08:38)
[2021-12-05] MEDS: ROSUVASTATIN 5 MG TABLET BY MOUTH (08:39)
[2021-12-05 11:38] LABS: Add Urine Microscopic? YES; Appearance Urine Clear (Clear); Bilirubin Urine Negative (Negative); Blood Urine Negative (Negative); Color Urine Yellow (Yellow); Glucose Urine UA Negative (Negative); Ketones Urine Trace mg/dL (Negative); Leukocyte Esterase Ur Trace LEU/UL (Negative); Mucus Urine Few /lpf; Nitrate Urine Negative (Negative); Protein Urine Negative (Negative); Specific Grav Ur 1.018 (1.001-1.035)
--- NOTE | 2021-12-05 12:34 | PM.DS ---
DS: Admitting Diagnosis Discharge Date 12/08/21 Admitting Diagnosis hip fracture DS: Discharge Diagnosis Discharge Diagnosis (1) Closed intertrochanteric fracture of right hip: Qualifiers: Encounter type: initial encounter Fracture alignment: displaced Qualified Code(s): S72.141A - Displaced intertrochanteric fracture of right femur, initial encounter for closed fracture Code(s): S72.141A - Displaced intertrochanteric fracture of right femur, initial encounter for closed fracture Status: Acute Assessment and Plan: Patient had fallen at home and found to have a right comminuted intertrochanteric proximal femur fracture. Dr. Curiel evaluated the patient and took her to surgery on 11/30/2021 for an insertion of a gamma philippe to the right hip POD #8 - pain well controlled PT/OT - progressing slowly. Pain management, Discharge planning, Post-op care, DVT Prophylaxis per Dr. Curiel (2) Preop cardiovascular exam: Code(s): Z01.810 - Encounter for preprocedural cardiovascular examination Status: Acute Assessment and Plan: Cardiology evaluated the patient states she is at moderate risk and went over the risks and benefits of surgery, pt decided to proceed Post op EKG unremarkable (3) PAT (paroxysmal atrial tachycardia): Code(s): I47.1 - Supraventricular tachycardia Status: Acute Assessment and Plan: -evaluated by cardiology -No more episodes of PAT in last 24 hours. -TSH is OK. -Mag level is OK. -On Metoprolol Tartate 100 mg PO BID to suppress PAC's and decrease PAT episodes. -follow up in clinic in 2 weeks -no further recommendations per cardiology (4) Systolic dysfunction: Code(s): I51.9 - Heart disease, unspecified Status: Acute Assessment and Plan: -Echo on 11/29/20 EF 40-45%, mild LVE, grade I diastolic dysfunction (E/e' 10), mild LAE, mild (JAYMIE 1.6 cm2), mild MR, trace TR. -Lexiscan myoview stress test on 12/02/20 shows no reversible ischemia, and only fixed anterior defects which could be artifact; EF 37%. -She is on Metoprolol and Lisinopril to for systolic dysfunction. -Pt will f/u w/ Dr. Price in clinic in 2 weeks (5) Essential hypertension: Code(s): I10 - Essential (primary) hypertension Status: Acute Assessment and Plan: She was initially given her home amlodipine, lisinopril and metoprolol tartrate. Amlodipine was held at one point as she had episode of hypotension with 100 systolic. Stable (6) Tobacco abuse: Code(s): Z72.0 - Tobacco use Status: Acute Assessment and Plan: Patient denies nicotine patch at this time. Counseled regarding smoking cessation. (7) Abnormal urinalysis: Code(s): R82.90 - Unspecified abnormal findings in urine Status: Acute Assessment and Plan: -UA ordered as it was noted patient had garo colored urine -suspicious for UTI given recent phillips catheter and garo colored urine -urine culture negative, ceftriaxone stopped DS: Summary Hospital Course Reason for hospitalization: 76-year-old female smoker with hypertension, hyperlipidemia, and peripheral arterial disease, admitted for R hip fracture. Please see HPI for further details. Hospital Course: Please see above for details of hospital course. Time spent discussing smoking cessation with patient: more than 10 minutes Status at Discharge Cognitive/behavioral status at discharge: stable Functional status at discharge: uses cane/walker Overall status at discharge: patient is progressing back to baseline Time Spent with Patient Time attestation: Total time spent providing and/or coordinating discharge services: 35 Time spent: Greater than 30 minutes Exam Narrative: General: NAD, non toxic appearing, el
--- NOTE | 2021-12-05 13:49 | PM.IMPN ---
Progress Note: A&P Assessment and Plan (1) Closed intertrochanteric fracture of right hip: Qualifiers: Encounter type: initial encounter Fracture alignment: displaced Qualified Code(s): S72.141A - Displaced intertrochanteric fracture of right femur, initial encounter for closed fracture Code(s): S72.141A - Displaced intertrochanteric fracture of right femur, initial encounter for closed fracture Status: Acute Assessment and Plan: Patient had fallen at home and found to have a right comminuted intertrochanteric proximal femur fracture. Dr. Curiel evaluated the patient and took her to surgery on 11/30/2021 for an insertion of a gamma jay to the right hip POD #5 - pain well controlled PT/OT - progressing slowly Pain management, Discharge planning, Post-op care, DVT Prophylaxis per Dr. Curiel (2) Preop cardiovascular exam: Code(s): Z01.810 - Encounter for preprocedural cardiovascular examination Status: Acute Assessment and Plan: Cardiology evaluated the patient states she is at moderate risk and went over the risks and benefits of surgery, pt decided to proceed Post op EKG unremarkable (3) PAT (paroxysmal atrial tachycardia): Code(s): I47.1 - Supraventricular tachycardia Status: Acute Assessment and Plan: -evaluated by cardiology -No more episodes of PAT in last 24 hours. -TSH is OK. -Mag level is OK. -On Metoprolol Tartate 100 mg PO BID to suppress PAC's and decrease PAT episodes. -follow up in clinic in 2 weeks -no further recommendations per cardiology (4) Systolic dysfunction: Code(s): I51.9 - Heart disease, unspecified Status: Acute Assessment and Plan: -Echo on 11/29/20 EF 40-45%, mild LVE, grade I diastolic dysfunction (E/e' 10), mild LAE, mild (JAYMIE 1.6 cm2), mild MR, trace TR. -Lexiscan myoview stress test on 12/02/20 shows no reversible ischemia, and only fixed anterior defects which could be artifact; EF 37%. -She is on Metoprolol and Lisinopril to for systolic dysfunction. -Pt will f/u w/ Dr. Price in clinic in 2 weeks (5) Essential hypertension: Code(s): I10 - Essential (primary) hypertension Status: Acute Assessment and Plan: She was initially given her home amlodipine, lisinopril and metoprolol tartrate. Amlodipine was held at one point as she had episode of hypotension with 100 systolic. Stable (6) Tobacco abuse: Code(s): Z72.0 - Tobacco use Status: Acute Assessment and Plan: Patient denies nicotine patch at this time. Counseled regarding smoking cessation. (7) Abnormal urinalysis: Code(s): R82.90 - Unspecified abnormal findings in urine Status: Acute Assessment and Plan: -UA ordered as it was noted patient had garo colored urine -suspicious for UTI given recent phillips catheter and garo colored urine -culture pending, will treat with ceftriaxone pending culture results Additional Plan Subjective Date/time seen: 12/05/21 13:49 Interval history: 76-year-old female smoker with hypertension, hyperlipidemia, and peripheral arterial disease, admitted for R hip fracture. POD #5: Right Hip Gamma Jay Pt has no complaints. Denies hip pain. Was up with stair steady today and states did well. Did not use walker today. No cp or sob. No lower extremity edema. Admits to loose stools. Still has phillips in with garo colored urine. Waiting on SNF auth. Review of Systems Review of Systems: General: Denies fevers Eyes: Denies vision changes ENT: Denies nasal congestion or sore throat Respiratory: Denies cough or shortness of breath Cardiovascular: Denies chest pain or lower extremity edema Gastrointestinal: Denies abdominal pain, vomiting, +loose stools Genitourinary: Denies dysuria Mus
[2021-12-05] MEDS: amLODIPine BESYLATE 2.5 MG TABLET BY MOUTH (20:41)
[2021-12-06] VITALS (8 sets, daily range): BP systolic 118–141; BP diastolic 48–61; PULSE 60–82; RESP 14–20; TEMP 35.9–36.6; O2SAT 94–100
[2021-12-06 06:03] LABS: Basophils Absolute Auto 0.1 K/mm3 (0.0-0.1); Basophils Percent Auto 0.8 % (0.2-1.2); Eosinophils Absolute Auto 0.3 K/mm3 (0-0.3); Hematocrit 34.2 % (37.0-47.0); Hemoglobin 11.1 g/dL (12.0-15.0); Immature Granulocyte Absolute 0.69 K/mm3 (0.00-0.031); Lymphocytes Absolute Auto 1.27 K/mm3 (0.9-3.2); Lymphocytes Percent Auto 9.3 % (18.3-44.2); Mean Corpuscular HGB Conc 32.5 g/dl (32-36); Mean Corpuscular Hemoglobin 31.1 pg (26-34); Mean Corpuscular Volume 95.8 fl (80-100); Mean Platelet Volume 9.4 fl (7.4-10.4); Monocytes Absolute Auto 1.8 K/mm3 (0.1-0.6); Monocytes Percent Auto 12.9 % (2.6-8.5); Neutrophils Absolute Auto 9.6 K/mm3 (1.3-6.7); Platelet Count Result 435 k/mm3 (150-375); Red Blood Count 3.57 M/mm3 (4.2-5.4); Red Cell Distribution Width 13.1 % (11.5-14.5); White Blood Count 13.7 K/mm3 (4.5-10.0)
[2021-12-06 06:13] LABS: Anion Gap 8 mmol/L (8-16); Blood Urea Nitrogen 14 mg/dL (7-17); Calcium 8.5 mg/dL (8.4-10.2); Carbon Dioxide 26 mmol/L (22-30); Chloride 99 mmol/L (98-107); Estimated CRCL calculation 38 ml/min; Estimated Glomerular Filt Rate > 60; Glucose 102 mg/dL (65-110); Potassium 3.6 mmol/L (3.4-5.0); Sodium 133 mmol/L (137-145)
[2021-12-06] MEDS: HEPARIN SODIUM 5,000 UNITS/ML VIAL 5000 UNITS SUB-Q ×2 (10:03→22:05)
[2021-12-06] MEDS: METOPROLOL TARTRATE 50 MG TAB 100 MG PO ×2 (10:03→22:06)
[2021-12-06] MEDS: CELECOXIB 200 MG CAPSULE PO (10:03)
[2021-12-06] MEDS: polyethylene glycoL 3350 17 GM POWD.PACK PO (10:03)
[2021-12-06] MEDS: SENNA/DOCUSATE SODIUM TABLET 2 TAB PO ×2 (10:03→16:56)
[2021-12-06] MEDS: ROSUVASTATIN 5 MG TABLET BY MOUTH (10:03)
[2021-12-06] MEDS: FAMOTIDINE 20 MG TABLET PO ×2 (10:04→22:05)
[2021-12-06] MEDS: lisinopriL 20 MG TABLET PO (10:04)
[2021-12-06] MEDS: ACETAMINOPHEN 325 MG TABLET 650 MG PO ×2 (10:11→16:56)
--- NOTE | 2021-12-06 11:37 | PM.IMPN ---
Progress Note: A&P Assessment and Plan (1) Closed intertrochanteric fracture of right hip: Qualifiers: Encounter type: initial encounter Fracture alignment: displaced Qualified Code(s): S72.141A - Displaced intertrochanteric fracture of right femur, initial encounter for closed fracture Code(s): S72.141A - Displaced intertrochanteric fracture of right femur, initial encounter for closed fracture Status: Acute Assessment and Plan: Patient had fallen at home and found to have a right comminuted intertrochanteric proximal femur fracture. Dr. Curiel evaluated the patient and took her to surgery on 11/30/2021 for an insertion of a gamma jay to the right hip POD #6 - pain well controlled PT/OT - progressing slowly. She reports osteoarthritis to both knees which has been bothering her when she is working with therapy. Will try tylenol. Pain management, Discharge planning, Post-op care, DVT Prophylaxis per Dr. Curiel (2) Preop cardiovascular exam: Code(s): Z01.810 - Encounter for preprocedural cardiovascular examination Status: Acute Assessment and Plan: Cardiology evaluated the patient states she is at moderate risk and went over the risks and benefits of surgery, pt decided to proceed Post op EKG unremarkable (3) PAT (paroxysmal atrial tachycardia): Code(s): I47.1 - Supraventricular tachycardia Status: Acute Assessment and Plan: -evaluated by cardiology -No more episodes of PAT in last 24 hours. -TSH is OK. -Mag level is OK. -On Metoprolol Tartate 100 mg PO BID to suppress PAC's and decrease PAT episodes. -follow up in clinic in 2 weeks -no further recommendations per cardiology (4) Systolic dysfunction: Code(s): I51.9 - Heart disease, unspecified Status: Acute Assessment and Plan: -Echo on 11/29/20 EF 40-45%, mild LVE, grade I diastolic dysfunction (E/e' 10), mild LAE, mild (JAYMIE 1.6 cm2), mild MR, trace TR. -Lexiscan myoview stress test on 12/02/20 shows no reversible ischemia, and only fixed anterior defects which could be artifact; EF 37%. -She is on Metoprolol and Lisinopril to for systolic dysfunction. -Pt will f/u w/ Dr. Price in clinic in 2 weeks (5) Essential hypertension: Code(s): I10 - Essential (primary) hypertension Status: Acute Assessment and Plan: She was initially given her home amlodipine, lisinopril and metoprolol tartrate. Amlodipine was held at one point as she had episode of hypotension with 100 systolic. Stable (6) Tobacco abuse: Code(s): Z72.0 - Tobacco use Status: Acute Assessment and Plan: Patient denies nicotine patch at this time. Counseled regarding smoking cessation. (7) Abnormal urinalysis: Code(s): R82.90 - Unspecified abnormal findings in urine Status: Acute Assessment and Plan: -UA ordered as it was noted patient had garo colored urine -suspicious for UTI given recent phillips catheter and garo colored urine -culture pending, will treat with ceftriaxone pending culture results Additional Plan Subjective Date/time seen: 12/06/21 11:37 Interval history: 76-year-old female smoker with hypertension, hyperlipidemia, and peripheral arterial disease, admitted for R hip fracture. POD #6: Right Hip Gamma Jay Pt has no complaints. Denies hip pain. Has been using stair steady but complains of bilateral knee pain when working with therapy. No cp or sob. No lower extremity edema. She is urinating well since her phillips was removed yesterday. Denies dysuria. Review of Systems Review of Systems: General: Denies fevers Eyes: Denies vision changes ENT: Denies nasal congestion or sore throat Respiratory: Denies cough or shortness of breath Cardiovascular: Denies chest pain or l
[2021-12-06] MEDS: amLODIPine BESYLATE 2.5 MG TABLET BY MOUTH (22:05)
[2021-12-07] VITALS (9 sets, daily range): BP systolic 125–151; BP diastolic 53–66; PULSE 62–73; RESP 16–21; TEMP 35.5–36.5; O2SAT 94–100
[2021-12-07] MEDS: diazePAM (*CRX) 5 MG TABLET PO (00:29)
[2021-12-07 05:38] LABS: Basophils Absolute Auto 0.1 K/mm3 (0.0-0.1); Basophils Percent Auto 1.1 % (0.2-1.2); Eosinophils Absolute Auto 0.3 K/mm3 (0-0.3); Eosinophils Percent Auto 2.6 % (0-4.4); Hematocrit 36.5 % (37.0-47.0); Hemoglobin 11.8 g/dL (12.0-15.0); Immature Granulocyte Absolute 0.84 K/mm3 (0.00-0.031); Immature Granulocyte Percent A 7.2 % (0-0.5); Lymphocytes Absolute Auto 1.69 K/mm3 (0.9-3.2); Lymphocytes Percent Auto 14.5 % (18.3-44.2); Mean Corpuscular HGB Conc 32.3 g/dl (32-36); Mean Corpuscular Hemoglobin 31.1 pg (26-34); Mean Corpuscular Volume 96.3 fl (80-100); Mean Platelet Volume 9.3 fl (7.4-10.4); Monocytes Absolute Auto 1.4 K/mm3 (0.1-0.6); Monocytes Percent Auto 11.8 % (2.6-8.5); Neutrophils Absolute Auto 7.3 K/mm3 (1.3-6.7); Neutrophils Percent Auto 62.8 % (45.5-73.1); Platelet Count Result 469 k/mm3 (150-375); Red Blood Count 3.79 M/mm3 (4.2-5.4); Red Cell Distribution Width 13.1 % (11.5-14.5); White Blood Count 11.7 K/mm3 (4.5-10.0)
[2021-12-07 05:45] LABS: Anion Gap 6 mmol/L (8-16); Blood Urea Nitrogen 15 mg/dL (7-17); Calcium 8.7 mg/dL (8.4-10.2); Carbon Dioxide 28 mmol/L (22-30); Chloride 99 mmol/L (98-107); Estimated CRCL calculation 38 ml/min; Estimated Glomerular Filt Rate > 60; Glucose 92 mg/dL (65-110); Potassium 3.8 mmol/L (3.4-5.0); Sodium 133 mmol/L (137-145)
[2021-12-07] MEDS: CELECOXIB 200 MG CAPSULE PO (08:40)
[2021-12-07] MEDS: FAMOTIDINE 20 MG TABLET PO ×2 (08:40→20:16)
[2021-12-07] MEDS: ROSUVASTATIN 5 MG TABLET BY MOUTH (08:40)
[2021-12-07] MEDS: SENNA/DOCUSATE SODIUM TABLET 2 TAB PO (08:40)
[2021-12-07] MEDS: polyethylene glycoL 3350 17 GM POWD.PACK PO (08:40)
[2021-12-07] MEDS: HEPARIN SODIUM 5,000 UNITS/ML VIAL 5000 UNITS SUB-Q ×2 (08:40→20:17)
[2021-12-07] MEDS: METOPROLOL TARTRATE 50 MG TAB 100 MG PO ×2 (08:41→20:17)
[2021-12-07] MEDS: lisinopriL 20 MG TABLET PO (08:41)
[2021-12-07] MEDS: ACETAMINOPHEN 325 MG TABLET 650 MG PO (08:48)
--- NOTE | 2021-12-07 12:59 | PM.IMPN ---
Progress Note: A&P Assessment and Plan (1) Closed intertrochanteric fracture of right hip: Qualifiers: Encounter type: initial encounter Fracture alignment: displaced Qualified Code(s): S72.141A - Displaced intertrochanteric fracture of right femur, initial encounter for closed fracture Code(s): S72.141A - Displaced intertrochanteric fracture of right femur, initial encounter for closed fracture Status: Acute Assessment and Plan: Patient had fallen at home and found to have a right comminuted intertrochanteric proximal femur fracture. Dr. Curiel evaluated the patient and took her to surgery on 11/30/2021 for an insertion of a gamma jay to the right hip POD #7 - pain well controlled PT/OT - progressing slowly. Pain management, Discharge planning, Post-op care, DVT Prophylaxis per Dr. Curiel (2) Preop cardiovascular exam: Code(s): Z01.810 - Encounter for preprocedural cardiovascular examination Status: Acute Assessment and Plan: Cardiology evaluated the patient states she is at moderate risk and went over the risks and benefits of surgery, pt decided to proceed Post op EKG unremarkable (3) PAT (paroxysmal atrial tachycardia): Code(s): I47.1 - Supraventricular tachycardia Status: Acute Assessment and Plan: -evaluated by cardiology -No more episodes of PAT in last 24 hours. -TSH is OK. -Mag level is OK. -On Metoprolol Tartate 100 mg PO BID to suppress PAC's and decrease PAT episodes. -follow up in clinic in 2 weeks -no further recommendations per cardiology (4) Systolic dysfunction: Code(s): I51.9 - Heart disease, unspecified Status: Acute Assessment and Plan: -Echo on 11/29/20 EF 40-45%, mild LVE, grade I diastolic dysfunction (E/e' 10), mild LAE, mild (JAYMIE 1.6 cm2), mild MR, trace TR. -Lexiscan myoview stress test on 12/02/20 shows no reversible ischemia, and only fixed anterior defects which could be artifact; EF 37%. -She is on Metoprolol and Lisinopril to for systolic dysfunction. -Pt will f/u w/ Dr. Price in clinic in 2 weeks (5) Essential hypertension: Code(s): I10 - Essential (primary) hypertension Status: Acute Assessment and Plan: She was initially given her home amlodipine, lisinopril and metoprolol tartrate. Amlodipine was held at one point as she had episode of hypotension with 100 systolic. Stable (6) Tobacco abuse: Code(s): Z72.0 - Tobacco use Status: Acute Assessment and Plan: Patient denies nicotine patch at this time. Counseled regarding smoking cessation. (7) Abnormal urinalysis: Code(s): R82.90 - Unspecified abnormal findings in urine Status: Acute Assessment and Plan: -UA ordered as it was noted patient had garo colored urine -suspicious for UTI given recent phillips catheter and garo colored urine -culture pending, will treat with ceftriaxone pending culture results Additional Plan Subjective Date/time seen: 12/07/21 12:59 Interval history: 76-year-old female smoker with hypertension, hyperlipidemia, and peripheral arterial disease, admitted for R hip fracture. POD #7: Right Hip Gamma Jay Pt has no complaints. Denies hip pain. Therapy went better yesterday with tylenol however still only using stair steady, no walker yet. No cp or sob. No lower extremity edema. Denies dysuria or urinary retention. Review of Systems Review of Systems: General: Denies fevers Eyes: Denies vision changes ENT: Denies nasal congestion or sore throat Respiratory: Denies cough or shortness of breath Cardiovascular: Denies chest pain or lower extremity edema Gastrointestinal: Denies abdominal pain, vomiting, +loose stools Genitourinary: Denies dysuria Musculoskeletal: denies hip pain Neuro
[2021-12-07] MEDS: amLODIPine BESYLATE 2.5 MG TABLET BY MOUTH (20:16)
[2021-12-08 04:50] VITALS: BP 131/64; PULSE 76; RESP 18; TEMP 35.8; O2SAT 98
[2021-12-08] MEDS: lisinopriL 20 MG TABLET PO (08:27)
[2021-12-08 08:28] VITALS: PULSE 76
[2021-12-08] MEDS: polyethylene glycoL 3350 17 GM POWD.PACK PO (08:28)
[2021-12-08] MEDS: ROSUVASTATIN 5 MG TABLET BY MOUTH (08:28)
[2021-12-08] MEDS: SENNA/DOCUSATE SODIUM TABLET 2 TAB PO ×2 (08:28→16:44)
[2021-12-08] MEDS: METOPROLOL TARTRATE 50 MG TAB 100 MG PO (08:28)
[2021-12-08] MEDS: CELECOXIB 200 MG CAPSULE PO (08:28)
[2021-12-08] MEDS: HEPARIN SODIUM 5,000 UNITS/ML VIAL 5000 UNITS SUB-Q (08:28)
[2021-12-08] MEDS: FAMOTIDINE 20 MG TABLET PO (08:28)
--- NOTE | 2021-12-08 09:20 | PM.PNORT ---
Progress Note: A&P Assessment and Plan (1) Closed intertrochanteric fracture of right hip: Qualifiers: Encounter type: initial encounter Fracture alignment: displaced Qualified Code(s): S72.141A - Displaced intertrochanteric fracture of right femur, initial encounter for closed fracture Code(s): S72.141A - Displaced intertrochanteric fracture of right femur, initial encounter for closed fracture Status: Acute Assessment and Plan: POD #8: Right Hip Gamma Jay Continue PT/OT. TTWB. Walker. HIGH FALL RISK. Continue pain control. Ice lateral hip. SCDs. Incentive Spirometry use reviewed. DVT prophylaxis x4 weeks post op. Change dressing daily with island dressing. Jen to be removed on POD #14. Dispo: Acute Rehab when medically stable. Subjective Subjective Date/Time Seen: 12/08/21 09:20 Interval history: POD #8: Right Hip Gamma Jay No new complaints. Pain well controlled. Awaiting SNF placement. Review of Systems Constitutional: Constitutional: Reports as per HPI, Denies fatigue, Denies fever(s) and Denies weakness Cardiovascular: Cardiovascular: Denies chest pain Respiratory: Respiratory: Denies cough and Denies dyspnea Gastrointestinal: Gastrointestinal: Denies abdominal pain Genitourinary: Genitourinary: Reports no additional female genitourinary complaints Musculoskeletal: Musculoskeletal: Reports as per HPI Exam Const: General: comfortable and no acute distress Resp: Effort & Inspection: normal respiratory effort GI: Inspection: non-distended GI Palp: Yes Soft to palpation and No Tenderness to palpation present (GI) Skin: Wounds: wounds noted (Incision right hip c/d/i ) Neuro: Cognition (Neuro): normal cognition Extrem: Right lower extremity: hip/thigh Details: tenderness Location: of the hip Location: laterally, swelling Location: at the hip and abnormal ROM (limited but improving ); no ecchymosis, knee Details: normal to inspection; no tenderness and no swelling, lower leg (Negative Timmy's Sign ), ankle (+ankle dorsiflexion/plantarflexion ) and foot (2+ pedal pulses ) Details: normal capillary refill and vascular exam Details: dorsalis pedis pulse present Objective Data Vital Signs Vital Signs: Vital Signs - 24 hr 12/07/21 11:00 12/07/21 15:13 12/07/21 18:00 Temperature 36.3 C L 36.3 C L 36.4 C L Pulse Rate 67 65 67 Respiratory Rate 20 16 16 Blood Pressure 125/58 L 136/62 127/53 L Pulse Oximetry 98 97 99 12/07/21 20:17 12/07/21 20:39 12/07/21 23:58 Temperature 36.1 C L 35.5 C L Pulse Rate 64 73 64 Respiratory Rate 20 18 Blood Pressure 151/55 H 146/55 H Pulse Oximetry 94 99 12/08/21 04:50 12/08/21 08:28 Temperature 35.8 C L Pulse Rate 76 76 Respiratory Rate 18 Blood Pressure 131/64 Pulse Oximetry 98 Intake/Output Intake/Output: Intake & Output 12/05/21 12/06/21 12/07/21 12/08/21 23:59 23:59 23:59 23:59 Intake Total 631 034 6346 342 Output Total 600 600 Balance -240 770 802 342 Meds/Results Medications: Active Medications Generic Name Dose Route Start Last Admin Trade Name Freq PRN Reason Stop Dose Admin Acetaminophen 650 mg 11/30/21 10:19 12/07/21 08:48 Acetaminophen 325 Mg Tablet PO 650 mg Q6H PRN Administration Mild Pain (1-3) or Fever Hydrocodone Bitart/Acetaminophen 1 tab 11/30/21 10:19 12/02/21 11:27 Hydrocodone/Acetaminophen (*Crx) 7.5-325 Mg Tablet PO 1 tab Q3H PRN Administration Pain Rated 4-6 Al Hydrox/Mg Hydrox/Simethicone 30 ml 11/30/21 10:19 Mag Hydrox/Al Hydrox/Simeth 30 Ml Udc PO Q6H PRN Indigestion Albuterol 2 puff 11/29/21 15:06 Albuterol Sulfate (*Sp) Aerosol 1 Puff INHALATION QIDRT PRN Shortness Of Breath/wheezing Amlodipine Besylate 2.5 mg 11/28/21 23:10 12/07/21 20:16 Amlodipine Besylate 2.5 Mg Tablet BY MOUTH 2.5 mg HS IGNACIO Administration Celecoxib 200 mg 12/01/21 08:00 12/08/21 08:28 Celecoxib 200 Mg Ca
[2021-12-08 09:57] VITALS: BP 127/61; PULSE 69; RESP 18; TEMP 36.4; O2SAT 96
[2021-12-08 13:25] VITALS: BMI 23.0
[2021-12-08 14:26] VITALS: BP 143/57; PULSE 69; RESP 20; TEMP 36.7; O2SAT 98
[2021-12-08 15:51] LABS: EDCOVIDSCREEN Negative (Negative)
== END 2021-12-08 17:14 | DRG 481 ==
LOC: ANHED 14:46 → ANH2MED 18:20
PROVIDERS: Internal Medicine Cardiovascular Disease; Orthopaedic Surgery; Physician Assistant; Admitting Provider Internal Medicine; Emergency Provider Emergency Medicine; PCP Family Medicine; Visit Provider Physician Assistant
PROC: 0QS634Z Reposition Right Upper Femur with Internal Fixation Device, Percutaneous Approach (ICD-10-PCS; CPT 27245; principal; 2021-11-30 07:30)
DX: S72.141A Displaced intertrochanteric fracture of right femur, initial encounter for closed fracture (principal); I47.1 Supraventricular tachycardia; W19.XXXA Unspecified fall, initial encounter; Z20.822 Contact with and (suspected) exposure to COVID-19; I11.9 Hypertensive heart disease without heart failure; I44.7 Left bundle-branch block, unspecified; I73.9 Peripheral vascular disease, unspecified; F17.210 Nicotine dependence, cigarettes, uncomplicated; E78.2 Mixed hyperlipidemia; M19.90 Unspecified osteoarthritis, unspecified site; M81.0 Age-related osteoporosis without current pathological fracture; R82.90 Unspecified abnormal findings in urine; Z79.82 Long term (current) use of aspirin; Z79.899 Other long term (current) drug therapy; Z86.73 Personal history of transient ischemic attack (TIA), and cerebral infarction without residual deficits
CPT/HCPCS: 36415; 70450; 71045; 72192; 73502; 78452; 80048; 80053; 81001; 81003; 83036; 83735; 84443; 84484; 85025; 85027; 86850; 86900; 86901; 87086; 87426; 93005; 93017; 93306; 93880; 96374; 96375; 97110; 97161; 97165; 97530; 97535; 99285; A9270; A9502; C1713; C9803; J0690; J0696; J1170; J1644; J1650; J2270; J2370; J2405; J2550; J2704; J2785; J3010; J7120

== ENCOUNTER 2022-07-20 08:30 | Outpatient (CLI) | payer MEDICARE, SELFPAY ==
[2022-07-20 08:57] LABS: Hematocrit 43.3 % (35.0-42.0); Hemoglobin 14.2 g/dL (11.7-13.8); Mean Corpuscular HGB Conc 32.8 g/dL (32.0-36.0); Mean Corpuscular Volume 97.5 fL (78.0-102.0); Mean Platelet Volume 9.5 fl (9.2-11.8); Platelet Count Result 215 K/mm3 (150-420); Red Blood Count 4.44 M/mm3 (4.20-5.40); Red Cell Distribution Width 13.4 % (11.6-14.4); White Blood Count 6.6 K/mm3 (4.8-10.8)
[2022-07-20 09:24] LABS: Alanine Aminotransferase 11 U/L (14-59); Albumin Level 3.9 g/dL (3.4-5.0); Alkaline Phosphatase 66 U/L (46-116); Anion Gap 8 mmol/L (8-16); Aspartate Amino Transferase 10 U/L (15-37); Bilirubin,Total 0.5 mg/dL (0.00-1.00); Blood Urea Nitrogen 8 mg/dL (7-18); Carbon Dioxide 29 mmol/L (21-32); Chloride 103 mmol/L (98-108); Cholesterol 165 mg/dL (0-200); Estimated Glomerular Filt Rate 59; Glucose 93 mg/dL (70-99); HDL Direct 70 mg/dL (40-60); LDL Cholesterol Calculated 68 mg/dL (<130); Osmolality Calculated 288 mOsm/kg (285-295); Sodium 140 mmol/L (136-145); Total Protein 6.9 g/dL (6.4-8.2); Triglycerides 136 mg/dL (0-150)
[2022-07-20 09:29] LABS: Thyroid Stimulating Hormone Reflex 2.04 u/IU/mL (0.36-3.74)
[2022-07-22 12:08] LABS: Vitamin D 25 Hydroxy 80 ng/mL (30-100)
== END 2022-07-20 08:31 | disposition home or self-care (01) ==
LOC: CHSLAB 08:34
PROVIDERS: PCP Family Medicine; Visit Provider Family Medicine
DX: E78.2 Mixed hyperlipidemia (principal); R53.83 Other fatigue; E55.9 Vitamin D deficiency, unspecified; D64.9 Anemia, unspecified
CPT/HCPCS: 36415; 80053; 80061; 82306; 84443; 85027

== ENCOUNTER 2022-11-20 14:10 | Outpatient (CLI) | payer MEDICARE, SELFPAY ==
--- NOTE | 2022-11-20 14:17 | ECHO_ITS ---
Patient Info Name: Rachael Thompson Age: 77 years : 1945 Gender: Female Ht: 62 in Wt: 120 lbs BSA: 1.55 m2 HR: 59 bpm BP: 117 / 80 mmHg Technical Quality: Good Exam Date: 11/20/2022 3:11 PM Exam Location: [facility] Patient Status: Outpatient Admit Date: 11/20/2022 Staff Ordering Physician: Romain Price DO Lay Out Carpenter: Tyrell Xiong RDCS, RT Attending Provider: Romain Price DO Referring Physician: Albert GREEN; Exam Type: CA echo doppler color flow Study Info Indications R01.1 - Cardiac murmur, unspecified Complete two-dimensional, color flow and Doppler transthoracic echocardiogram is performed. Strain analysis performed. Summary 1. Complete two-dimensional, color flow and Doppler transthoracic echocardiogram is performed. 2. Left ventricular chamber dimension is normal. 3. Left ventricular systolic function is normal, estimated at 55-60%. 4. There is mildly increased left ventricular wall thickness. 5. Left ventricular septal wall motion is abnormal with septal motion related to bundle branch block. 6. The left ventricular diastolic function is grade I diastolic dysfunction. 7. E/e' 11 is mildly elevated. 8. Global longitudinal strain is abnormal at -15.9%. 9. There is moderate aortic valve sclerosis. 10. There is mild aortic valve stenosis with a peak velocity of 213 cm/s, mean gradient of 8 mmHg, and aortic valve area of 1.4 cm2. 11. There is mild mitral valve regurgitation. 12. There is trace tricuspid valve regurgitation. 13. No pulmonary hypertension, estimated pulmonary arterial systolic pressure is 31 mmHg. Left Ventricle E/e' 11 is mildly elevated. Global longitudinal strain is abnormal at -15.9%. Left ventricular chamber dimension is normal. Left ventricular systolic function is normal, estimated at 55-60%. There is mildly increased left ventricular wall thickness. Left ventricular septal wall motion is abnormal with septal motion related to bundle branch block. The left ventricular diastolic function is grade I diastolic dysfunction. Right Ventricle Right ventricular systolic function is normal and with normal TAPSE 2.0 cm. Right ventricular chamber dimension is normal. Left Atria Left atrial chamber dimension is normal. Right Atria Right atrial chamber dimension is normal. Aortic Valve The aortic valve is trileaflet. There is moderate aortic valve sclerosis. There is mild aortic valve stenosis with a peak velocity of 213 cm/s, mean gradient of 8 mmHg, and aortic valve area of 1.4 cm2. There is no aortic valve regurgitation. Pulmonic Valve There is no pulmonic regurgitation. Mitral Valve There is no mitral valve stenosis. There is mild mitral valve regurgitation. Tricuspid Valve There is trace tricuspid valve regurgitation. No pulmonary hypertension, estimated pulmonary arterial systolic pressure is 31 mmHg. Pericardium/Pleural There is no pericardial effusion. Inferior Vena Cava Normal inferior vena cava with >50% collapse upon inspiration consistent with normal right atrial pressure, 5 mmHg. Aorta The aortic root size at the sinus of Valsalva is normal. Left Ventricular Outflow Tract Name Value Normal LVOT 2D LVOT Diameter 2.0 cm
== END 2022-11-20 14:11 | disposition home or self-care (01) ==
PROVIDERS: PCP Family Medicine; Visit Provider Internal Medicine Cardiovascular Disease
DX: I08.3 Combined rheumatic disorders of mitral, aortic and tricuspid valves (principal)
CPT/HCPCS: 93306

== ENCOUNTER 2022-12-08 12:42 | Observation (INO) | payer MEDICARE, SELFPAY ==
[2022-12-08] VITALS (8 sets, daily range): BP systolic 158–190; BP diastolic 74–92; PULSE 69–85; RESP 12–21; TEMP 36.3–37.4; O2SAT 94–98
--- NOTE | ~2022-12-08 | XR_ITS ---
EXAMINATION: XR hip RT 2V w AP pelvis DATE: 12/08/2022 15:39 INDICATION: Right hip pain. TECHNIQUE: An anteroposterior view of the pelvis and 2 views of right hip were obtained. COMPARISON: Pelvis and hip radiographs 11/28/2021 FINDINGS: There is an intertrochanteric fracture of proximal right femur status post open reduction i nternal fixation with antegrade intramedullary philippe, distal interlocking screw, and femoral head/neck screw. No periprosthetic lucency to suggest loosening or infection. There is mild osteoarthritis of t he hips. There is a stent in right common iliac artery. IMPRESSION: 1. Subacute fracture of proximal right femur status post reduction internal fixation. 2. Mild osteoarthritis of the hips. Reviewed, dictated and finalized at location A. ICE OR WORK DISPATCHER IMPRESSION: 1. Subacute fracture of proximal right femur status post reduction internal fix ation. 2. Mild osteoarthritis of the hips.
--- NOTE | ~2022-12-08 | XR_ITS ---
EXAMINATION: XR shoulder RT min 2V DATE: 12/08/2022 15:38 INDICATION: Right shoulder pain. TECHNIQUE: 4 views of right shoulder were obtained. COMPARISON: None. FINDINGS: Bone alignment is normal. No fracture. There is mild osteoarthritis of glenohumeral joint a nd acromioclavicular joint. There is mild calcific tendinitis of the rotator cuff. IMPRESSION: 1. Mild polyarticular osteoarthritis. 2. Mild calcific tendinitis of the rotator cuff. Reviewed, dictated and finalized at location A. ARCH DIRECTOR
--- NOTE | ~2022-12-08 | XR_ITS ---
EXAMINATION: XR chest 2V DATE: 12/08/2022 14:25 INDICATION: Weakness. Left-sided chest pain. TECHNIQUE: Frontal and lateral views of the chest were obtained. COMPARISON: Chest one view 11/28/2021 FINDINGS: There are interstitial opacities in the lower lung zones. No pleural effusion or pneumothor ax. The heart size is normal. IMPRESSION: 1. Interstitial opacities in the lower lung zones, consistent with atelectasis/scarring or less likel y mild pulmonary edema. Reviewed, dictated and finalized at location A. LITIES DIRECTOR IMPRESSION: 1. Interstitial opacities in the lower lung zones, consistent with atelectasis/ scarring or less likely mild pulmonary edema.
--- NOTE | 2022-12-08 12:49 | ECG_ITS ---
Measurements Intervals [place] Rate: 82 P: 52 AK: 164 QRS: 29 QRSD: 142 T: 176 QT: 368 QTc: 430 Interpretive Statements SINUS RHYTHM LEFT BUNDLE BRANCH BLOCK BASELINE ARTIFACT- I, II, AVR, AVL ABNORMAL ECG COMPARED TO ECG 12/01/2021 09:50:12 NO SIGNIFICANT CHANGES Electronically Signed On 12-08-2022 13:04:48 REORDERING CLERK by Romain Price D.O.
[2022-12-08 13:39] LABS: Basophils Absolute Auto 0.1 K/mm3 (0.0-0.1); Basophils Percent Auto 0.4 % (0.2-1.2); Eosinophils Percent Auto 0.2 % (0-4.4); Hematocrit 39.1 % (37.0-47.0); Hemoglobin 13.1 g/dL (12.0-15.0); Immature Granulocyte Absolute 0.13 K/mm3 (0.00-0.031); Immature Granulocyte Percent A 0.9 % (0-0.5); Lymphocytes Absolute Auto 1.06 K/mm3 (0.9-3.2); Lymphocytes Percent Auto 7.4 % (18.3-44.2); Mean Corpuscular HGB Conc 33.5 g/dl (32-36); Mean Corpuscular Hemoglobin 29.2 pg (26-34); Mean Corpuscular Volume 87.1 fl (80-100); Monocytes Absolute Auto 1.4 K/mm3 (0.1-0.6); Neutrophils Absolute Auto 11.5 K/mm3 (1.3-6.7); Neutrophils Percent Auto 81.1 % (45.5-73.1); Platelet Count Result 329 k/mm3 (150-375); Red Blood Count 4.49 M/mm3 (4.2-5.4); Red Cell Distribution Width 14.7 % (11.5-14.5); White Blood Count 14.2 K/mm3 (4.5-10.0)
[2022-12-08 14:18] LABS: Appearance Urine Slightly Cloudy (Clear); Bilirubin Urine Negative (Negative); Blood Urine 2+ (Negative); Color Urine Yellow (Yellow); Glucose Urine UA Negative (Negative); Ketones Urine Negative (Negative); Leukocyte Esterase Ur Trace LEU/UL (Negative); Nitrate Urine Negative (Negative); Protein Urine 1+ mg/dL (Negative); pH Urine 5.5 (5.0-9.0)
[2022-12-08 14:23] LABS: Bacteria Urine Trace /hpf; Mucus Urine Rare /lpf; Squamous Epithelial Cell Urine Occasional /hpf (Few)
[2022-12-08 14:23] LABS: Alanine Aminotransferase 14 U/L (6-35); Albumin Level 3.7 g/dL (3.5-5.1); Alkaline Phosphatase 87 U/L (38-126); Anion Gap 5 mmol/L (8-16); Aspartate Amino Transferase 23 U/L (14-36); Bilirubin,Total 0.6 mg/dL (0.2-1.3); Blood Urea Nitrogen 9 mg/dL (7-17); Calcium 8.9 mg/dL (8.4-10.2); Carbon Dioxide 26 mmol/L (22-30); Chloride 99 mmol/L (98-107); Estimated CRCL calculation 44 ml/min; Estimated Glomerular Filt Rate > 60; Glucose 143 mg/dL (65-110); Potassium 3.2 mmol/L (3.4-5.0); Sodium 130 mmol/L (137-145)
[2022-12-08 14:24] LABS: Add Urine Microscopic? YES
--- NOTE | 2022-12-08 16:18 | ED.WEAKNESS ---
HPI - Weakness General Chief complaint: Weakness Stated complaint: Generalized weakness Time Seen by Provider: 12/08/22 12:54 History of Present Illness HPI Narrative: 77-year-old female with hip surgery months ago who after coming home from rehab, has been having increasing weakness, per patient and her at bedside, she has been having more pain in her right shoulder and hip, and consequently she has not been able to get out of bed as much, and per , the last 2 weeks has been much worse, to the point where she is in bed about 20 hours a day, does not eat, and today would not even get up with her walker. He is also worried that she has been forgetting things more often. Related Data Home Medications Medication Instructions Recorded Confirmed omega-3 fatty acids 1,000 mg 1,000 mg PO HS 08/20/20 11/02/22 capsule (Fish Oil Concentrate) Allergies Allergy/AdvReac Type Severity Reaction Status Date / Time No Known Allergies Allergy Mild NONE Verified 11/02/22 14:23 Review of Systems Review of Systems: CONST: No fever. HEENT: No sore throat C/V: No chest pain RESP: No cough GI: Poor appetite : No dysuria. M/S: Right shoulder and hip pain SKIN: No rash. NEURO: [No headache or focal numbness or weakness] PSYCH: Feeling down PMFSH Past Medical History Medical History Essential hypertension Mixed hyperlipidemia Osteoarthritis Osteoporosis Peripheral vascular disease Tobacco abuse Transient ischemic attack Vitamin B12 deficiency Vitamin D deficiency Surgical History Surgical History History of appendectomy History of arthroscopy of left knee History of tonsillectomy History of tubal ligation History of vascular surgery (2007) Right common iliac artery stent. Family History Family History Sibling Depression Patient's sister is Father Family history of emphysema Mother Family history of coronary artery disease Other Hypertension Social History Social History Social History: Surrogate decision maker: Martin Thompson, spouse. Code status: Full code. Smoking packs per day: 0.5 Smoking cigarettes per day: 10.0 Years smoked: 60 Smoking pack-years: 30.00 Smoking status: Current every day smoker Tobacco type: cigarettes Second hand tobacco smoke exposure: No Alcohol intake: never Substance use: never Substance use type: does not use Additional living arrangements comments: The patient lives with her in [place]. 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: No Exam Narrative: EXAMINATION OF ORGAN SYSTEMS/BODY AREAS: Constitutional: Vital signs per nursing GENERAL:[No acute distress, non-toxic appearing.] HEAD: Normal with no signs of head trauma. EYES: EOMI, conjunctiva normal ENT: Hearing grossly intact LUNGS: Nonlabored breathing. HEART: [Regular rate and rhythm] ABD: [Soft], [nontender to palpation] EXT: Some tenderness to palpation to right shoulder and right hip; strength in arms and legs slightly diminished on right side from pain SKIN: [No rashes or lesions.] NEURO: [Alert and oriented x 3.] PSYCH: Flat affect Course Vital Signs Vital signs: Vital Signs Temperature 99.3 F 12/08/22 12:52 Pulse Rate 82 12/08/22 12:52 Respiratory Rate 15 12/08/22 12:52 Blood Pressure 190/92 H 12/08/22 12:52 Pulse Oximetry 95 12/08/22 12:52 Oxygen Delivery Room Air 12/08/22 12:52 Temperature 99.3 F 12/08/22 12:52 Pulse Rate 85 12/08/22 13:01 Respiratory Rate 21 H 12/08/22 13:01 Blood Pressure 184/89 H 12/08/22 13:01 Pulse Oximetry 95 12/08/22 12:52 Oxygen Delivery Room Air 12/08/22 12:52 MDM - Weakness MDM Narrative Medical decision
[2022-12-08 16:31] LABS: Thyroid Stimulating Hormone Reflex 0.367 uIU/mL (0.465-4.68)
--- NOTE | 2022-12-08 16:42 | PCCCNOTE ---
Addendum entered by Ally Munoz RN 12/08/22 17:05: PASSR completed, No Level II required. PT/OT ordered, Fax'd referral to [facility] at [phone]. is concerned about active covid at [facility], did not send referral at this time. Advised that care coordination to follow up with [facility] and [facility] in the AM. Discussed with patient and to review list of skilled facilities for additional choices. Original Note: Late entry: Phone call received from Dr. Nixon about half-way placement for patient. Met w/ patient and in H3. Had hip replacement followed by SNF at [facility] in [place] and dc'd in December of last year, did well with walker until Sep and noticed some weakness but still able to use walker and do ADLs with husbands help. Last two weeks an increase in weakness and unable to get out of bed and decreased PO intake. Patient and feel that if she has some more rehab she could get back home. Contacted Janae at [facility] as first choice per family, provided V Number, unsure if hospitalist could accept tonight but will be in touch. Called to [facility] s/w Brittany, they do have female beds but want to know vaccine status for covid and family should be aware that there is active covid in the building. Called to [facility] in [place], they are not accepting new patients due to staffing ratios. Called to [facility] in [place], the admissions intake personel had left for the day but we can send referral for be reviewed in AM. Updated Dr. Nixon and family.
[2022-12-08] MEDS: ACETAMINOPHEN 500 MG TABLET 1000 MG PO (17:09)
[2022-12-08] MEDS: LACTATED RINGERS 1,000 ML 999 ML IV CONT (17:09)
[2022-12-08] MEDS: POTASSIUM CHLORIDE 20 MEQ PACKET (FOR LIQUID) 40 MEQ PO (17:10)
[2022-12-08 17:15] LABS: Influenza A QL RT-PCR Negative (Negative); Influenza B QL RT-PCR Negative (Negative); RSV RNA, RT-PCR Negative (Negative); SARS-CoV-2 RNA PCR Negative
[2022-12-08 17:45] LABS: Free T4 Free Thyroxine Reflex 1.32 ng/dL (0.78-2.19)
--- NOTE | 2022-12-08 17:45 | PM.IMHP ---
H&P: HPI History of Present Illness Date/Time: 12/08/22 17:45 Chief Complaint: Weakness and right shoulder pain. Narrative: This is a 77-year-old female smoker with hypertension, hyperlipidemia, peripheral arterial disease who presented to the emergency department from home for evaluation of generalized weakness and right shoulder pain. She was admitted to the hospital in November 2021 with a right hip fracture following a fall in her garage, possible syncopal episode. The fracture was repaired and she has been ambulating with a walker since that time. Over the last 4 weeks or so she has been having increasing difficulties getting up with her walker due to pain in her right neck and shoulder. She has a difficult time explaining the pain that she is having but reports that she frequently has spasms for which she has been using a heating pad and taking acetaminophen with some benefit. The pain has gotten progressively worse as the weeks have gone on and is now to the point where she can barely lift up her right arm. She has also been having pain in the right hip with similar symptoms though not near as severe. Her appetite has not been good and she has been progressively losing weight. She has not had any recent falls. She denies numbness and tingling in the arm. She is able to move it but states that her movement is limited due to the pain. She has not had any neurologic symptoms and specifically denies vertigo, visual changes, facial droop, difficulty speaking and swallowing, coordination issues, focal weakness, or paresthesias. She has not had fever, chills, or sweats. No recent cold or flu symptoms. No history of venous thromboembolism or autoimmune disease. She denies headaches and jaw claudication. Blood pressure was 190/92 on arrival to the ED. Labs were significant for a WBC of 14.2, sodium 130, potassium 3.2, CRP 20.8. Urine was not consistent with acute infection. She tested negative for influenza, RSV, and COVID. Chest x-ray showed interstitial opacities in lower lung zones consistent with atelectasis/scarring. Right shoulder x-ray showed mild polyarticular osteoarthritis and mild calcific tendinitis of the rotator cuff. Right hip x-ray shows an intact open reduction internal fixation of an intertrochanteric fracture. She is being admitted in this setting for replacement of electrolytes, PT/OT consultation, and further workup regarding leukocytosis and elevated CRP. Review of Systems Review of Systems: Twelve systems were reviewed and are negative except for as per HPI. [facility] Past Medical History Medical History (Updated 12/08/22 @ 23:54 by Cassie Garza PA-C) Essential hypertension Mild aortic stenosis Mixed hyperlipidemia Osteoarthritis Osteoporosis Peripheral vascular disease Tobacco abuse Transient ischemic attack Vitamin B12 deficiency Vitamin D deficiency Surgical History Surgical History History of appendectomy History of arthroscopy of left knee History of tonsillectomy History of tubal ligation History of vascular surgery (2007) Right common iliac artery stent. Family History Family History Sibling Depression Patient's sister is Father Family history of emphysema Mother Family history of coronary artery disease Other Hypertension Social History Social History Social History: Surrogate decision maker: Martin Thompson, spouse. Code status: Full code. Smoking packs per day: 0.5 Smoking cigarettes per day: 10.0 Years smoked: 50 Smoking pack-years: 25.00 Smoking status: Current every day smoker Tobacco type: cigarettes Second hand tobacco smoke exposure: No Additional smoking assessment comments: 5 per day currently x 50 years Alcohol intake: never Substance use: never Substance use type:
[2022-12-08 20:02] LABS: CRP 20.8 mg/dL (<1.0); Creatine Kinase 40 U/L (30-135); Magnesium 1.8 mg/dL (1.6-2.3); Potassium 3.8 mmol/L (3.4-5.0)
--- NOTE | 2022-12-08 20:11 | PC.NURSE ---
This patient, Rachael Thompson, was admitted to [facility] Surg Room 317-01. Patient/family oriented to hospital policies and general routines including ID bracelet, bed and alarms, visiting hours, pain management, procedures, bathroom and other care routines, personal items, smoking policy, room service/diet, and visiting hours. Information on how to activate the Rapid Response Team has been discussed. Patient/Family are encouraged to report perceived risks to care and to ask questions if they do not understand what they are told or what they should do.
[2022-12-08 20:23] LABS: Total Triiodothyronine (T3) 0.74 NG/ML (0.97-1.69)
[2022-12-08 20:36] LABS: Erythrocyte Sedimentation Rate 67 mm/hr (0-20)
[2022-12-09] VITALS (7 sets, daily range): BP systolic 130–179; BP diastolic 71–86; PULSE 70–85; RESP 14–18; TEMP 36.1–36.4; O2SAT 93–97; BMI 20.6; BMI 20.9
[2022-12-09] MEDS: predniSONE 20 MG TABLET PO ×2 (00:27→09:32)
[2022-12-09] MEDS: METOPROLOL TARTRATE 50 MG TAB 100 MG PO ×3 (00:28→20:02)
[2022-12-09 06:05] LABS: Basophils Absolute Auto 0.1 K/mm3 (0.0-0.1); Basophils Percent Auto 0.4 % (0.2-1.2); Eosinophils Percent Auto 0.1 % (0-4.4); Hematocrit 41.1 % (37.0-47.0); Hemoglobin 13.5 g/dL (12.0-15.0); Immature Granulocyte Absolute 0.14 K/mm3 (0.00-0.031); Lymphocytes Absolute Auto 0.98 K/mm3 (0.9-3.2); Lymphocytes Percent Auto 7.2 % (18.3-44.2); Mean Corpuscular HGB Conc 32.8 g/dl (32-36); Mean Corpuscular Hemoglobin 29.2 pg (26-34); Mean Platelet Volume 9.2 fl (7.4-10.4); Monocytes Absolute Auto 0.7 K/mm3 (0.1-0.6); Monocytes Percent Auto 5.1 % (2.6-8.5); Neutrophils Absolute Auto 11.8 K/mm3 (1.3-6.7); Neutrophils Percent Auto 86.2 % (45.5-73.1); Platelet Count Result 328 k/mm3 (150-375); Red Blood Count 4.62 M/mm3 (4.2-5.4); Red Cell Distribution Width 14.8 % (11.5-14.5); White Blood Count 13.7 K/mm3 (4.5-10.0)
[2022-12-09 06:17] LABS: Anion Gap 7 mmol/L (8-16); Blood Urea Nitrogen 7 mg/dL (7-17); Calcium 8.6 mg/dL (8.4-10.2); Carbon Dioxide 25 mmol/L (22-30); Chloride 102 mmol/L (98-107); Creatine Kinase 38 U/L (30-135); Estimated CRCL calculation 51 ml/min; Estimated Glomerular Filt Rate > 60; Glucose 134 mg/dL (65-110); Magnesium 2.1 mg/dL (1.6-2.3); Potassium 3.5 mmol/L (3.4-5.0); Sodium 134 mmol/L (137-145)
[2022-12-09 06:54] LABS: Thyroid Stimulating Hormone Reflex 0.446 uIU/mL (0.465-4.68)
[2022-12-09 07:28] LABS: Free T4 Free Thyroxine Reflex 1.24 ng/dL (0.78-2.19)
--- NOTE | 2022-12-09 08:32 | PC.NURSE ---
message left on pharm line to clarify amlodipine dose, awaiting call back
[2022-12-09] MEDS: ENOXAPARIN 40 MG/0.4 ML SYRINGE SUB-Q (09:31)
[2022-12-09] MEDS: ASPIRIN 81 MG ENTERIC TABLET PO (09:32)
[2022-12-09] MEDS: cilostazoL 100 MG TABLET PO ×2 (09:32→17:12)
[2022-12-09] MEDS: lisinopriL 20 MG TABLET BY MOUTH (09:33)
[2022-12-09] MEDS: ACETAMINOPHEN 325 MG TABLET 650 MG PO ×2 (09:33→17:14)
[2022-12-09] MEDS: amLODIPine BESYLATE 2.5 MG TABLET PO ×2 (11:11→20:02)
--- NOTE | 2022-12-09 17:50 | PM.IMPN ---
Progress Note: A&P Assessment and Plan (1) Right shoulder pain: Code(s): M25.511 - Pain in right shoulder Status: Acute Assessment and Plan: Shoulder x-ray reviewed personally showing calcified tendinitis and agree with radiology assessment. Patient had been using heating pad for her neck and thinks that her shoulders is become stiff. She probably has a form of frozen shoulder. Doubt PMR. Will stop steroids. Continue PT OT. (2) Right hip pain: Code(s): M25.551 - Pain in right hip Status: Acute Assessment and Plan: Patient with right hip pain. She has history of right femur fracture status post repair. Imaging reviewed personally showing internal fixation with philippe and agree with radiology report. His range of motion is decent. Continue therapy. (3) UTI (urinary tract infection): Code(s): N39.0 - Urinary tract infection, site not specified Status: Acute Assessment and Plan: UA noted and not consistent with UTI but UCx positive for EColi. Will start abx. WBC unreliable now since she is on steroids. (4) Generalized weakness: Code(s): R53.1 - Weakness Status: Acute Assessment and Plan: Related to poor oral intake and weight loss. Supplements added. (5) Essential hypertension: Code(s): I10 - Essential (primary) hypertension Status: Acute Assessment and Plan: Patient's blood pressure was reviewed on 12/09 Blood pressure more elevated on admisison but better now Will continue current medications. Subjective Date/time seen: 12/09/22 17:50 Interval history: 77yo female here for right hip and shoulder pain Patient has had right shoulder pain for about 2 weeks and right hip pain for about a month. She has a history of right hip fracture that has been repaired. She is not been able to get in to see her doctor for these issues. She has been able to walk with a walker. Patient is requesting residential placement. Exam Narrative: Gen - NARD Chest - CTA bilaterally, nml RR CV - RRR S1/S2 Abd - Soft, NT/ND, Positive BS Ext - No pedal edema. Right shoulder ROM reasonable and able to get to 90 degrees abduction. Right hip ROM minimally restricted with internal and external rotation. Nml SLR Psych - Nml mood and affect Skin - Warm and dry Objective Data Vital Signs Vital Signs: Vital Signs - 24 hr 12/08/22 18:58 12/08/22 19:26 12/08/22 20:00 Temperature 98.3 F Pulse Rate 78 80 Respiratory Rate 18 18 Blood Pressure 158/82 H 158/82 H Pulse Oximetry 95 94 94 Oxygen Delivery Room Air 12/08/22 22:00 12/09/22 00:28 12/09/22 06:00 Temperature 97.4 F L 97.0 F L Pulse Rate 69 70 77 Respiratory Rate 20 18 Blood Pressure 168/85 H 179/86 H Pulse Oximetry 94 97 Oxygen Delivery 12/09/22 09:33 12/09/22 08:00 12/09/22 14:00 Temperature 97.5 F L Pulse Rate 70 71 Respiratory Rate 16 Blood Pressure 134/80 Pulse Oximetry 96 Oxygen Delivery Room Air 12/09/22 14:50 Temperature Pulse Rate Respiratory Rate Blood Pressure Pulse Oximetry Oxygen Delivery Room Air Intake/Output Intake/Output: Intake & Output 12/06/22 12/07/22 12/08/22 12/09/22 23:59 23:59 23:59 23:59 Intake Total 1000 680 Output Total 250 Balance 750 680 Meds/Results Medications: Active Medications Generic Name Dose Route Start Last Admin Trade Name Freq PRN Reason Stop Dose Admin Acetaminophen 650 mg 12/09/22 00:02 12/09/22 17:14 Acetaminophen 325 Mg Tablet PO 650 mg Q6H PRN Administration Mild Pain (1-3) or Fever Amlodipine Besylate 2.5 mg 12/09/22 21:00 Amlodipine Besylate 2.5 Mg Tablet PO HS IGNACIO Aspirin 81 mg 12/09/22 09:00 12/09/22 09:32 Aspirin 81 Mg Enteric Tablet PO 81 mg DAILY IGNACIO Administration Cilostazol 100 mg 12/09/22 09:00 12/09/22 17:12 Cilostazol 100 Mg Tablet PO 100 mg BID IGNACIO Administration En
[2022-12-09] MEDS: OMEGA 3 POLYUNSAT FATTY ACIDS 1 GM CAP PO (20:02)
[2022-12-10 06:00] VITALS: BP 132/68; PULSE 75; RESP 14; TEMP 36.1; O2SAT 97
[2022-12-10] MEDS: SENNA/DOCUSATE SODIUM TABLET 2 TAB PO (10:13)
[2022-12-10] MEDS: ASPIRIN 81 MG ENTERIC TABLET PO (10:13)
[2022-12-10] MEDS: cilostazoL 100 MG TABLET PO (10:13)
[2022-12-10] MEDS: ENOXAPARIN 40 MG/0.4 ML SYRINGE SUB-Q (10:13)
[2022-12-10] MEDS: lisinopriL 20 MG TABLET BY MOUTH (10:13)
[2022-12-10] MEDS: ACETAMINOPHEN 325 MG TABLET 650 MG PO (10:14)
[2022-12-10 10:43] VITALS: PULSE 89
[2022-12-10] MEDS: METOPROLOL TARTRATE 50 MG TAB 100 MG PO (10:43)
--- NOTE | 2022-12-10 13:48 | PCOTNOTE ---
Attempted to see patient this pm, however patient refused due to discharge. and patient report patient is going home with home health.
--- NOTE | 2022-12-10 14:31 | PM.DS ---
DS: Admitting Diagnosis Discharge Date 12/10/22 Admitting Diagnosis Weakness and right shoulder pain DS: Discharge Diagnosis Discharge Diagnosis (1) Right shoulder pain: Code(s): M25.511 - Pain in right shoulder Status: Acute (2) Right hip pain: Code(s): M25.551 - Pain in right hip Status: Acute (3) UTI (urinary tract infection): Code(s): N39.0 - Urinary tract infection, site not specified Status: Acute (4) Generalized weakness: Code(s): R53.1 - Weakness Status: Acute (5) Essential hypertension: Code(s): I10 - Essential (primary) hypertension Status: Acute DS: Summary Hospital Course Reason for hospitalization: 77yo female here for right hip and shoulder pain. Hospital Course: Shoulder x-ray reviewed personally showing calcified tendinitis and agree with radiology assessment.? Patient had been using heating pad for her neck and thinks that her shoulders has become stiff.?Doubt PMR so steroids stopped. She worked with PT/OT. We used heat to the shoulder. Pain improved but still stiff. Patient with right hip pain.? She has history of right femur fracture status post repair.? Imaging reviewed personally showing internal fixation with philippe and agree with radiology report.?Her range of motion was good. She was able to ambulate and this issue improved. UA was not consistent with UTI but UCx positive for EColi. No dysuria or hematuria. She was started on abx. Suspected some of her weakness was related to the UTI. she had clinical improvement. She did well enough that she did not need rehab. She overall did well and was able be discharged home on 12/10/2022. Status at Discharge Cognitive/behavioral status at discharge: stable Time Spent with Patient Time attestation: Total time spent providing and/or coordinating discharge services: 35 minutes Time spent: Greater than 30 minutes Exam Narrative: Gen - NARD Chest - CTA bilaterally, nml RR CV - RRR S1/S2 Abd - Soft, NT/ND, Positive BS Ext - No pedal edema. Psych - Nml mood and affect Skin - Warm and dry DS: Data Data Completed and Pending Labs on day of discharge: Preliminary micro results at discharge 12/08/22 19:27 Blood Culture - Preliminary Blood 12/08/22 19:33 Blood Culture - Preliminary Blood Discharge Plan Discharge Attending physician on discharge: Ayan Stroud Discharging Clinician: Ayan Stroud Anticipated Discharge Date/Time: 12/10/22 14:37 Patient Disposition: Home Health Service Activity: as tolerated Diet: heart healthy Discharge Instructions: Per Care Coordination Patient has been arranged to have [facility] for RN, PT, OT [phone] Please complete your antibiotic course even if you are starting to feel well. Take precautions to avoid falls. Rise slowly from a lying or sitting position. Pause before standing or walking. Contact your doctor or call 911 and come to the Emergency Room if you have increasing shoulder pain or other worrisome symptoms. Avoid NSAIDs (ibuprofen, naproxen, Aleve). Tylenol is safe to take. Follow-up with your primary care provider in 1-2 weeks. Please call for appointment. Continue to use heat to the right shoulder with gentle range of motion exercises. Thank you for using [facility] for your health care needs. Patient Instructions: Antibiotic Form Stand Alone Forms: General Discharge Information Follow-up/Referrals: Natalie Flores MD [Primary Care Provider] - Call for Appointment Discharge Medications: New cefdinir 300 mg capsule 300 mg PO Q12H Qty: 8 0RF Continued omega-3 fatty acids [Fish Oil Concentrate] 1,000 mg capsule 1,000 mg PO HS amlodipine 2.5 mg tablet See Rx Instructions .ROUTE .COMPLEX Qty: 90 2RF Dose Instruction: TAKE 1 TABLET BY MOUTH DAILY AT BEDTIME Rx Instructions: TAKE 1 TABLET BY MOUTH DAILY AT BEDTIME l
== END 2022-12-10 15:13 | disposition home health service (06) ==
LOC: ANHED 16:54 → ANH3MEDSUR 12-10 08:41
PROVIDERS: Physician Assistant; Admitting Provider Student in an Organized Health Care Education/Training Program; Emergency Provider Emergency Medicine; PCP Family Medicine; Visit Provider Internal Medicine
DX: M75.31 Calcific tendinitis of right shoulder (principal); M25.551 Pain in right hip; N39.0 Urinary tract infection, site not specified; R53.1 Weakness; B96.20 Unspecified Escherichia coli [E. coli] as the cause of diseases classified elsewhere; Z99.89 Dependence on other enabling machines and devices; R63.0 Anorexia; Z68.21 Body mass index [BMI] 21.0-21.9, adult; I10 Essential (primary) hypertension; E78.5 Hyperlipidemia, unspecified; E78.2 Mixed hyperlipidemia; M15.9 Polyosteoarthritis, unspecified; Z20.822 Contact with and (suspected) exposure to COVID-19; I44.7 Left bundle-branch block, unspecified; I73.9 Peripheral vascular disease, unspecified; R82.90 Unspecified abnormal findings in urine; R91.8 Other nonspecific abnormal finding of lung field; R63.4 Abnormal weight loss; R94.31 Abnormal electrocardiogram [ECG] [EKG]; E55.9 Vitamin D deficiency, unspecified; E87.8 Other disorders of electrolyte and fluid balance, not elsewhere classified; E53.8 Deficiency of other specified B group vitamins; Z95.820 Peripheral vascular angioplasty status with implants and grafts; F17.210 Nicotine dependence, cigarettes, uncomplicated; Z79.1 Long term (current) use of non-steroidal anti-inflammatories (NSAID); Z79.82 Long term (current) use of aspirin; Z79.899 Other long term (current) drug therapy; Z86.73 Personal history of transient ischemic attack (TIA), and cerebral infarction without residual deficits; Z87.81 Personal history of (healed) traumatic fracture; Z82.49 Family history of ischemic heart disease and other diseases of the circulatory system; D72.829 Elevated white blood cell count, unspecified
CPT/HCPCS: 36415; 51701; 71046; 73030; 73502; 80048; 80053; 81001; 82550; 83735; 84132; 84439; 84443; 84480; 85025; 85652; 86140; 86430; 87040; 87077; 87086; 87186; 87637; 93005; 96360; 96361; 96365; 96372; 97165; 99285; A9270; G0378; J0696; J1650; J7120; J7512

== ENCOUNTER 2022-12-18 14:26 | Inpatient (IN) | payer MEDICARE, SELFPAY ==
[2022-12-18] VITALS (16 sets, daily range): BP systolic 132–201; BP diastolic 71–111; PULSE 84–120; RESP 12–28; TEMP 36.6–36.7; O2SAT 89–94; BMI 19.7
--- NOTE | ~2022-12-18 | XR_ITS ---
EXAMINATION: XR chest 1V portable DATE: 12/18/2022 14:42 INDICATION: Weakness. TECHNIQUE: A single frontal view of the chest was obtained. COMPARISON: Chest 2 views 12/08/22 FINDINGS: There is mild atelectasis in the lower lung zones. No pleural effusion or pneumothorax. The heart size is normal. IMPRESSION: 1. Mild atelectasis in the lower lung zones. Reviewed, dictated and finalized at location A. 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
--- NOTE | ~2022-12-18 | CT_ITS ---
EXAMINATION: CT abdomen pelvis w con DATE: 12/18/2022 16:02 INDICATION: Leukocytosis. Abdominal pain. Confusion. TECHNIQUE: Computed tomography (CT) of the abdomen and pelvis was performed with 100 mL Omnipaque 350 intravenous contrast. Automated exposure control and iterative reconstruction technique were employe d. The dose-length product was 301.25 mGy-cm. COMPARISON: CTA AIF 11/02/06 FINDINGS: The visualized portions of the lung bases demonstrate mild atelectasis. There is mucous plu gging in right lower lobe. No pleural effusion. The heart size is normal. No pericardial effusion. Th e liver, gallbladder, spleen, pancreas, adrenal glands, and kidneys are normal. There are no dilated loops of bowel. The appendix is not visualized. There is calcified atherosclerosis of the aorta and m any of the other arteries. There is a chronic totally occluded stent in right common iliac artery. Th ere is chronic total occlusion of right external iliac artery. There is reconstitution of flow in rig ht common femoral artery from collaterals. There is instrumentation of proximal right femur. There is mild thoracolumbar spondylosis. IMPRESSION: 1. Mucous plugging in right lung lower lobe. Reviewed, dictated and finalized at location A. 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
--- NOTE | 2022-12-18 14:30 | ED.WEAKNESS ---
HPI - Weakness General Chief complaint: Weakness Stated complaint: weakness Time Seen by Provider: 12/18/22 14:29 Source: patient, EMS, RN notes reviewed and other ( Home health nurse) Mode of arrival: EMS Limitations: altered mental status ( increased confusion) History of Present Illness Complaint: generalized weakness Onset (ago): day(s) (4) Duration: progressively worsening Location: generalized Migration: none Severity: moderate Relieving factors: none Exacerbating factors: movement and exertion Context: history of similar Associated symptoms: confusion Related Data Home Medications Medication Instructions Recorded Confirmed omega-3 fatty acids 1,000 mg 1,000 mg PO HS 08/20/20 12/18/22 capsule (Fish Oil Concentrate) Allergies Allergy/AdvReac Type Severity Reaction Status Date / Time No Known Allergies Allergy Mild NONE Verified 12/18/22 14:45 Review of Systems Review of Systems: All systems reviewed & are unremarkable except as noted in HPI and below Constitutional: Constitutional: Reports as per HPI, Denies chills and Denies fever(s) Cardiovascular: Cardiovascular: Denies chest pain Respiratory: Respiratory: Reports cough ( not new) and Denies dyspnea Gastrointestinal: Gastrointestinal: Denies diarrhea, Denies nausea and Denies vomiting Neurologic: Reports confusion PMFSH Past Medical History Medical History Essential hypertension Left bundle branch block Mild aortic stenosis Mixed hyperlipidemia Osteoarthritis Osteoporosis Peripheral vascular disease Systolic dysfunction Tobacco abuse Transient ischemic attack Vitamin B12 deficiency Vitamin D deficiency Surgical History Surgical History History of appendectomy History of arthroscopy of left knee History of tonsillectomy History of tubal ligation History of vascular surgery (2007) Right common iliac artery stent. Family History Family History Sibling Depression Patient's sister is Father Family history of emphysema Mother Family history of coronary artery disease Other Hypertension Social History Social History Social History: Surrogate decision maker: Martin Thompson, spouse. Code status: Full code. Smoking packs per day: 0.5 Smoking cigarettes per day: 10.0 Years smoked: 50 Smoking pack-years: 25.00 Smoking status: Current every day smoker Tobacco type: cigarettes Second hand tobacco smoke exposure: No Additional smoking assessment comments: 5 per day currently x 50 years Alcohol intake: never Substance use: never Substance use type: does not use Lack of Transportation: No Lack of Food: Never True Current Housing: I Have Housing Concerned About Future Housing: No Difficulty Paying Gas/Electric Bills: No Difficulty Paying for Meds: No Currently Unemployed: No Education: Decline to Answer Difficulty w/ Childcare or Family Care: No Living arrangements: with family Additional living arrangements comments: The patient lives with her in [place]. 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: No Exam Const: General: no acute distress, alert and ill appearing chronically Nutritional Appearance: thin HENMT: Head: normal to inspection Ears: external ears normal Face/Nose/Sinus: Normal external nose present Face and sinus: normal facial exam Mouth: Yes dry mucous membranes Eyes: Conjunctivae: conjunctivae normal Pupils: Equal, round and reactive pupils present EOM: EOMs intact bilaterally Neck: Neck: normal visual inspection Resp: Effort & Inspection: normal respiratory effort Auscultation: clear to auscultation bilaterally ( lungs alvarado
[2022-12-18 14:59] LABS: Basophils Absolute Auto 0.06 K/mm3 (0.00-0.10); Basophils Percent Auto 0.3 % (0.0-1.0); Eosinophils Absolute Auto 0.04 K/mm3 (0.02-0.50); Eosinophils Percent Auto 0.2 % (1.0-6.0); Hematocrit 38.7 % (35.0-42.0); Hemoglobin 12.6 g/dL (11.7-13.8); Immature Granulocyte Absolute 0.21 K/mm3 (0.00-0.00); Immature Granulocyte Percent A 1.2 % (0.0-0.0); Immature Platelet Fraction Pct 0.9 % (1.0-7.0); Lymphocytes Absolute Auto 1.57 K/mm3 (1.10-4.50); Mean Corpuscular HGB Conc 32.6 g/dL (32.0-36.0); Mean Corpuscular Volume 89.2 fL (78.0-102.0); Mean Platelet Volume 8.9 fl (9.2-11.8); Monocytes Percent Auto 9.2 % (2.0-11.0); Neutrophils Absolute Auto 13.9 K/mm3 (1.7-7.2); Neutrophils Percent Auto 80.1 % (50.0-70.0); Platelet Count Result 589 K/mm3 (150-420); Red Blood Count 4.34 M/mm3 (4.20-5.40); Red Cell Distribution Width 15.1 % (11.6-14.4); White Blood Count 17.4 K/mm3 (4.8-10.8)
[2022-12-18 15:14] LABS: Add Urine Microscopic? YES; Appearance Urine Clear (Clear); Bilirubin Urine 1+ (Negative); Blood Urine Negative (Negative); Color Urine Yellow (Yellow); Glucose Urine UA Negative (Negative); Ketones Urine 1+ (Negative); Leukocyte Esterase Ur Negative LEU/UL (Negative); Nitrate Urine Negative (Negative); Protein Urine Trace (Negative); Specific Grav Ur >= 1.030 (1.010-1.020); Urobilinogen Urine 0.2 mg/dL (0.2-1.0); pH Urine 5.5 (5.0-8.0)
[2022-12-18 15:16] LABS: Influenza A QL RT-PCR Negative (Negative); Influenza B QL RT-PCR Negative (Negative); SARS-CoV-2 RNA PCR Negative (Negative)
[2022-12-18 15:20] LABS: Alanine Aminotransferase 16 U/L (14-59); Albumin Level 2.4 g/dL (3.4-5.0); Alkaline Phosphatase 95 U/L (46-116); Anion Gap 12 mmol/L (8-16); Aspartate Amino Transferase 14 U/L (15-37); Bilirubin,Total 0.4 mg/dL (0.00-1.00); Blood Urea Nitrogen 13 mg/dL (7-18); Calcium 9.2 mg/dL (8.5-10.1); Carbon Dioxide 26 mmol/L (21-32); Chloride 99 mmol/L (98-108); Estimated Glomerular Filt Rate > 60; Glucose 110 mg/dL (70-99); Magnesium 2.2 mg/dL (1.8-2.4); Osmolality Calculated 285 mOsm/kg (285-295); Potassium 3.9 mmol/L (3.5-5.1); Sodium 137 mmol/L (136-145); Total Protein 7.3 g/dL (6.4-8.2)
[2022-12-18 15:22] LABS: Amorphous Sediment Urine Few; RBC Urine None seen /hpf (0-2); Squamous Epithelial Cell Urine Rare /hpf (Few); WBC Urine None seen /hpf (0-3)
[2022-12-18 15:23] LABS: Bacteria Urine None seen /hpf
[2022-12-18 15:24] LABS: NT Pro B Type Natriuretic Pept 1770 pg/mL (0-450)
[2022-12-18 15:31] LABS: CRP > 25.0 mg/dL (0.0-0.9)
--- NOTE | 2022-12-18 16:44 | ECG_ITS ---
Measurements Intervals [place] Rate: 111 P: 87 [place]: 154 QRS: 70 QRSD: 136 T: 265 QT: 333 QTc: 454 Interpretive Statements SINUS TACHYCARDIA LEFT BUNDLE BRANCH BLOCK ABNORMAL ECG COMPARED TO ECG 12/08/2022 12:51:44 SINUS TACHYCARDIA NOW PRESENT Electronically Signed On 12-18-2022 17:34:37 WOOL PULLER by Romain Price D.O.
--- NOTE | 2022-12-18 17:04 | PC.NURSE ---
WAS ABLE TO GET MEDICATION BOTTLES FOR RN TO UPDATE MEDICATION LIST.
[2022-12-18] MEDS: SODIUM CHLORIDE 0.9% IV 1,000 ML 999 ML IV CONT (18:00)
[2022-12-18] MEDS: methylPREDNISolone SOD SUCC 125 MG VIAL 60 MG IV PUSH (18:07)
[2022-12-18] MEDS: cilostazoL 100 MG TABLET PO (18:07)
--- NOTE | 2022-12-18 18:30 | ADMGEN ---
This patient, Rachael Thompson, was admitted to 2nd Floor Room 207-1. Patient/family oriented to hospital policies and general routines including ID bracelet, bed and alarms, pain management, procedures, bathroom and other care routines, personal items, smoking policy, room service/diet, and visiting hours of 10am to 8pm, also aware of age limit for visitors to the floor, is taking home medications with him, pt has on gold wedding band, pt has attempted to urinate twice on commode since arriving on floor, PT JT has been in to see pt and perform a therapy eval Information on how to activate the Rapid Response Team has been discussed. Patient/Family are encouraged to report perceived risks to care and to ask questions if they do not understand what they are told or what they should do.
[2022-12-18] MEDS: IPRATROPIUM BR 0.02% INH SOLN 0.5 MG/2.5 ML VIAL INHALATION (18:38)
[2022-12-18] MEDS: OMEGA 3 POLYUNSAT FATTY ACIDS 1 GM CAP PO (20:20)
[2022-12-18] MEDS: METOPROLOL TARTRATE 50 MG TAB 100 MG PO (20:20)
[2022-12-18] MEDS: guaiFENesin 12 HR 600 MG TABCR 1200 MG PO (20:21)
[2022-12-18] MEDS: amLODIPine BESYLATE 2.5 MG TABLET PO (20:21)
[2022-12-19] VITALS (9 sets, daily range): BP systolic 128–137; BP diastolic 69–76; PULSE 72–104; RESP 16–18; TEMP 36.1–36.4; O2SAT 91–96
[2022-12-19] MEDS: methylPREDNISolone SOD SUCC 125 MG VIAL 60 MG IV PUSH ×4 (00:13→17:35)
[2022-12-19] MEDS: IPRATROPIUM BR 0.02% INH SOLN 0.5 MG/2.5 ML VIAL INHALATION ×3 (00:51→18:32)
[2022-12-19 05:11] LABS: Hematocrit 36.2 % (35.0-42.0); Hemoglobin 11.8 g/dL (11.7-13.8); Mean Corpuscular HGB Conc 32.6 g/dL (32.0-36.0); Mean Corpuscular Hemoglobin 29.1 pg (27.0-31.0); Mean Corpuscular Volume 89.4 fL (78.0-102.0); Mean Platelet Volume 8.8 fl (9.2-11.8); Platelet Count Result 467 K/mm3 (150-420); Red Blood Count 4.05 M/mm3 (4.20-5.40); Red Cell Distribution Width 15.1 % (11.6-14.4); White Blood Count 12.9 K/mm3 (4.8-10.8)
[2022-12-19 05:28] LABS: Alanine Aminotransferase 11 U/L (14-59); Albumin Level 1.9 g/dL (3.4-5.0); Alkaline Phosphatase 89 U/L (46-116); Anion Gap 11 mmol/L (8-16); Aspartate Amino Transferase 11 U/L (15-37); Bilirubin,Total 0.3 mg/dL (0.00-1.00); Blood Urea Nitrogen 11 mg/dL (7-18); Calcium 8.4 mg/dL (8.5-10.1); Carbon Dioxide 25 mmol/L (21-32); Chloride 102 mmol/L (98-108); Estimated CRCL calculation 42 ml/min; Estimated Glomerular Filt Rate > 60; Glucose 134 mg/dL (70-99); Magnesium 2.1 mg/dL (1.8-2.4); Osmolality Calculated 287 mOsm/kg (285-295); Potassium 4.1 mmol/L (3.5-5.1); Sodium 138 mmol/L (136-145); Total Protein 6.3 g/dL (6.4-8.2)
[2022-12-19] MEDS: ASPIRIN 81 MG ENTERIC TABLET PO (09:40)
[2022-12-19] MEDS: lisinopriL 20 MG TABLET PO (09:40)
[2022-12-19] MEDS: METOPROLOL TARTRATE 50 MG TAB 100 MG PO ×2 (09:40→20:35)
[2022-12-19] MEDS: cilostazoL 100 MG TABLET PO ×2 (09:41→17:36)
[2022-12-19] MEDS: ROSUVASTATIN 5 MG TABLET PO (09:41)
[2022-12-19] MEDS: ENOXAPARIN 40 MG/0.4 ML SYRINGE SUB-Q (09:41)
[2022-12-19] MEDS: guaiFENesin 12 HR 600 MG TABCR 1200 MG PO ×2 (09:41→20:34)
--- NOTE | 2022-12-19 10:40 | PM.IMHP ---
H&P: HPI History of Present Illness Date/Time: 12/19/22 10:40 Chief Complaint: weakness and confusion Narrative: this is a 77-year-old female presented to our ER for increased weakness and confusion. patient has a past medical history hypertension left bundle branch a ours most is hyperlipidemia, osteoarthritis osteoporosis, PVD systolic congestive heart failure, tobacco dependence, TIAs, vitamin B12 deficiency and vitamin-D deficiency. Apparently patient had a home health nurse visiting. The home health nurse noticed that the patient was becoming progressively weak and confused with each visit. This visit home health nurse was coming to the home to collect a urine sample for testing and noticed that the patient had worsened and [facility]. Patient's WBC 17.4, hemoglobin 12.6, hematocrit 38.7, platelets 589, BNP 1770,influenza COVID negative, sodium 137, potassium 3.9, BUN 13, creatinine 0.82, glucose 110 lactic acid 1.0, magnesium 2 2, total bilirubin 0.4, AST 14, ALT 16, CRP greater than 25, UA trace of protein ketones bilirubin, chest x-ray indicate mucous plugging in the right lower lobe EKG sinus tach with a rate of 111. Vital signs 97.1, 103, 17, 91% on room air, respiratory rate 17, blood pressure 137/76. Patient has been evaluated by our physical therapy is recommended that the patient transition to a swing bed and received physical therapy. The patient denies SOB, CP, palpitation, extremity numbness, lightheadedness, dizziness, constipation, diarrhea, chills, or fever. Review of Systems Review of Systems: A 14 organ system Review of Systems was performed and pertinent positives included in the HPI, otherwise remaining ROS is negative. [facility] Past Medical History Medical History Essential hypertension Left bundle branch block Mild aortic stenosis Mixed hyperlipidemia Osteoarthritis Osteoporosis Peripheral vascular disease Systolic dysfunction Tobacco abuse Transient ischemic attack Vitamin B12 deficiency Vitamin D deficiency Surgical History Surgical History History of appendectomy History of arthroscopy of left knee History of tonsillectomy History of tubal ligation History of vascular surgery (2007) Right common iliac artery stent. Family History Family History Sibling Depression Patient's sister is Father Family history of emphysema Mother Family history of coronary artery disease Other Hypertension Social History Social History Social History: Surrogate decision maker: Martin Thompson, spouse. Code status: Full code. Smoking packs per day: 0.5 Smoking cigarettes per day: 10.0 Years smoked: 50 Smoking pack-years: 25.00 Smoking status: Current every day smoker Tobacco type: cigarettes Second hand tobacco smoke exposure: No Additional smoking assessment comments: 5 per day currently x 50 years Alcohol intake: never Substance use: never Substance use type: does not use Lack of Transportation: No Lack of Food: Never True Current Housing: I Have Housing Concerned About Future Housing: No Difficulty Paying Gas/Electric Bills: No Difficulty Paying for Meds: No Currently Unemployed: No Education: Associate Degree Difficulty w/ Childcare or Family Care: No Living arrangements: with family Additional living arrangements comments: The patient lives with her in [place]. 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: No Meds Home Medications and Allergies Home Medications Medication Instructions Recorded Confirmed Type omega-3 fatty acids 1,000 mg 1,000 mg PO HS 08/20/20 12/18/22 History
[2022-12-19] MEDS: HYDROcodone/acetaminophen (*CRX) 5-325 MG TABLET 1 TAB PO (18:21)
[2022-12-19] MEDS: amLODIPine BESYLATE 2.5 MG TABLET PO (20:34)
[2022-12-19] MEDS: OMEGA 3 POLYUNSAT FATTY ACIDS 1 GM CAP PO (20:35)
[2022-12-19] MEDS: traZODone HCL 50 MG TABLET PO (20:35)
[2022-12-20] VITALS (11 sets, daily range): BP systolic 121–144; BP diastolic 54–75; PULSE 78–94; RESP 17–18; TEMP 36.1–36.4; O2SAT 93–98
[2022-12-20] MEDS: IPRATROPIUM BR 0.02% INH SOLN 0.5 MG/2.5 ML VIAL INHALATION ×4 (00:05→18:16)
[2022-12-20] MEDS: methylPREDNISolone SOD SUCC 125 MG VIAL 60 MG IV PUSH ×4 (00:28→17:37)
[2022-12-20 06:55] LABS: Hematocrit 34.6 % (35.0-42.0); Hemoglobin 11.1 g/dL (11.7-13.8); Immature Platelet Fraction Pct 1.4 % (1.0-7.0); Mean Corpuscular HGB Conc 32.1 g/dL (32.0-36.0); Mean Corpuscular Hemoglobin 28.4 pg (27.0-31.0); Mean Corpuscular Volume 88.5 fL (78.0-102.0); Mean Platelet Volume 9.6 fl (9.2-11.8); Platelet Count Result 622 K/mm3 (150-420); Red Blood Count 3.91 M/mm3 (4.20-5.40); Red Cell Distribution Width 15.1 % (11.6-14.4); White Blood Count 18.7 K/mm3 (4.8-10.8)
[2022-12-20 07:00] LABS: Magnesium 2.2 mg/dL (1.8-2.4)
--- NOTE | 2022-12-20 08:44 | WPDPN ---
Progress Note: A&P Assessment and Plan (1) Systolic dysfunction: Code(s): I51.9 - Heart disease, unspecified Status: Acute Assessment and Plan: BNP elevated chest x-ray does not indicate pulmonary edema (2) Left bundle branch block: Code(s): I44.7 - Left bundle-branch block, unspecified Status: Acute Assessment and Plan: Stable EKG indicates sinus tach with a rate of 111 and left BBB (3) Generalized weakness: Code(s): R53.1 - Weakness Status: Acute Assessment and Plan: possibly secondary to dehydration versus infection PT OT evaluation completed recommend rehab awaiting insurance approved (4) Vitamin B12 deficiency: Code(s): E53.8 - Deficiency of other specified B group vitamins Status: Acute Assessment and Plan: continue supplements (5) TIA (transient ischemic attack): Code(s): G45.9 - Transient cerebral ischemic attack, unspecified Status: Acute (6) Peripheral vascular disease: Code(s): I73.9 - Peripheral vascular disease, unspecified Status: Acute (7) Vitamin D deficiency: Code(s): E55.9 - Vitamin D deficiency, unspecified Status: Acute Assessment and Plan: continue supplements (8) Mixed hyperlipidemia: Code(s): E78.2 - Mixed hyperlipidemia Status: Acute Assessment and Plan: continue statins (9) Essential hypertension: Code(s): I10 - Essential (primary) hypertension Status: Acute Assessment and Plan: controlled continue amlodipine, lisinopril, and metoprolol vital signs ordered will adjust medication as needed (10) Elevated white blood cell count, unspecified: Code(s): D72.829 - Elevated white blood cell count, unspecified Status: Acute Assessment and Plan: etiology unknown WBC 17.4>12.9>18.7 PP pending continue Rocephin blood culture pending UA culture no growth patient afebrile lactic acid within normal limits CRP elevated COVID influenza negative Subjective Date/time seen: 12/20/22 08:44 Interval history: Patient is anxious to discharge home. Patient notes her pain is being controlled she slept well overnight if she is tolerating all her meals. I explained to patient that it was recommended by Physical therapy/ Occupational therapy that she received rehab. The patient denies SOB, CP, palpitation, extremity numbness, lightheadedness, dizziness, constipation, diarrhea, chills, or fever. Review of Systems Review of Systems: All systems reviewed & are unremarkable except as noted in HPI and below Exam Narrative: GENERAL: for Víctor female in no apparent distress. HEAD: normocephalic, atraumatic. EYES: PERRL. Sclera clear/white. Vision is grossly intact. EARS: External ears normal, auditory canals clear and without drainage, TMs normal without perforation. Hearing grossly intact. NOSE: External nose normal with no obvious nasal discharge, nares without redness, no rhinorrhea. THROAT: Mucous membranes moist, posterior pharynx clear. NECK: Neck supple, non-tender without lymphadenopathy, masses or thyromegaly. CARDIOVASCULAR: tachycardia and rhythm without murmurs, gallops, or rubs. RESPIRATORY: Clear to auscultation. Breath sounds equal bilaterally. No wheezes, rales, or rhonchi. GASTROINTESTINAL: Abdomen soft, non-tender, nondistended. Bowel sounds are active. No hepato-splenomegaly, or palpable masses. No guarding. SKIN: warm, intact with no suspicious lesions or rash, good texture and turgor. NEURO: awake, alert, and oriented to person, place and time. There were no obvious focal neurologic abnormalities. EXTREMITIES: Normal range of motion. No edema. No calf tenderness Objective Data Vital Signs Vital Signs: Vital Signs - 24 hr 12/19/22 09:40 12/19/22 12:00 12/19/22 16:00 Temperature 97.0 F L Pulse Rate 104 H 80 94 Respiratory Rate 17 Blood Pres
[2022-12-20] MEDS: ENOXAPARIN 40 MG/0.4 ML SYRINGE SUB-Q (09:44)
[2022-12-20] MEDS: ASPIRIN 81 MG ENTERIC TABLET PO (09:45)
[2022-12-20] MEDS: guaiFENesin 12 HR 600 MG TABCR 1200 MG PO ×2 (09:45→20:34)
[2022-12-20] MEDS: METOPROLOL TARTRATE 50 MG TAB 100 MG PO ×2 (09:45→20:32)
[2022-12-20] MEDS: ROSUVASTATIN 5 MG TABLET PO (09:45)
[2022-12-20] MEDS: cilostazoL 100 MG TABLET PO ×2 (09:46→17:37)
[2022-12-20] MEDS: lisinopriL 20 MG TABLET PO (09:47)
[2022-12-20] MEDS: traZODone HCL 50 MG TABLET 100 MG PO (20:34)
[2022-12-20] MEDS: OMEGA 3 POLYUNSAT FATTY ACIDS 1 GM CAP PO (20:34)
[2022-12-20] MEDS: amLODIPine BESYLATE 2.5 MG TABLET PO (20:34)
[2022-12-20] MEDS: HYDROcodone/acetaminophen (*CRX) 5-325 MG TABLET 1 TAB PO (20:34)
[2022-12-21] VITALS (9 sets, daily range): BP systolic 142–160; BP diastolic 63–80; PULSE 72–82; RESP 12–16; TEMP 36.4; O2SAT 94–96
[2022-12-21] MEDS: IPRATROPIUM BR 0.02% INH SOLN 0.5 MG/2.5 ML VIAL INHALATION ×4 (00:32→18:18)
[2022-12-21] MEDS: methylPREDNISolone SOD SUCC 125 MG VIAL 60 MG IV PUSH ×4 (00:42→17:22)
[2022-12-21 07:28] LABS: Hematocrit 33.1 % (35.0-42.0); Hemoglobin 10.7 g/dL (11.7-13.8); Immature Platelet Fraction Pct 0.9 % (1.0-7.0); Mean Corpuscular HGB Conc 32.3 g/dL (32.0-36.0); Mean Corpuscular Hemoglobin 28.6 pg (27.0-31.0); Mean Corpuscular Volume 88.5 fL (78.0-102.0); Mean Platelet Volume 8.8 fl (9.2-11.8); Platelet Count Result 585 K/mm3 (150-420); Red Blood Count 3.74 M/mm3 (4.20-5.40); White Blood Count 15.7 K/mm3 (4.8-10.8)
[2022-12-21 07:41] LABS: Alanine Aminotransferase 47 U/L (14-59); Alkaline Phosphatase 77 U/L (46-116); Anion Gap 7 mmol/L (8-16); Aspartate Amino Transferase 32 U/L (15-37); Bilirubin,Total 0.2 mg/dL (0.00-1.00); Blood Urea Nitrogen 33 mg/dL (7-18); Calcium 8.3 mg/dL (8.5-10.1); Carbon Dioxide 28 mmol/L (21-32); Chloride 103 mmol/L (98-108); Estimated CRCL calculation 31 ml/min; Estimated Glomerular Filt Rate 52; Glucose 123 mg/dL (70-99); Osmolality Calculated 294 mOsm/kg (285-295); Potassium 4.1 mmol/L (3.5-5.1); Sodium 138 mmol/L (136-145); Total Protein 5.7 g/dL (6.4-8.2)
[2022-12-21] MEDS: ENOXAPARIN 40 MG/0.4 ML SYRINGE SUB-Q (08:13)
[2022-12-21] MEDS: guaiFENesin 12 HR 600 MG TABCR 1200 MG PO ×2 (08:14→20:47)
[2022-12-21] MEDS: cilostazoL 100 MG TABLET PO ×2 (08:15→17:22)
[2022-12-21] MEDS: ASPIRIN 81 MG ENTERIC TABLET PO (08:15)
[2022-12-21] MEDS: lisinopriL 20 MG TABLET PO (08:15)
[2022-12-21] MEDS: METOPROLOL TARTRATE 50 MG TAB 100 MG PO ×2 (08:15→20:47)
[2022-12-21] MEDS: ROSUVASTATIN 5 MG TABLET PO (08:16)
--- NOTE | 2022-12-21 08:32 | WPDPN ---
Progress Note: A&P Assessment and Plan (1) Systolic dysfunction: Code(s): I51.9 - Heart disease, unspecified Status: Acute Assessment and Plan: BNP elevated chest x-ray does not indicate pulmonary edema (2) Left bundle branch block: Code(s): I44.7 - Left bundle-branch block, unspecified Status: Acute Assessment and Plan: Stable EKG indicates sinus tach with a rate of 111 and left BBB (3) Generalized weakness: Code(s): R53.1 - Weakness Status: Acute Assessment and Plan: possibly secondary to dehydration versus infection PT OT evaluation completed recommend rehab awaiting insurance approved (4) Vitamin B12 deficiency: Code(s): E53.8 - Deficiency of other specified B group vitamins Status: Acute Assessment and Plan: continue supplements (5) TIA (transient ischemic attack): Code(s): G45.9 - Transient cerebral ischemic attack, unspecified Status: Acute (6) Peripheral vascular disease: Code(s): I73.9 - Peripheral vascular disease, unspecified Status: Acute (7) Vitamin D deficiency: Code(s): E55.9 - Vitamin D deficiency, unspecified Status: Acute Assessment and Plan: continue supplements (8) Mixed hyperlipidemia: Code(s): E78.2 - Mixed hyperlipidemia Status: Acute Assessment and Plan: continue statins (9) Essential hypertension: Code(s): I10 - Essential (primary) hypertension Status: Acute Assessment and Plan: controlled continue amlodipine, lisinopril, and metoprolol vital signs ordered will adjust medication as needed (10) Elevated white blood cell count, unspecified: Code(s): D72.829 - Elevated white blood cell count, unspecified Status: Acute Assessment and Plan: etiology unknown WBC 17.4>12.9>18.7> 15.7 continue Rocephin blood culture pending UA culture no growth patient afebrile lactic acid within normal limits CRP elevated COVID influenza negative Subjective Date/time seen: 12/21/22 08:32 Interval history: patient notes that she is tolerating her meals , slept well overnight. she has no complaints at this time. The patient denies SOB, CP, palpitation, extremity numbness, lightheadedness, dizziness, constipation, diarrhea, chills, or fever. patient will transition into a swing bed . will continue to trend her WBCs Review of Systems Review of Systems: All systems reviewed & are unremarkable except as noted in HPI and below Exam Narrative: GENERAL: for Víctor female in no apparent distress. HEAD: normocephalic, atraumatic. EYES: PERRL. Sclera clear/white. Vision is grossly intact. EARS: External ears normal, auditory canals clear and without drainage, TMs normal without perforation. Hearing grossly intact. NOSE: External nose normal with no obvious nasal discharge, nares without redness, no rhinorrhea. THROAT: Mucous membranes moist, posterior pharynx clear. NECK: Neck supple, non-tender without lymphadenopathy, masses or thyromegaly. CARDIOVASCULAR: tachycardia and rhythm without murmurs, gallops, or rubs. RESPIRATORY: Clear to auscultation. Breath sounds equal bilaterally. No wheezes, rales, or rhonchi. GASTROINTESTINAL: Abdomen soft, non-tender, nondistended. Bowel sounds are active. No hepato-splenomegaly, or palpable masses. No guarding. SKIN: warm, intact with no suspicious lesions or rash, good texture and turgor. NEURO: awake, alert, and oriented to person, place and time. There were no obvious focal neurologic abnormalities. EXTREMITIES: Normal range of motion. No edema. No calf tenderness Objective Data Vital Signs Vital Signs: Vital Signs - 24 hr 12/20/22 09:45 12/20/22 13:28 12/20/22 13:37 Temperature Pulse Rate 94 86 88 Respiratory Rate 18 18 Blood Pressure Pulse Oximetry 96 98 Oxygen Delivery 12/20/22 16:00 12/20/22 18:17 11/23
--- NOTE | 2022-12-21 17:30 | PC.NURSE ---
Patient refused to eat her dinner, stating that she was saving it for her to eat. Patient drank her ensure and is currently drinking her soda, but stated that her would eat the food. Bath Design Sales Consultant educated patient that she is in a hospital and needs her nutrition. Patient stated that her would want the food. Bath Design Sales Consultant placed the food in the fridge for patient to have after visiting hours if she likes.
[2022-12-21] MEDS: traZODone HCL 50 MG TABLET 100 MG PO (20:46)
[2022-12-21] MEDS: OMEGA 3 POLYUNSAT FATTY ACIDS 1 GM CAP PO (20:46)
[2022-12-21] MEDS: HYDROcodone/acetaminophen (*CRX) 5-325 MG TABLET 1 TAB PO (20:47)
[2022-12-21] MEDS: amLODIPine BESYLATE 2.5 MG TABLET PO (20:47)
[2022-12-22] VITALS: BP 139/71; PULSE 78; RESP 16; TEMP 36.5; O2SAT 95
[2022-12-22] MEDS: methylPREDNISolone SOD SUCC 125 MG VIAL 60 MG IV PUSH ×2 (00:24→05:44)
[2022-12-22 05:19] LABS: Hematocrit 31.7 % (35.0-42.0); Hemoglobin 10.2 g/dL (11.7-13.8); Mean Corpuscular HGB Conc 32.2 g/dL (32.0-36.0); Mean Corpuscular Hemoglobin 28.4 pg (27.0-31.0); Mean Corpuscular Volume 88.3 fL (78.0-102.0); Mean Platelet Volume 8.8 fl (9.2-11.8); Platelet Count Result 500 K/mm3 (150-420); Red Blood Count 3.59 M/mm3 (4.20-5.40); White Blood Count 14.1 K/mm3 (4.8-10.8)
[2022-12-22] MEDS: IPRATROPIUM BR 0.02% INH SOLN 0.5 MG/2.5 ML VIAL INHALATION (05:19)
[2022-12-22 05:20] VITALS: PULSE 81; RESP 16; O2SAT 92
[2022-12-22 05:28] VITALS: PULSE 80; RESP 16
[2022-12-22 05:38] LABS: Alanine Aminotransferase 37 U/L (14-59); Albumin Level 1.9 g/dL (3.4-5.0); Alkaline Phosphatase 71 U/L (46-116); Anion Gap 9 mmol/L (8-16); Aspartate Amino Transferase 16 U/L (15-37); Bilirubin,Total 0.3 mg/dL (0.00-1.00); Blood Urea Nitrogen 33 mg/dL (7-18); Calcium 8.3 mg/dL (8.5-10.1); Carbon Dioxide 26 mmol/L (21-32); Chloride 104 mmol/L (98-108); Estimated CRCL calculation 32 ml/min; Estimated Glomerular Filt Rate 54; Glucose 123 mg/dL (70-99); Osmolality Calculated 296 mOsm/kg (285-295); Potassium 4.3 mmol/L (3.5-5.1); Sodium 139 mmol/L (136-145); Total Protein 5.3 g/dL (6.4-8.2)
[2022-12-22 07:52] VITALS: BP 166/70; PULSE 80; RESP 16; TEMP 36.9; O2SAT 95
[2022-12-22 09:04] VITALS: PULSE 80
[2022-12-22] MEDS: METOPROLOL TARTRATE 50 MG TAB 100 MG PO (09:04)
[2022-12-22] MEDS: cilostazoL 100 MG TABLET PO (09:04)
[2022-12-22] MEDS: ENOXAPARIN 40 MG/0.4 ML SYRINGE SUB-Q (09:04)
[2022-12-22] MEDS: lisinopriL 20 MG TABLET PO (09:05)
[2022-12-22] MEDS: ASPIRIN 81 MG ENTERIC TABLET PO (09:05)
[2022-12-22] MEDS: ROSUVASTATIN 5 MG TABLET PO (09:05)
[2022-12-22] MEDS: guaiFENesin 12 HR 600 MG TABCR 1200 MG PO (09:06)
--- NOTE | 2022-12-22 10:42 | PM.DS ---
DS: Admitting Diagnosis Discharge Date 12/22/2022 Admitting Diagnosis Weakness and congestive heart failure DS: Discharge Diagnosis Discharge Diagnosis (1) Systolic dysfunction: Code(s): I51.9 - Heart disease, unspecified Status: Acute Assessment and Plan: BNP elevated chest x-ray does not indicate pulmonary edema (2) Left bundle branch block: Code(s): I44.7 - Left bundle-branch block, unspecified Status: Acute Assessment and Plan: Stable EKG indicates sinus tach with a rate of 111 and left BBB (3) Generalized weakness: Code(s): R53.1 - Weakness Status: Acute Assessment and Plan: possibly secondary to dehydration versus infection PT OT evaluation completed recommend rehab awaiting insurance approved (4) Vitamin B12 deficiency: Code(s): E53.8 - Deficiency of other specified B group vitamins Status: Acute Assessment and Plan: continue supplements (5) TIA (transient ischemic attack): Code(s): G45.9 - Transient cerebral ischemic attack, unspecified Status: Acute (6) Peripheral vascular disease: Code(s): I73.9 - Peripheral vascular disease, unspecified Status: Acute (7) Vitamin D deficiency: Code(s): E55.9 - Vitamin D deficiency, unspecified Status: Acute Assessment and Plan: continue supplements (8) Mixed hyperlipidemia: Code(s): E78.2 - Mixed hyperlipidemia Status: Acute Assessment and Plan: continue statins (9) Essential hypertension: Code(s): I10 - Essential (primary) hypertension Status: Acute Assessment and Plan: controlled continue amlodipine, lisinopril, and metoprolol vital signs ordered will adjust medication as needed (10) Elevated white blood cell count, unspecified: Code(s): D72.829 - Elevated white blood cell count, unspecified Status: Acute Assessment and Plan: etiology unknown WBC 17.4>12.9>18.7> 15. blood culture pending UA culture no growth patient afebrile lactic acid within normal limits CRP elevated COVID influenza negative DS: Summary Hospital Course Reason for hospitalization: thickness and confusion Hospital Course: ?this is a 77-year-old female presented to our? ER for increased weakness and confusion. patient has a past medical history hypertension left bundle branch a ours most is hyperlipidemia, osteoarthritis osteoporosis, PVD systolic congestive heart failure, tobacco dependence, TIAs, vitamin B12 deficiency and vitamin-D deficiency.? Apparently patient had a home health nurse visiting.? The home health nurse noticed that the patient was becoming progressively weak and confused with each visit.? This visit? home health nurse was coming to the home to collect a urine sample for testing and noticed that the patient had worsened and recommended that she come to our Ed. patient condition has improved since her admission she does continue to experience weakness we will transition her to our swing bed. The patient denies SOB, CP, palpitation, extremity numbness, lightheadedness, dizziness, constipation, diarrhea, chills, or fever. Time Spent with Patient Time attestation: Total time spent providing and/or coordinating discharge services: Exam Narrative: GENERAL: for Víctor female in no apparent distress. HEAD: normocephalic, atraumatic. EYES: PERRL. Sclera clear/white. Vision is grossly intact. EARS: External ears normal, auditory canals clear and without drainage, TMs normal without perforation. Hearing grossly intact. NOSE: External nose normal with no obvious nasal discharge, nares without redness, no rhinorrhea. THROAT: Mucous membranes moist, posterior pharynx clear. NECK: Neck supple, non-tender without lymphadenopathy, masses or thyromegaly. CARDIOVASCULAR: regular rate and rhythm without murmurs, gallops, or rubs. RESPIRATORY: Clear to auscultation. Br
== END 2022-12-22 10:45 | disposition swing bed (61) | DRG 947 ==
LOC: CHSED 15:16 → CHS2ND 17:01
PROVIDERS: Nurse Practitioner; Admitting Provider Internal Medicine; Emergency Provider Emergency Medicine; Visit Provider Internal Medicine
DX: R53.1 Weakness (principal); I50.23 Acute on chronic systolic (congestive) heart failure; I11.0 Hypertensive heart disease with heart failure; I44.7 Left bundle-branch block, unspecified; I35.0 Nonrheumatic aortic (valve) stenosis; I73.9 Peripheral vascular disease, unspecified; D72.829 Elevated white blood cell count, unspecified; E78.2 Mixed hyperlipidemia; E53.8 Deficiency of other specified B group vitamins; E55.9 Vitamin D deficiency, unspecified; F17.210 Nicotine dependence, cigarettes, uncomplicated; M19.90 Unspecified osteoarthritis, unspecified site; M81.0 Age-related osteoporosis without current pathological fracture; Z95.5 Presence of coronary angioplasty implant and graft; Z86.73 Personal history of transient ischemic attack (TIA), and cerebral infarction without residual deficits
CPT/HCPCS: 36415; 71045; 74177; 80053; 81001; 83605; 83735; 83880; 85025; 85027; 85055; 86140; 87040; 87086; 87636; 93005; 94640; 96361; 96372; 96374; 96376; 97110; 97161; 97165; 97530; 97535; 99285; A9270; G0378; J1650; J2930; J7030; Q9967

== ENCOUNTER 2022-12-22 10:46 | Inpatient (IN) | payer MEDICARE, SELFPAY ==
[2022-12-22 11:02] VITALS: BMI 20.9
--- NOTE | 2022-12-22 11:11 | PC.NURSE ---
Patient was discharged as medical patient and readmitted as Swing Bed patient at 10:45.
[2022-12-22 11:12] VITALS: PULSE 80; RESP 16; O2SAT 95
--- NOTE | 2022-12-22 12:18 | PM.IMHP ---
H&P: HPI History of Present Illness Date/Time: 12/22/22 12:18 Chief Complaint: rehab weakness Narrative: this is a 77-year-old debility presented to our emergency department due to confusion and weakness. Patient is currently medically stable and ready to transition into our swing bed per PT recommendations. Patient admitted in swing bed for rehabilitation due to decreased balance decreased mobility in severe limited function endurant and/or mobility. Review of Systems Review of Systems: A 14 organ system Review of Systems was performed and pertinent positives included in the HPI, otherwise remaining ROS is negative. [facility] Past Medical History Medical History Essential hypertension Left bundle branch block Mild aortic stenosis Mixed hyperlipidemia Osteoarthritis Osteoporosis Peripheral vascular disease Systolic dysfunction Tobacco abuse Transient ischemic attack Vitamin B12 deficiency Vitamin D deficiency Surgical History Surgical History History of appendectomy History of arthroscopy of left knee History of tonsillectomy History of tubal ligation History of vascular surgery (2007) Right common iliac artery stent. Family History Family History Sibling Depression Patient's sister is Father Family history of emphysema Mother Family history of coronary artery disease Other Hypertension Social History Social History Social History: Surrogate decision maker: Martin Thompson, spouse. Code status: Full code. Smoking packs per day: 0.5 Smoking cigarettes per day: 10.0 Years smoked: 60 Smoking pack-years: 30.00 Smoking status: Current some day smoker Tobacco type: cigarettes Second hand tobacco smoke exposure: Yes Additional smoking assessment comments: 5 per day currently x 50 years Alcohol intake: never Substance use: never Substance use type: does not use Lack of Transportation: No Lack of Food: Never True Current Housing: I Have Housing Concerned About Future Housing: No Difficulty Paying Gas/Electric Bills: No Difficulty Paying for Meds: No Currently Unemployed: No Education: Associate Degree Difficulty w/ Childcare or Family Care: No Living arrangements: with family Additional living arrangements comments: The patient lives with her in [place]. 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: No Meds Home Medications and Allergies Home Medications Medication Instructions Recorded Confirmed Type omega-3 fatty acids 1,000 mg 1,000 mg PO HS 08/20/20 12/22/22 History capsule (Fish Oil Concentrate) acetaminophen 325 mg tablet (Mapap 650 mg PO Q6H PRN Mild Pain (1-3) 12/08/21 12/22/22 Rx (acetaminophen)) Or Fever #20 tabs metoprolol tartrate 50 mg tablet 100 mg PO Q12HR #360 tabs 07/17/22 12/22/22 Rx rosuvastatin 5 mg tablet 5 mg PO DAILY #90 tabs 07/17/22 12/22/22 Rx ergocalciferol (vitamin D2) 1,250 1,250 mcg PO .EVERY OTHER WEEK #14 07/22/22 12/22/22 Rx mcg (50,000 unit) capsule caps cilostazol 100 mg tablet 100 mg PO BID #180 tabs 09/21/22 12/22/22 Rx tramadol 50 mg tablet 50 mg PO Q6H PRN pain #60 tabs 12/15/22 12/22/22 Rx amlodipine 2.5 mg tablet 2.5 mg PO QHS 12/22/22 12/22/22 History lisinopril 20 mg tablet 20 mg PO DAILY 12/22/22 12/22/22 History Allergies Allergy/AdvReac Type Severity Reaction Status Date / Time No Known Allergies Allergy Mild NONE Verified 12/18/22 14:45 Vital Signs Vital Signs - 24 hr 12/22/22 11:12 Pulse Rate 80 Respiratory Rate 16 Pulse Oximetry 95 Oxygen Delivery Room Air Exam Narrative: GENERAL: elderly frail geriatric female in no apparent distress. HEAD:
[2022-12-22] MEDS: BENZONATATE 100 MG CAPSULE PO ×2 (12:59→17:05)
[2022-12-22 16:00] VITALS: BP 156/74; PULSE 71; RESP 16; TEMP 36.7; O2SAT 94
[2022-12-22] MEDS: cilostazoL 100 MG TABLET PO (17:04)
--- NOTE | 2022-12-22 19:30 | PC.NURSE ---
Upons entering room for pt assessment she is sitting on side of bed c phillips catheter hanging on trash can and trying to figure out how to get her legs in bed c the phillips. Assisted pt to bed and reinforced pt to call for assistance. Pt given in length instruction on use of nurse call thibodeaux and states understanding. Pt given water to drink and she drank approx 300 ml ice water, she reports no c/o pain or SOB or dizziness. Pt has loose cough at times, Lungs are clear and RR even and nonlabored upon assessment. Comfort care provided and call thibodeaux at pt side.
[2022-12-22 19:54] VITALS: PULSE 76; RESP 20; O2SAT 96
[2022-12-22 21:11] VITALS: PULSE 81
[2022-12-22] MEDS: amLODIPine BESYLATE 2.5 MG TABLET PO (21:11)
[2022-12-22] MEDS: METOPROLOL TARTRATE 50 MG TAB 100 MG PO (21:11)
[2022-12-22] MEDS: traZODone HCL 50 MG TABLET 100 MG PO (21:12)
[2022-12-22] MEDS: OMEGA 3 POLYUNSAT FATTY ACIDS 1 GM CAP PO (21:12)
[2022-12-22] MEDS: guaiFENesin 200 MG/10 ML UDC PO (23:10)
--- NOTE | 2022-12-22 23:10 | PC.NURSE ---
Pt has harsh loose cough noted and is awake, she requests something for a cough. Guifenisin syrup given as per order. Pt resting c eyes closed and call thibodeaux at side.
[2022-12-23] VITALS: BP 140/75; PULSE 74; RESP 18; TEMP 36.6; O2SAT 96
[2022-12-23 08:00] VITALS: BP 137/70; PULSE 68; RESP 14; TEMP 36.2; O2SAT 96
[2022-12-23 10:54] VITALS: PULSE 68
[2022-12-23] MEDS: METOPROLOL TARTRATE 50 MG TAB 100 MG PO ×2 (10:54→20:09)
[2022-12-23] MEDS: cilostazoL 100 MG TABLET PO ×2 (10:55→16:47)
[2022-12-23] MEDS: lisinopriL 20 MG TABLET PO (10:55)
[2022-12-23] MEDS: BENZONATATE 100 MG CAPSULE PO ×3 (10:55→16:47)
[2022-12-23] MEDS: ROSUVASTATIN 5 MG TABLET PO (10:55)
[2022-12-23 16:00] VITALS: BP 146/72; PULSE 71; RESP 16; TEMP 36.7; O2SAT 98
[2022-12-23 20:09] VITALS: PULSE 73
[2022-12-23] MEDS: traZODone HCL 50 MG TABLET 100 MG PO (20:09)
[2022-12-23] MEDS: amLODIPine BESYLATE 2.5 MG TABLET PO (20:09)
[2022-12-23] MEDS: OMEGA 3 POLYUNSAT FATTY ACIDS 1 GM CAP PO (20:09)
[2022-12-23 23:07] VITALS: BP 134/63; PULSE 80; RESP 15; TEMP 36.2; O2SAT 95
[2022-12-24 05:19] LABS: Hematocrit 36.7 % (35.0-42.0); Hemoglobin 11.5 g/dL (11.7-13.8); Mean Corpuscular HGB Conc 31.3 g/dL (32.0-36.0); Mean Corpuscular Volume 89.5 fL (78.0-102.0); Mean Platelet Volume 8.8 fl (9.2-11.8); Platelet Count Result 462 K/mm3 (150-420); Red Cell Distribution Width 15.2 % (11.6-14.4)
[2022-12-24 05:31] LABS: Anion Gap 6 mmol/L (8-16); Blood Urea Nitrogen 21 mg/dL (7-18); Calcium 8.1 mg/dL (8.5-10.1); Carbon Dioxide 29 mmol/L (21-32); Chloride 103 mmol/L (98-108); Estimated CRCL calculation 34 ml/min; Estimated Glomerular Filt Rate 57; Glucose 82 mg/dL (70-99); Osmolality Calculated 288 mOsm/kg (285-295); Potassium 4.1 mmol/L (3.5-5.1); Sodium 138 mmol/L (136-145)
[2022-12-24 08:00] VITALS: BP 131/71; PULSE 80; RESP 14; TEMP 36.6; O2SAT 96
[2022-12-24 09:19] VITALS: PULSE 80
[2022-12-24] MEDS: METOPROLOL TARTRATE 50 MG TAB 100 MG PO ×2 (09:19→20:05)
[2022-12-24] MEDS: BENZONATATE 100 MG CAPSULE PO ×2 (09:20→18:29)
[2022-12-24] MEDS: lisinopriL 20 MG TABLET PO (09:20)
[2022-12-24] MEDS: cilostazoL 100 MG TABLET PO ×2 (09:20→18:29)
[2022-12-24] MEDS: ROSUVASTATIN 5 MG TABLET PO (09:20)
[2022-12-24 16:40] VITALS: BP 160/80; PULSE 93; RESP 18; TEMP 37.2; O2SAT 96
[2022-12-24 18:32] LABS: Add Urine Microscopic? YES; Appearance Urine Clear (Clear); Bilirubin Urine Negative (Negative); Blood Urine Negative (Negative); Color Urine Light Yellow (Yellow); Glucose Urine UA Negative (Negative); Ketones Urine Negative (Negative); Leukocyte Esterase Ur Trace LEU/UL (Negative); Nitrate Urine Negative (Negative); Protein Urine Negative (Negative); Specific Grav Ur 1.015 (1.010-1.020); Urobilinogen Urine 0.2 mg/dL (0.2-1.0); pH Urine 7.5 (5.0-8.0)
[2022-12-24 18:38] LABS: RBC Urine 0-2 /hpf (0-2)
[2022-12-24 18:39] LABS: Bacteria Urine 1+ /hpf; Squamous Epithelial Cell Urine Rare /hpf (Few)
[2022-12-24 20:05] VITALS: PULSE 99
[2022-12-24] MEDS: traZODone HCL 50 MG TABLET 100 MG PO (20:05)
[2022-12-24] MEDS: amLODIPine BESYLATE 2.5 MG TABLET PO (20:06)
[2022-12-24] MEDS: OMEGA 3 POLYUNSAT FATTY ACIDS 1 GM CAP PO (20:06)
[2022-12-24 23:01] VITALS: BP 164/79; PULSE 97; RESP 16; TEMP 36.8; O2SAT 97
[2022-12-25] MEDS: HYDROcodone/acetaminophen (*CRX) 5-325 MG TABLET 1 TAB PO ×2 (04:45→09:44)
[2022-12-25 08:00] VITALS: BP 160/70; PULSE 95; RESP 14; TEMP 36.4; O2SAT 96
[2022-12-25 08:52] VITALS: PULSE 68
[2022-12-25] MEDS: METOPROLOL TARTRATE 50 MG TAB 100 MG PO ×2 (08:52→20:32)
[2022-12-25] MEDS: cilostazoL 100 MG TABLET PO ×2 (08:52→16:10)
[2022-12-25] MEDS: ROSUVASTATIN 5 MG TABLET PO (08:52)
[2022-12-25] MEDS: BENZONATATE 100 MG CAPSULE PO ×2 (08:52→16:10)
[2022-12-25] MEDS: lisinopriL 20 MG TABLET PO (08:52)
--- NOTE | 2022-12-25 15:30 | PC.NURSE ---
Addendum entered by Cristin Baca RN 12/25/22 15:40: RECENT INDWELLING YOUNG CATHETER Original Note: ENSURED CHARGE NURSE AWARE OF PATIENT ELEVATED WBC AND UA RESULTS WITH REPORT OF INCREASED CONFUSION LAST NIGHT. NO CURRENT ANTIBIOTIC NOTED. CHARGE NURSE CLARIFYING RESULTS KNOWN WITH HOSPITALIST.
[2022-12-25 16:00] VITALS: BP 125/48; PULSE 68; RESP 16; TEMP 37.6; O2SAT 95
[2022-12-25] MEDS: ACETAMINOPHEN 325 MG TABLET 650 MG PO (17:38)
[2022-12-25] MEDS: traZODone HCL 50 MG TABLET 100 MG PO (20:31)
[2022-12-25 20:32] VITALS: PULSE 84
[2022-12-25] MEDS: amLODIPine BESYLATE 2.5 MG TABLET PO (20:32)
[2022-12-25] MEDS: LORazepam (*CRX) 0.5 MG TABLET PO (20:33)
[2022-12-25] MEDS: OMEGA 3 POLYUNSAT FATTY ACIDS 1 GM CAP PO (20:33)
[2022-12-25] MEDS: SULFAMETHOXAZOLE/TRIMETHOPRIM 800/160 MG DS TABLET 1 TAB PO (20:33)
[2022-12-26] VITALS: BP 119/65; PULSE 88; RESP 18; TEMP 36.2; O2SAT 94
[2022-12-26 08:00] VITALS: BP 117/70; PULSE 95; RESP 18; TEMP 36.4; O2SAT 96
[2022-12-26 08:36] VITALS: PULSE 79
[2022-12-26] MEDS: METOPROLOL TARTRATE 50 MG TAB 100 MG PO ×2 (08:36→20:23)
[2022-12-26] MEDS: ROSUVASTATIN 5 MG TABLET PO (08:36)
[2022-12-26] MEDS: BENZONATATE 100 MG CAPSULE PO ×3 (08:37→16:42)
[2022-12-26] MEDS: lisinopriL 20 MG TABLET PO (08:37)
[2022-12-26] MEDS: SULFAMETHOXAZOLE/TRIMETHOPRIM 800/160 MG DS TABLET 1 TAB PO ×2 (08:37→20:24)
[2022-12-26] MEDS: cilostazoL 100 MG TABLET PO ×2 (08:38→16:42)
[2022-12-26 16:00] VITALS: BP 110/60; PULSE 70; RESP 14; TEMP 36.7; O2SAT 94
[2022-12-26 20:00] VITALS: PULSE 88; RESP 14; O2SAT 94
[2022-12-26 20:23] VITALS: PULSE 88
[2022-12-26] MEDS: traZODone HCL 50 MG TABLET 100 MG PO (20:23)
[2022-12-26] MEDS: OMEGA 3 POLYUNSAT FATTY ACIDS 1 GM CAP PO (20:24)
[2022-12-26] MEDS: amLODIPine BESYLATE 2.5 MG TABLET PO (20:24)
[2022-12-26] MEDS: HYDROcodone/acetaminophen (*CRX) 5-325 MG TABLET 1 TAB PO (20:25)
[2022-12-27] VITALS: BP 96/51; PULSE 88; RESP 16; TEMP 36.6; O2SAT 94
[2022-12-27 07:51] VITALS: BP 119/64; PULSE 80; RESP 16; TEMP 36.6; O2SAT 94
[2022-12-27] MEDS: cilostazoL 100 MG TABLET PO ×2 (08:33→16:58)
[2022-12-27] MEDS: SULFAMETHOXAZOLE/TRIMETHOPRIM 800/160 MG DS TABLET 1 TAB PO ×2 (08:33→20:26)
[2022-12-27] MEDS: ROSUVASTATIN 5 MG TABLET PO (08:33)
[2022-12-27] MEDS: BENZONATATE 100 MG CAPSULE PO ×3 (08:33→16:58)
[2022-12-27 08:34] VITALS: PULSE 83
[2022-12-27] MEDS: lisinopriL 20 MG TABLET PO (08:34)
[2022-12-27] MEDS: METOPROLOL TARTRATE 50 MG TAB 100 MG PO ×2 (08:34→20:26)
[2022-12-27 15:47] VITALS: BP 117/55; PULSE 73; RESP 14; TEMP 36.6; O2SAT 93
[2022-12-27 19:48] VITALS: PULSE 73; RESP 14; O2SAT 93
[2022-12-27 20:26] VITALS: PULSE 95
[2022-12-27] MEDS: OMEGA 3 POLYUNSAT FATTY ACIDS 1 GM CAP PO (20:26)
[2022-12-27] MEDS: traZODone HCL 50 MG TABLET 100 MG PO (20:26)
[2022-12-27] MEDS: amLODIPine BESYLATE 2.5 MG TABLET PO (20:26)
[2022-12-27] MEDS: HYDROcodone/acetaminophen (*CRX) 5-325 MG TABLET 1 TAB PO (20:26)
[2022-12-28] VITALS: BP 103/52; PULSE 95; RESP 16; TEMP 36.7; O2SAT 96
--- NOTE | 2022-12-28 07:07 | PC.NURSE ---
Patient slept well last night. She woke up once to use the toilet. Patient was continent through the night.
[2022-12-28 08:00] VITALS: BP 97/44; PULSE 91; TEMP 36.7; O2SAT 95
[2022-12-28] MEDS: ERGOCALCIFEROL 50,000 UNITS CAPSULE 50000 UNITS PO (09:00)
[2022-12-28 09:06] VITALS: PULSE 78
[2022-12-28] MEDS: METOPROLOL TARTRATE 50 MG TAB 100 MG PO ×2 (09:06→20:53)
[2022-12-28] MEDS: ROSUVASTATIN 5 MG TABLET PO (09:06)
[2022-12-28] MEDS: BENZONATATE 100 MG CAPSULE PO ×3 (09:07→16:44)
[2022-12-28] MEDS: cilostazoL 100 MG TABLET PO ×2 (09:07→16:45)
[2022-12-28] MEDS: SULFAMETHOXAZOLE/TRIMETHOPRIM 800/160 MG DS TABLET 1 TAB PO ×2 (09:07→20:54)
[2022-12-28] MEDS: lisinopriL 20 MG TABLET PO (09:07)
[2022-12-28 16:00] VITALS: BP 112/53; PULSE 83; RESP 16; TEMP 36.9; O2SAT 95
--- NOTE | 2022-12-28 16:40 | PC.NURSE ---
Patient ambulated in gupta with PT then used the bathroom before sitting in chair. Pt. set up for supper. No c/o paiin, SOB. Call light and belongings within reach.
[2022-12-28 19:46] VITALS: PULSE 83; RESP 16; O2SAT 95
[2022-12-28 20:53] VITALS: PULSE 89
[2022-12-28] MEDS: traZODone HCL 50 MG TABLET 100 MG PO (20:53)
[2022-12-28] MEDS: amLODIPine BESYLATE 2.5 MG TABLET PO (20:53)
[2022-12-28] MEDS: HYDROcodone/acetaminophen (*CRX) 5-325 MG TABLET 1 TAB PO (20:54)
[2022-12-28] MEDS: OMEGA 3 POLYUNSAT FATTY ACIDS 1 GM CAP PO (20:54)
[2022-12-29] VITALS: BP 114/51; PULSE 89; RESP 15; TEMP 36.6; O2SAT 95
[2022-12-29 08:00] VITALS: BP 95/54; PULSE 90; RESP 18; TEMP 36.3; O2SAT 96
--- NOTE | 2022-12-29 08:23 | WPDPN ---
Progress Note: A&P Assessment and Plan (1) Generalized weakness: Code(s): R53.1 - Weakness Status: Acute Assessment and Plan: ? Exhibit tolerance during physical activity as evidenced by a normal fluctuation of vital signs during physical activity. ? Patient will be ability to perform required activities of daily living. ? Provide appropriate nutrition for healing and strength. ? Use appropriate to prevent falls. ? Continue physical therapy/occupational therapy. (2) Systolic dysfunction: Code(s): I51.9 - Heart disease, unspecified Status: Acute Assessment and Plan: compensated weekly weights monitor for edema (3) Left bundle branch block: Code(s): I44.7 - Left bundle-branch block, unspecified Status: Acute Assessment and Plan: stable (4) Murmur: Code(s): R01.1 - Cardiac murmur, unspecified Status: Acute (5) Fall: Code(s): W19.XXXA - Unspecified fall, initial encounter Status: Acute Assessment and Plan: continue rehab (6) Vitamin B12 deficiency: Code(s): E53.8 - Deficiency of other specified B group vitamins Status: Acute Assessment and Plan: continue supplements (7) TIA (transient ischemic attack): Code(s): G45.9 - Transient cerebral ischemic attack, unspecified Status: Acute Assessment and Plan: no s/s of TIA at this time. (8) Vitamin D deficiency: Code(s): E55.9 - Vitamin D deficiency, unspecified Status: Acute Assessment and Plan: continue supplements (9) Mixed hyperlipidemia: Code(s): E78.2 - Mixed hyperlipidemia Status: Acute Assessment and Plan: continue home medications (10) Essential hypertension: Code(s): I10 - Essential (primary) hypertension Status: Acute Assessment and Plan: stable continue home medications Subjective Date/time seen: 12/29/22 08:23 Interval history: Patient up with physical therapy ambulating in the hallway down the gupta. Patient denied any pain and or difficulties although she is very forgetful she is pleasant. Patients labs were reviewed last week and we will repeat some this week. Patient seems to be progressing well with therapy. Exam Narrative: GENERAL: elderly frail geriatric female in no apparent distress. HEAD: normocephalic, atraumatic. EYES: PERRL. Sclera clear/white. EARS: External ears normal, Hearing grossly intact. NOSE: External nose normal with no obvious nasal discharge, nares without redness, no rhinorrhea. THROAT: Mucous membranes moist, posterior pharynx clear. CARDIOVASCULAR: Regular rate and rhythm RESPIRATORY: Clear to auscultation. Breath sounds equal bilaterally. GASTROINTESTINAL: Abdomen soft, non-tender, nondistended. Bowel sounds are active. SKIN: warm, intact with no suspicious lesions or rash, good texture and turgor. NEURO: awake, alert, and oriented to person, place and time. obvious forgetfulness EXTREMITIES: Normal range of motion. No edema. No calf tenderness. Objective Data Vital Signs Vital Signs: Vital Signs - 24 hr 12/28/22 09:06 12/28/22 16:00 12/28/22 19:46 Temperature 98.5 F Pulse Rate 78 83 83 Respiratory Rate 16 16 Blood Pressure 112/53 L Pulse Oximetry 95 95 Oxygen Delivery Room Air Room Air 12/28/22 20:53 12/29/22 00:00 Temperature 97.8 F Pulse Rate 89 89 Respiratory Rate 15 Blood Pressure 114/51 L Pulse Oximetry 95 Oxygen Delivery Room Air Intake/Output Intake/Output: Intake & Output 12/26/22 12/27/22 12/28/22 12/29/22 23:59 23:59 23:59 23:59 Intake Total 1410 1281 1170 120 Balance 1410 1281 1170 120 Meds/Results Medications: Active Medications Generic Name Dose Route Start Last Admin Trade Name Freq PRN Reason Stop Dose Admin Acetaminophen 650 mg 12/22/22 12:08 12/25/22 17:38 Acetaminophen 325 Mg Tablet PO 650 mg Q6H PRN Administration
[2022-12-29 09:26] VITALS: PULSE 90
[2022-12-29] MEDS: ROSUVASTATIN 5 MG TABLET PO (09:26)
[2022-12-29] MEDS: SULFAMETHOXAZOLE/TRIMETHOPRIM 800/160 MG DS TABLET 1 TAB PO ×2 (09:26→20:11)
[2022-12-29] MEDS: BENZONATATE 100 MG CAPSULE PO ×3 (09:26→17:27)
[2022-12-29] MEDS: cilostazoL 100 MG TABLET PO ×2 (09:26→17:27)
[2022-12-29] MEDS: lisinopriL 20 MG TABLET PO (09:26)
[2022-12-29] MEDS: METOPROLOL TARTRATE 50 MG TAB 100 MG PO ×2 (09:26→20:11)
[2022-12-29] MEDS: MEGESTROL ACETATE (*CHEMO) 40 MG TABLET PO ×2 (12:28→17:27)
[2022-12-29 16:00] VITALS: BP 110/62; PULSE 95; RESP 15; TEMP 36.3; O2SAT 96
[2022-12-29] MEDS: traZODone HCL 50 MG TABLET 100 MG PO (20:10)
[2022-12-29 20:11] VITALS: PULSE 84
[2022-12-29] MEDS: OMEGA 3 POLYUNSAT FATTY ACIDS 1 GM CAP PO (20:11)
[2022-12-29] MEDS: amLODIPine BESYLATE 2.5 MG TABLET PO (20:11)
[2022-12-29] MEDS: HYDROcodone/acetaminophen (*CRX) 5-325 MG TABLET 1 TAB PO (20:12)
[2022-12-30] VITALS: BP 119/69; PULSE 89; RESP 16; TEMP 36.2; O2SAT 93
[2022-12-30 05:13] LABS: Hematocrit 30.5 % (35.0-42.0); Hemoglobin 9.8 g/dL (11.7-13.8); Mean Corpuscular HGB Conc 32.1 g/dL (32.0-36.0); Mean Corpuscular Hemoglobin 28.7 pg (27.0-31.0); Mean Corpuscular Volume 89.4 fL (78.0-102.0); Mean Platelet Volume 9.2 fl (9.2-11.8); Platelet Count Result 311 K/mm3 (150-420); Red Blood Count 3.41 M/mm3 (4.20-5.40); Red Cell Distribution Width 15.9 % (11.6-14.4); White Blood Count 10.1 K/mm3 (4.8-10.8)
[2022-12-30 05:23] LABS: Anion Gap 5 mmol/L (8-16); Blood Urea Nitrogen 11 mg/dL (7-18); Calcium 8.1 mg/dL (8.5-10.1); Carbon Dioxide 27 mmol/L (21-32); Chloride 105 mmol/L (98-108); Estimated CRCL calculation 30 ml/min; Estimated Glomerular Filt Rate 49; Glucose 89 mg/dL (70-99); Osmolality Calculated 282 mOsm/kg (285-295); Potassium 4.5 mmol/L (3.5-5.1); Sodium 137 mmol/L (136-145)
--- NOTE | 2022-12-30 07:30 | PC.NURSE ---
Up working with PT department
[2022-12-30 07:47] VITALS: BP 100/51; PULSE 91; RESP 18; TEMP 36.8; O2SAT 94
[2022-12-30] MEDS: BENZONATATE 100 MG CAPSULE PO ×3 (08:14→16:46)
[2022-12-30] MEDS: SULFAMETHOXAZOLE/TRIMETHOPRIM 800/160 MG DS TABLET 1 TAB PO ×2 (08:14→20:00)
[2022-12-30] MEDS: cilostazoL 100 MG TABLET PO ×2 (08:14→16:46)
[2022-12-30] MEDS: MEGESTROL ACETATE (*CHEMO) 40 MG TABLET PO ×3 (08:14→16:46)
[2022-12-30 08:15] VITALS: PULSE 91
[2022-12-30] MEDS: lisinopriL 20 MG TABLET PO (08:15)
[2022-12-30] MEDS: ROSUVASTATIN 5 MG TABLET PO (08:15)
[2022-12-30] MEDS: METOPROLOL TARTRATE 50 MG TAB 100 MG PO ×2 (08:15→20:01)
--- NOTE | 2022-12-30 10:15 | PC.NURSE ---
OT in working with patient
--- NOTE | 2022-12-30 10:42 | PC.NURSE ---
here to visit, patient in bed after OT completed their session
[2022-12-30 16:00] VITALS: BP 121/61; PULSE 86; RESP 16; TEMP 36.9; O2SAT 94
--- NOTE | 2022-12-30 16:20 | PC.NURSE ---
Patient up in chair. Alert and answers questions appropriately. Denies pain or SOB. Call light and belongings within reach.
--- NOTE | 2022-12-30 17:38 | PC.NURSE ---
Patient fed self supper then asked to go to bed. Patient ambulated to bathroom with gait belt, walker, and 1 assist. Patient urinated, urine clear yellow. Patient ambulated and was able to lie down in bed. Call light and belongings within reach. Patient stated she was comfortable.
[2022-12-30] MEDS: HYDROcodone/acetaminophen (*CRX) 5-325 MG TABLET 1 TAB PO (20:00)
[2022-12-30 20:01] VITALS: PULSE 90
[2022-12-30] MEDS: amLODIPine BESYLATE 2.5 MG TABLET PO (20:01)
[2022-12-30] MEDS: OMEGA 3 POLYUNSAT FATTY ACIDS 1 GM CAP PO (20:01)
[2022-12-30] MEDS: traZODone HCL 50 MG TABLET 100 MG PO (20:02)
[2022-12-30 23:46] VITALS: BP 127/58; PULSE 90; RESP 18; TEMP 36.5; O2SAT 93
[2022-12-31 08:00] VITALS: BP 112/60; PULSE 95; RESP 15; TEMP 36.4; O2SAT 95
[2022-12-31] MEDS: cilostazoL 100 MG TABLET PO ×2 (08:19→17:37)
[2022-12-31] MEDS: BENZONATATE 100 MG CAPSULE PO ×3 (08:19→17:37)
[2022-12-31 08:20] VITALS: PULSE 95
[2022-12-31] MEDS: ROSUVASTATIN 5 MG TABLET PO (08:20)
[2022-12-31] MEDS: MEGESTROL ACETATE (*CHEMO) 40 MG TABLET PO ×3 (08:20→17:37)
[2022-12-31] MEDS: lisinopriL 20 MG TABLET PO (08:20)
[2022-12-31] MEDS: METOPROLOL TARTRATE 50 MG TAB 100 MG PO ×2 (08:20→20:26)
[2022-12-31] MEDS: SULFAMETHOXAZOLE/TRIMETHOPRIM 800/160 MG DS TABLET 1 TAB PO ×2 (08:20→20:30)
[2022-12-31 16:00] VITALS: BP 106/60; PULSE 87; RESP 14; TEMP 36.6; O2SAT 95
[2022-12-31] MEDS: HYDROcodone/acetaminophen (*CRX) 5-325 MG TABLET 1 TAB PO (20:24)
[2022-12-31] MEDS: traZODone HCL 50 MG TABLET 100 MG PO (20:24)
[2022-12-31] MEDS: OMEGA 3 POLYUNSAT FATTY ACIDS 1 GM CAP PO (20:24)
[2022-12-31] MEDS: amLODIPine BESYLATE 2.5 MG TABLET PO (20:25)
[2022-12-31 20:26] VITALS: PULSE 92
[2022-12-31 23:54] VITALS: BP 120/52; PULSE 95; RESP 16; TEMP 36.6; O2SAT 97
[2023-01-01 05:37] LABS: Hematocrit 32.3 % (35.0-42.0); Hemoglobin 10.5 g/dL (11.7-13.8); Mean Corpuscular HGB Conc 32.5 g/dL (32.0-36.0); Mean Corpuscular Hemoglobin 28.9 pg (27.0-31.0); Mean Platelet Volume 8.7 fl (9.2-11.8); Platelet Count Result 337 K/mm3 (150-420); Red Blood Count 3.63 M/mm3 (4.20-5.40); Red Cell Distribution Width 16.3 % (11.6-14.4); White Blood Count 10.4 K/mm3 (4.8-10.8)
[2023-01-01 05:48] LABS: Anion Gap 10 mmol/L (8-16); Blood Urea Nitrogen 12 mg/dL (7-18); Calcium 8.2 mg/dL (8.5-10.1); Carbon Dioxide 22 mmol/L (21-32); Chloride 104 mmol/L (98-108); Estimated CRCL calculation 31 ml/min; Estimated Glomerular Filt Rate 51; Glucose 91 mg/dL (70-99); Osmolality Calculated 281 mOsm/kg (285-295); Potassium 4.4 mmol/L (3.5-5.1); Sodium 136 mmol/L (136-145)
--- NOTE | 2023-01-01 06:12 | PM.DS ---
DS: Admitting Diagnosis Discharge Date 01/01/2023 Admitting Diagnosis this is a 77-year-old? debility presented to our emergency department due to confusion and weakness.? Patient is currently medically stable and ready to transition into our swing bed per PT recommendations.? ? Patient admitted in swing bed for rehabilitation due to decreased balance decreased mobility in severe limited function endurant and/or mobility. DS: Discharge Diagnosis Discharge Diagnosis (1) Generalized weakness: Code(s): R53.1 - Weakness Status: Acute Assessment and Plan: ? Exhibit tolerance during physical activity as evidenced by a normal fluctuation of vital signs during physical activity. ? Patient will be ability to perform required activities of daily living. ? Provide appropriate nutrition for healing and strength. ? Use appropriate to prevent falls. ? Continue physical therapy/occupational therapy. Discharge patient will discharge with outpatient PT OT (2) Systolic dysfunction: Code(s): I51.9 - Heart disease, unspecified Status: Acute Assessment and Plan: compensated weekly weights monitor for edema Discharge control follow-up with primary care physician (3) Left bundle branch block: Code(s): I44.7 - Left bundle-branch block, unspecified Status: Acute Assessment and Plan: stable (4) Murmur: Code(s): R01.1 - Cardiac murmur, unspecified Status: Acute (5) Fall: Code(s): W19.XXXA - Unspecified fall, initial encounter Status: Acute Assessment and Plan: continue rehab Discharge patient will discharge with outpatient PT OT (6) Vitamin B12 deficiency: Code(s): E53.8 - Deficiency of other specified B group vitamins Status: Acute Assessment and Plan: continue supplements (7) TIA (transient ischemic attack): Code(s): G45.9 - Transient cerebral ischemic attack, unspecified Status: Acute Assessment and Plan: no s/s of TIA at this time. (8) Vitamin D deficiency: Code(s): E55.9 - Vitamin D deficiency, unspecified Status: Acute Assessment and Plan: continue supplements (9) Mixed hyperlipidemia: Code(s): E78.2 - Mixed hyperlipidemia Status: Acute Assessment and Plan: continue home medications (10) Essential hypertension: Code(s): I10 - Essential (primary) hypertension Status: Acute Assessment and Plan: stable continue home medications DS: Summary Hospital Course Hospital Course: this is a 77-year-old? debility presented to our emergency department due to confusion and weakness.? patient condition has improved since her admission. She will discharge home with outpatient PT OT. The patient denies SOB, CP, palpitation, extremity numbness, lightheadedness, dizziness, constipation, diarrhea, chills, or fever. Time Spent with Patient Time attestation: Total time spent providing and/or coordinating discharge services: Exam Narrative: GENERAL: elderly frail geriatric female in no apparent distress. HEAD: normocephalic, atraumatic. EYES: PERRL. Sclera clear/white. EARS: External ears normal, Hearing grossly intact. NOSE: External nose normal with no obvious nasal discharge, nares without redness, no rhinorrhea. THROAT: Mucous membranes moist, posterior pharynx clear. CARDIOVASCULAR: Regular rate and rhythm RESPIRATORY: Clear to auscultation. Breath sounds equal bilaterally. GASTROINTESTINAL: Abdomen soft, non-tender, nondistended. Bowel sounds are active. SKIN: warm, intact with no suspicious lesions or rash, good texture and turgor. NEURO: awake, alert, and oriented to person, place and time. obvious forgetfulness EXTREMITIES: Normal range of motion. No edema. No calf tenderness. DS: Data Data Completed and Pending Labs on day of discharge: Labs from last 24 hours 01/01/23 01/01/23 05:33 05:33 WBC 10.4
--- NOTE | 2023-01-01 06:29 | PC.NURSE ---
Patient is discharging this morning. She is looking forward to going home. Patient slept well last night. She did need pain medication at bedtime due to shoulder pain.
[2023-01-01 07:45] VITALS: BP 131/64; PULSE 88; RESP 18; TEMP 36.6; O2SAT 96
[2023-01-01] MEDS: cilostazoL 100 MG TABLET PO (08:55)
[2023-01-01] MEDS: ROSUVASTATIN 5 MG TABLET PO (08:56)
[2023-01-01] MEDS: SULFAMETHOXAZOLE/TRIMETHOPRIM 800/160 MG DS TABLET 1 TAB PO (08:56)
[2023-01-01] MEDS: BENZONATATE 100 MG CAPSULE PO (08:56)
[2023-01-01] MEDS: lisinopriL 20 MG TABLET PO (08:56)
[2023-01-01] MEDS: MEGESTROL ACETATE (*CHEMO) 40 MG TABLET PO (08:56)
[2023-01-01 09:18] VITALS: PULSE 88
[2023-01-01] MEDS: METOPROLOL TARTRATE 50 MG TAB 100 MG PO (09:18)
--- NOTE | 2023-01-01 16:00 | PC.NURSE ---
Discharge instructions given to patient and her . Both voiced understanding. Personal belongings sent home with patient. Patient left unit in w/c accompanied by policy writer and patient's . Patient left hospital grounds in privately owned vehicle.
--- NOTE | 2023-01-05 11:50 | PC.NURSE ---
Unable to contact for discharge call back.
== END 2023-01-01 16:00 | disposition home or self-care (01) | DRG 948 ==
PROVIDERS: Nurse Practitioner; Nurse Practitioner Family; Admitting Provider Internal Medicine; PCP Family Medicine; Visit Provider Internal Medicine
DX: R53.1 Weakness (principal); I11.9 Hypertensive heart disease without heart failure; I35.0 Nonrheumatic aortic (valve) stenosis; I44.7 Left bundle-branch block, unspecified; I73.9 Peripheral vascular disease, unspecified; E53.8 Deficiency of other specified B group vitamins; E78.2 Mixed hyperlipidemia; E55.9 Vitamin D deficiency, unspecified; M19.90 Unspecified osteoarthritis, unspecified site; M81.0 Age-related osteoporosis without current pathological fracture; Z86.73 Personal history of transient ischemic attack (TIA), and cerebral infarction without residual deficits; Z91.81 History of falling
CPT/HCPCS: 36415; 80048; 81001; 85027; 97110; 97161; 97165; 97530; 97535; A9270

== ENCOUNTER 2023-01-04 10:56 | Outpatient (RCR) | payer MEDICARE, SELFPAY ==
--- NOTE | 2023-01-04 12:04 | PTOPEVAL1 ---
Assessment and note entered by Portia Hanna DPT Evaluation Information Assessment Status Evaluation Diagnosis 01/01/22 Subjective Information Patient is a 77 year old female who has recently had a hospital stay due to high BP and pain. She now reports that she has decreased balance and weakness. She reports she is able to dress and bathe herself as well as get into and out of the car with no issues but does have her at home to assist her. She has 2 steps to get into the home and she sleeps in bed. She does not drive . Her cooks. She reports she is not have decreased endurance and requires many rest breaks. Reported Pain Level Pain Score 0: Self Report Assessment PT Clinical Summary Patient is a 77 year old female who presents to PT with weakness and decreased balance following recent hospital stay. Rachael demonstrates decreased B UE and LE strength, decreased balance and impaired gait mechanics impairing her ability to complete house hold chores and ambulate house hold distances. She would benefit from skilled PT to address impairments and return to [facility]. Plan of Care Interventions Gait Training,Hot Pack/Cold Pack,Manual Therapy, Neuro Re-education,Patient/Caregiver Educati, Therapeutic Activities,Therapeutic Exercise,Self- Care/Home Management PT Services Indicated Yes Treatment Frequency and 2x weekly for 12 visits Duration These treatments will address the objective and functional deficits as defined above. The patient will be advanced safely and appropriately in order for the patient to progress towards his/her prior level of function. Additional exercises will be introduced and as well as a comprehensive home exercise program upon discharge, if needed, ?to ensure carryover of functional gains achieved in the clinic. This treatment plan has been reviewed and agreement upon by the patient.
--- NOTE | 2023-01-18 11:45 | PTOPDC ---
Assessment and note entered by Portia Hanna DPT Evaluation Information Assessment Status Discharge - Pt Not Presen Diagnosis 01/01/22 Subjective Information Patient is a 77 year old female who has recently had a hospital stay due to high BP and pain. She now reports that she has decreased balance and weakness. She reports she is able to dress and bathe herself as well as get into and out of the car with no issues but does have her at home to assist her. She has 2 steps to get into the home and she sleeps in bed. She does not drive . Her cooks. She reports she is not have decreased endurance and requires many rest breaks. Assessment PT Clinical Summary Patient is being discharged at this time due to presenting to ER and probable SNF placement. Patient was seen for 3 visits with focus on strength and endurance in order to return to PLOF with assistance from her . Plan of Care PT Services Indicated No
--- NOTE | 2023-03-30 13:39 | PCPTNOTE ---
Patient is discharged due to not attending follow up treatments
== END 2023-01-14 15:42 | disposition home or self-care (01) ==
LOC: CHSPT 10:56
PROVIDERS: Visit Provider Nurse Practitioner
DX: R53.1 Weakness (principal); W19.XXXA Unspecified fall, initial encounter
CPT/HCPCS: 97110; 97112; 97161; 97530

== ENCOUNTER 2023-01-16 09:52 | Observation (INO) | payer MEDICARE, SELFPAY ==
[2023-01-16] VITALS (30 sets, daily range): BP systolic 131–175; BP diastolic 77–96; PULSE 85–124; RESP 18–97; TEMP 36.1–37; O2SAT 93–98
--- NOTE | ~2023-01-16 | XR_ITS ---
XR chest 1V portable DATE: 01/16/2023 10:40 INDICATION: Generalized weakness and body aches for 2 days. History of hypertension. TECHNIQUE: January 16, 2023 portable AP chest at 1034 hours COMPARISON: December 18, 2022 portable AP chest FINDINGS: Heart size is normal. Is aortic calcification and mild unfolding. There is widening of the superior mediastinum on the right, likely due to tortuous great vessels. No hilar or mediastinal enlargement is noted otherwise. Mild infiltrate or atelectasis at the lung bases. The lungs otherwise appear clear. No pleural effusi on or pulmonary vascular congestion or pneumothorax is detected. Osteopenia. IMPRESSION: Mild bibasilar infiltrate or atelectasis Reviewed, dictated and finalized at location A. PPER SHOVEL OPERATOR
--- NOTE | ~2023-01-16 | CT_ITS ---
EXAMINATION: CT brain wo con DATE: 01/16/2023 11:13 INDICATION: Dementia, memory loss TECHNIQUE: Computed tomography (CT) of the head was performed without intravenous contrast. The mA wa s adjusted according to patient size. Iterative reconstruction technique was employed. Exam dose: 60 5.33 mGy-cm total exam DLP. COMPARISON: 11/28/2021 CT brain FINDINGS: Bilateral carotid siphon internal carotid artery calcifications. There is prominent nonspec ific diminished attenuation of the cerebral white matter, which may be due to chronic small vessel is chemic changes. No intracranial mass lesion or hemorrhage or recent cerebrovascular accident is detected. No midline shift or mass effect. No subdural or epidural hematoma. Moderate central and cortical cerebral and cerebellar atrophy. The mastoid air cells and included paranasal sinuses are normally developed and aerated. No fracture or bone destruction of the cranial vault. IMPRESSION: Cerebral atherosclerosis and chronic small vessel ischemic changes of the cerebral white matter Moderate cerebral and cerebellar volume loss Reviewed, dictated and finalized at [facility]. Reviewed, dictated and finalized at location A. INE ENGINE ASSEMBLER
[2023-01-16] MEDS: SODIUM CHLORIDE 0.9% IV 1,000 ML 999 ML IV CONT (10:17)
--- NOTE | 2023-01-16 10:17 | ECG_ITS ---
Measurements Intervals [place] Rate: 120 P: 87 MA: 151 QRS: 29 QRSD: 131 T: 122 QT: 320 QTc: 453 Interpretive Statements SINUS TACHYCARDIA LEFT BUNDLE BRANCH BLOCK ABNORMAL ECG COMPARED TO ECG 12/18/2022 17:18:10 NO SIGNIFICANT CHANGES Electronically Signed On 01-18-2023 13:48:43 PRIVATE SECURITY GUARD by Anastacio Powell M.D.
--- NOTE | 2023-01-16 10:33 | ED.GENADULT ---
HPI - General Adult General Chief complaint: Unspecified Stated complaint: AMBULANCE - geralized pain/weakness Time Seen by Provider: 01/16/23 10:15 Source: patient and family Mode of arrival: EMS History of Present Illness HPI narrative: patient is brought by EMS 77-year-old white female resident says she has not been eating and drinking very much for the last 2 weeks. Patient is admitted to the hospital 2 or 3 weeks ago for the same thing weakness thought to have a UTI was treated for that and should have been sent home on 4 more days of a cephalosporin against E coli. She saw her doctor 5 days ago on the and said he was going to send the patient to the neurologist. Her doctor did some testing for memory said she had dementia. said she was admitted for 2 weeks in the hospital and then was placed on physical therapy as an outpatient. He said she was here 2 days ago and was unsteady on her feet then. She has been able to walk since yesterday and did not drink anything all day yesterday or today and did not eat anything yesterday or today. ( I suspect also may have some dementia. ) This morning he was unable to change her diaper and he called the daughter who came over and helped change her. Patient denies any reason for being in the emergency department denies any pain or shortness of breath or difficulty breathing or any other complaints. Related Data Home Medications Medication Instructions Recorded Confirmed omega-3 fatty acids 1,000 mg 1,000 mg PO HS 08/20/20 01/16/23 capsule (Fish Oil Concentrate) amlodipine 2.5 mg tablet 2.5 mg PO QHS 12/22/22 01/16/23 lisinopril 20 mg tablet 20 mg PO DAILY 12/22/22 01/16/23 aspirin 81 mg tablet 81 mg PO DAILY 01/16/23 01/16/23 Allergies Allergy/AdvReac Type Severity Reaction Status Date / Time No Known Allergies Allergy Mild NONE Verified 01/16/23 10:06 Review of Systems Constitutional: Constitutional: Reports weakness Comments: Chronic pain in her shoulders and her hip. Going to physical therapy for strengthening Eyes: Eyes: Denies blurry vision and Denies change in vision ENT: Denies dysphagia, Denies dizziness and Denies nasal congestion Cardiovascular: Cardiovascular: Denies chest pain, Denies syncope and Denies irregular heart rhythm Respiratory: Respiratory: Denies cough Gastrointestinal: Gastrointestinal: Reports no additional gastrointestinal complaints, Denies abdominal pain and Denies hematochezia Genitourinary: Genitourinary: Reports as per HPI Musculoskeletal: Musculoskeletal: Reports as per HPI Neurologic: Denies headache(s), Denies focal weakness, Denies loss of vision, Reports memory loss and Denies numbness Psychiatric: Psychiatric: Denies depression Hematologic/Lymphatic: Hematologic/Lymphatic: Denies easy bleeding and Denies easy bruising PMF Past Medical History Medical History Essential hypertension Left bundle branch block Mild aortic stenosis Mixed hyperlipidemia Osteoarthritis Osteoporosis Peripheral vascular disease Systolic dysfunction Tobacco abuse Transient ischemic attack Vitamin B12 deficiency Vitamin D deficiency Surgical History Surgical History History of appendectomy History of arthroscopy of left knee History of tonsillectomy History of tubal ligation History of vascular surgery (2007) Right common iliac artery stent. Family History Family History Sibling Depression Patient's sister is Father Family history of emphysema Mother Family history of coronary artery disease Other Hypertension Social History Social History (Updated 01/08/23 @ 23:05 by Natalie Flores MD) Social History: Surrogate decision maker: Martin Thompson, spouse. Code status: Full code. Smoking packs per day: 0.
[2023-01-16 10:38] LABS: Hematocrit 35.2 % (35.0-42.0); Hemoglobin 11.6 g/dL (11.7-13.8); Immature Platelet Fraction Pct 0.7 % (1.0-7.0); Mean Corpuscular Hemoglobin 28.4 pg (27.0-31.0); Mean Corpuscular Volume 86.3 fL (78.0-102.0); Mean Platelet Volume 8.5 fl (9.2-11.8); Platelet Count Result 706 K/mm3 (150-420); Red Blood Count 4.08 M/mm3 (4.20-5.40); Red Cell Distribution Width 15.6 % (11.6-14.4); White Blood Count 13.6 K/mm3 (4.8-10.8)
[2023-01-16 10:51] LABS: Alanine Aminotransferase 19 U/L (14-59); Alkaline Phosphatase 85 U/L (46-116); Anion Gap 12 mmol/L (8-16); Aspartate Amino Transferase 13 U/L (15-37); Bilirubin,Total 0.5 mg/dL (0.00-1.00); Blood Urea Nitrogen 8 mg/dL (7-18); Calcium 8.9 mg/dL (8.5-10.1); Carbon Dioxide 24 mmol/L (21-32); Chloride 105 mmol/L (98-108); Estimated CRCL calculation 40 ml/min; Estimated Glomerular Filt Rate > 60; Glucose 121 mg/dL (70-99); Magnesium 2.1 mg/dL (1.8-2.4); Osmolality Calculated 291 mOsm/kg (285-295); Potassium 3.7 mmol/L (3.5-5.1); Sodium 141 mmol/L (136-145); Total Protein 7.1 g/dL (6.4-8.2); Troponin I 31.1 ng/L (0.00-60.4)
[2023-01-16] MEDS: ACETAMINOPHEN 325 MG TABLET 650 MG PO (10:52)
[2023-01-16 10:55] LABS: Add Urine Microscopic? YES; Appearance Urine Clear (Clear); Bilirubin Urine Negative (Negative); Blood Urine Negative (Negative); Color Urine Yellow (Yellow); Glucose Urine UA Negative (Negative); Ketones Urine Trace (Negative); Leukocyte Esterase Ur Negative (Negative); Nitrate Urine Negative (Negative); Protein Urine 1+ (Negative); Specific Grav Ur >= 1.030 (1.010-1.020); Urobilinogen Urine 0.2 mg/dL (0.2-1.0)
[2023-01-16 11:00] LABS: RBC Urine None seen /hpf (0-2); WBC Urine None seen /hpf (0-3)
[2023-01-16 11:01] LABS: Bacteria Urine Trace /hpf; Squamous Epithelial Cell Urine Rare /hpf (Few)
[2023-01-16 11:09] LABS: Influenza A QL RT-PCR Negative (Negative); Influenza B QL RT-PCR Negative (Negative); SARS-CoV-2 RNA PCR Negative (Negative)
[2023-01-16 11:10] LABS: RSV RNA, RT-PCR Negative (Negative)
[2023-01-16] MEDS: KETOROLAC 15 MG/ML VIAL (*BKC) IV PUSH (11:46)
[2023-01-16 12:30] LABS: Hemoglobin A1C 5.9 % (<5.7)
[2023-01-16 12:37] LABS: NT Pro B Type Natriuretic Pept 8109 pg/mL (0-450)
--- NOTE | 2023-01-16 12:55 | ADMGEN ---
This patient, Rachael Thompson, was admitted to 2nd Floor Room 206-1. family oriented to hospital policies and general routines including ID bracelet, bed and alarms, visiting hours, pain management, procedures, bathroom and other care routines, personal items, smoking policy, room service/diet, and visiting hours. Information on how to activate the Rapid Response Team has been discussed. Patient/Family are encouraged to report perceived risks to care and to ask questions if they do not understand what they are told or what they should do.
[2023-01-16] MEDS: METOPROLOL TARTRATE 50 MG TAB 100 MG PO (16:49)
[2023-01-16] MEDS: MEGESTROL ACETATE (*CHEMO) 40 MG TABLET PO (16:49)
[2023-01-16] MEDS: DONEPEZIL HCL 5 MG TABLET PO (16:50)
[2023-01-16] MEDS: OMEGA 3 POLYUNSAT FATTY ACIDS 1 GM CAP PO ×3 (17:07→17:10)
[2023-01-16] MEDS: cilostazoL 100 MG TABLET PO (17:07)
[2023-01-16] MEDS: amLODIPine BESYLATE 2.5 MG TABLET PO (17:07)
[2023-01-17] VITALS (8 sets, daily range): BP systolic 122–137; BP diastolic 62–75; PULSE 88–115; RESP 16–18; TEMP 36.3–36.6; O2SAT 94–95
[2023-01-17 05:09] LABS: Hematocrit 30.5 % (35.0-42.0); Hemoglobin 9.8 g/dL (11.7-13.8); Immature Platelet Fraction Pct 0.7 % (1.0-7.0); Mean Corpuscular HGB Conc 32.1 g/dL (32.0-36.0); Mean Corpuscular Hemoglobin 27.8 pg (27.0-31.0); Mean Corpuscular Volume 86.6 fL (78.0-102.0); Mean Platelet Volume 8.5 fl (9.2-11.8); Platelet Count Result 629 K/mm3 (150-420); Red Blood Count 3.52 M/mm3 (4.20-5.40); Red Cell Distribution Width 15.8 % (11.6-14.4); White Blood Count 11.5 K/mm3 (4.8-10.8)
[2023-01-17 05:33] LABS: Alanine Aminotransferase 29 U/L (14-59); Albumin Level 1.7 g/dL (3.4-5.0); Alkaline Phosphatase 80 U/L (46-116); Anion Gap 11 mmol/L (8-16); Aspartate Amino Transferase 28 U/L (15-37); Bilirubin,Total 0.3 mg/dL (0.00-1.00); Blood Urea Nitrogen 13 mg/dL (7-18); Calcium 8.3 mg/dL (8.5-10.1); Carbon Dioxide 23 mmol/L (21-32); Chloride 107 mmol/L (98-108); Estimated CRCL calculation 49 ml/min; Estimated Glomerular Filt Rate > 60; Glucose 98 mg/dL (70-99); Osmolality Calculated 292 mOsm/kg (285-295); Potassium 3.4 mmol/L (3.5-5.1); Sodium 141 mmol/L (136-145)
--- NOTE | 2023-01-17 08:22 | PM.IMHP ---
H&P: HPI History of Present Illness Date/Time: 01/17/23 08:22 Chief Complaint: weakness Review of Systems Review of Systems: Brandon presented to our emergency department with complaints of weakness. Patient has a past medical history of hypertension, left bundle-branch branch, aortic stenosis, hyperlipidemia, osteoarthritis, osteoporosis, PVD, congestive heart failure systolic, tobacco abuse, TIAs, vitamin B 12 deficiency and vitamin-D deficiency. Patient was recently discharged from our bed program01/01/2023. According to patient her yesterday she became so weak that she could not walk and complained of generalized body pain. At that time her called his daughter because he was unable to care for the patient and EMS was called patient was brought to our emergency department. Patient was diagnosed with possible pneumonia she will meet with case coordination tomorrow per for possible SNF placement. Her goal is to return home. WBCs 13.6, hemoglobin 11.6, hematocrit 35.2, platelets 706, sodium 142, potassium 3.7, BUN 8, creatinine 0.79, blood sugar 121, troponin 31.1 patient negative for influenza COVID and RSV chest x-ray indicate infiltrate. patient only complaint is that she is having left shoulder pain. The patient denies SOB, CP, palpitation, extremity numbness, lightheadedness, dizziness, constipation, diarrhea, chills, or fever. All systems reviewed & are unremarkable except as noted in HPI and below PMFSH Past Medical History Medical History Essential hypertension Left bundle branch block Mild aortic stenosis Mixed hyperlipidemia Osteoarthritis Osteoporosis Peripheral vascular disease Systolic dysfunction Tobacco abuse Transient ischemic attack Vitamin B12 deficiency Vitamin D deficiency Surgical History Surgical History History of appendectomy History of arthroscopy of left knee History of tonsillectomy History of tubal ligation History of vascular surgery (2007) Right common iliac artery stent. Family History Family History Sibling Depression Patient's sister is Father Family history of emphysema Mother Family history of coronary artery disease Other Hypertension Social History Social History (Updated 01/08/23 @ 23:05 by Natalie Flores MD) Social History: Surrogate decision maker: Martin Thompson, spouse. Code status: Full code. Smoking packs per day: 0.5 Smoking cigarettes per day: 10.0 Years smoked: 60 Smoking pack-years: 30.00 Smoking status: Former smoker Tobacco type: cigarettes Second hand tobacco smoke exposure: Yes Smoking end date: 12/23/22 Additional smoking assessment comments: 5 per day currently x 50 years Alcohol intake: former Substance use: never Substance use type: does not use Lack of Transportation: No Lack of Food: Never True Current Housing: I Have Housing Concerned About Future Housing: No Difficulty Paying Gas/Electric Bills: No Difficulty Paying for Meds: No Currently Unemployed: No Education: Decline to Answer Difficulty w/ Childcare or Family Care: No Living arrangements: with family Additional living arrangements comments: The patient lives with her in [place]. 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: No Meds Home Medications and Allergies Home Medications Medication Instructions Recorded Confirmed Type omega-3 fatty acids 1,000 mg 1,000 mg PO HS 08/20/20 01/16/23 History capsule (Fish Oil Concentrate) acetaminophen 325 mg tablet (Mapap 650 mg PO Q6H PRN Mild Pain (1-3) 12/08/21 01/16/23 Rx (acetaminophen)) Or Fever #20 tabs metoprolol tartrate 50 mg tablet 100 mg PO Q12HR #360 tabs 07/17/22 01/16/23 Rx ros
[2023-01-17] MEDS: METOPROLOL TARTRATE 50 MG TAB 100 MG PO ×2 (09:21→20:03)
[2023-01-17] MEDS: lisinopriL 20 MG TABLET PO (09:22)
[2023-01-17] MEDS: ASPIRIN 81 MG CHEWABLE TABLET PO (09:22)
[2023-01-17] MEDS: ROSUVASTATIN 5 MG TABLET PO (09:22)
[2023-01-17] MEDS: MEGESTROL ACETATE (*CHEMO) 40 MG TABLET PO ×2 (09:22→17:29)
[2023-01-17] MEDS: cilostazoL 100 MG TABLET PO ×2 (09:22→17:29)
[2023-01-17] MEDS: ENOXAPARIN 40 MG/0.4 ML SYRINGE SUB-Q (09:27)
[2023-01-17] MEDS: HYDROcodone/acetaminophen (*CRX) 5-325 MG TABLET 1 TAB PO (11:11)
[2023-01-17] MEDS: LIDOCAINE 5% PATCH 1 PATCH TRANSDERM (17:28)
[2023-01-17] MEDS: BENZONATATE 100 MG CAPSULE 200 MG PO (17:29)
[2023-01-17] MEDS: guaiFENesin 12 HR 600 MG TABCR 1200 MG PO (20:03)
[2023-01-17] MEDS: amLODIPine BESYLATE 2.5 MG TABLET PO (20:03)
[2023-01-17] MEDS: DONEPEZIL HCL 5 MG TABLET PO (20:04)
[2023-01-18 03:09] VITALS: PULSE 109
[2023-01-18 05:18] LABS: Hematocrit 30.5 % (35.0-42.0); Hemoglobin 9.9 g/dL (11.7-13.8); Immature Platelet Fraction Pct 0.7 % (1.0-7.0); Mean Corpuscular HGB Conc 32.5 g/dL (32.0-36.0); Mean Corpuscular Hemoglobin 28.1 pg (27.0-31.0); Mean Corpuscular Volume 86.6 fL (78.0-102.0); Mean Platelet Volume 8.4 fl (9.2-11.8); Platelet Count Result 666 K/mm3 (150-420); Red Blood Count 3.52 M/mm3 (4.20-5.40); White Blood Count 12.9 K/mm3 (4.8-10.8)
[2023-01-18 05:32] LABS: Alanine Aminotransferase 56 U/L (14-59); Albumin Level 1.7 g/dL (3.4-5.0); Alkaline Phosphatase 102 U/L (46-116); Anion Gap 12 mmol/L (8-16); Aspartate Amino Transferase 43 U/L (15-37); Bilirubin,Total 0.3 mg/dL (0.00-1.00); Blood Urea Nitrogen 16 mg/dL (7-18); Calcium 8.5 mg/dL (8.5-10.1); Carbon Dioxide 23 mmol/L (21-32); Chloride 106 mmol/L (98-108); Estimated CRCL calculation 44 ml/min; Estimated Glomerular Filt Rate > 60; Glucose 110 mg/dL (70-99); Osmolality Calculated 294 mOsm/kg (285-295); Potassium 3.5 mmol/L (3.5-5.1); Sodium 141 mmol/L (136-145); Total Protein 6.1 g/dL (6.4-8.2)
[2023-01-18 08:00] VITALS: BP 132/65; PULSE 120; PULSE 123; RESP 16; TEMP 36.4; O2SAT 97
[2023-01-18] MEDS: HYDROcodone/acetaminophen (*CRX) 5-325 MG TABLET 1 TAB PO (08:09)
[2023-01-18] MEDS: LIDOCAINE 5% PATCH 1 PATCH TRANSDERM (08:10)
[2023-01-18] MEDS: ENOXAPARIN 40 MG/0.4 ML SYRINGE SUB-Q (09:31)
[2023-01-18] MEDS: BENZONATATE 100 MG CAPSULE 200 MG PO (09:31)
[2023-01-18] MEDS: MEGESTROL ACETATE (*CHEMO) 40 MG TABLET PO (09:32)
[2023-01-18] MEDS: ASPIRIN 81 MG CHEWABLE TABLET PO (09:32)
[2023-01-18] MEDS: lisinopriL 20 MG TABLET PO (09:32)
[2023-01-18] MEDS: cilostazoL 100 MG TABLET PO (09:32)
[2023-01-18] MEDS: ROSUVASTATIN 5 MG TABLET PO (09:32)
[2023-01-18] MEDS: guaiFENesin 12 HR 600 MG TABCR 1200 MG PO (09:32)
[2023-01-18 09:33] VITALS: PULSE 122
[2023-01-18] MEDS: METOPROLOL TARTRATE 50 MG TAB 100 MG PO (09:33)
--- NOTE | 2023-01-18 11:50 | PM.DS ---
DS: Admitting Diagnosis Discharge Date 01/18/2023 Admitting Diagnosis pna, weakness DS: Discharge Diagnosis Discharge Diagnosis (1) Pneumonia: Code(s): J18.9 - Pneumonia, unspecified organism Status: Acute Assessment and Plan: chest x-ray indicate infiltration continue azithromycin Rocephin WBC 13.6>11.5>12.9 blood culture pending will dc with Cefdinir (2) Generalized muscle weakness: Code(s): M62.81 - Muscle weakness (generalized) Status: Acute Assessment and Plan: PT/OT to eval and treat possible SNF placement patient will transition to [facility] (3) Dementia: Code(s): F03.90 - Unspecified dementia, unspecified severity, without behavioral disturbance, psychotic disturbance, mood disturbance, and anxiety Status: Acute Assessment and Plan: continue home medication (4) Systolic dysfunction: Code(s): I51.9 - Heart disease, unspecified Status: Acute Assessment and Plan: stable (5) Vitamin B12 deficiency: Code(s): E53.8 - Deficiency of other specified B group vitamins Status: Acute Assessment and Plan: continue supplement (6) TIA (transient ischemic attack): Code(s): G45.9 - Transient cerebral ischemic attack, unspecified Status: Acute (7) Vitamin D deficiency: Code(s): E55.9 - Vitamin D deficiency, unspecified Status: Acute (8) Mixed hyperlipidemia: Code(s): E78.2 - Mixed hyperlipidemia Status: Acute Assessment and Plan: continue home medication (9) Essential hypertension: Code(s): I10 - Essential (primary) hypertension Status: Acute Assessment and Plan: stable vital signs as ordered will adjust medication as needed DS: Summary Hospital Course Hospital Course: Brandon presented to our emergency department with complaints of weakness.? Patient has a past medical history of hypertension, left bundle-branch branch, aortic stenosis, hyperlipidemia, osteoarthritis, osteoporosis, PVD, congestive heart failure? systolic, tobacco abuse, TIAs, vitamin B 12 deficiency and vitamin-D deficiency.? Patient was recently discharged from our bed program01/01/2023.? According to patient her yesterday she became so weak that she could not walk and complained of generalized body pain.? At that time her called his daughter because he was unable to care for the patient and EMS was called patient was brought to our emergency department.? Patient was diagnosed with possible P NA. the family and patient has agreed to transition into [facility] for PT OT rehab. The patient denies SOB, CP, palpitation, extremity numbness, lightheadedness, dizziness, constipation, diarrhea, chills, or fever. Time Spent with Patient Time attestation: Total time spent providing and/or coordinating discharge services: Exam Narrative: GENERAL: Frail elderly female, in no apparent distress. HEAD: normocephalic, atraumatic. EYES: PERRL. Sclera clear/white. Vision is grossly intact. EARS: External ears normal, auditory canals clear and without drainage, TMs normal without perforation. Hearing grossly intact. NOSE: External nose normal with no obvious nasal discharge, nares without redness, no rhinorrhea. THROAT: Mucous membranes moist, posterior pharynx clear. NECK: Neck supple, non-tender without lymphadenopathy, masses or thyromegaly. CARDIOVASCULAR: Regular rate and rhythm without murmurs, gallops, or rubs. RESPIRATORY: Clear to auscultation. Breath sounds equal bilaterally. No wheezes, rales, or rhonchi. GASTROINTESTINAL: Abdomen soft, non-tender, nondistended. Bowel sounds are active. No hepato-splenomegaly, or palpable masses. No guarding. SKIN: warm, intact with no suspicious lesions or rash, good texture and turgor. NEURO: awake, alert, and oriented to person, place and time. There were no obvious focal neurologic abnormalities. EXTREMITIES: Normal range of motion.
[2023-01-18 12:00] VITALS: PULSE 109
--- NOTE | 2023-01-18 13:45 | PC.NURSE ---
Pt discharged to [facility] in [facility]. Report called to Baljit. Pt information folder given to spouse to give to SNF. Discharge information faxed to snf. Pt assisted in dressing and transfering to then to family car. Gait belt used in transfer. All pt belongings returned.
--- NOTE | 2023-01-19 12:26 | PC.NURSE ---
[facility] nurse states they received and understood the discharge instructions.
== END 2023-01-18 13:45 ==
LOC: CHSED 11:49 → CHS2ND 12:33
PROVIDERS: Nurse Practitioner; Admitting Provider Internal Medicine; Emergency Provider Emergency Medicine; PCP Family Medicine; Visit Provider Internal Medicine
DX: J18.9 Pneumonia, unspecified organism (principal); I11.0 Hypertensive heart disease with heart failure; I50.9 Heart failure, unspecified; I35.0 Nonrheumatic aortic (valve) stenosis; I73.9 Peripheral vascular disease, unspecified; E78.2 Mixed hyperlipidemia; E53.8 Deficiency of other specified B group vitamins; E55.9 Vitamin D deficiency, unspecified; M19.90 Unspecified osteoarthritis, unspecified site; M81.0 Age-related osteoporosis without current pathological fracture; F17.210 Nicotine dependence, cigarettes, uncomplicated; F03.90 Unspecified dementia, unspecified severity, without behavioral disturbance, psychotic disturbance, mood disturbance, and anxiety; Z79.82 Long term (current) use of aspirin; Z86.73 Personal history of transient ischemic attack (TIA), and cerebral infarction without residual deficits; Z20.822 Contact with and (suspected) exposure to COVID-19; Z79.899 Other long term (current) drug therapy
CPT/HCPCS: 36415; 70450; 71045; 80053; 81001; 83036; 83735; 83880; 84484; 85027; 85055; 87040; 87637; 92610; 93005; 96361; 96365; 96366; 96367; 96372; 96375; 97110; 97162; 97530; 99285; A9270; G0378; J0456; J0696; J1650; J1885; J7030

== ENCOUNTER 2023-04-02 17:48 | Inpatient (IN) | payer MEDICARE, SELFPAY ==
[2023-04-02] VITALS (20 sets, daily range): BP systolic 115–163; BP diastolic 65–102; PULSE 102–121; RESP 17–19; TEMP 36.4–37.1; O2SAT 91–96; BMI 16.9
--- NOTE | ~2023-04-02 | XR_ITS ---
EXAMINATION: [id number] DATE: 04/02/2023 20:49 INDICATION: Left knee pain. TECHNIQUE: 2 views of left knee were obtained. COMPARISON: None. FINDINGS: Bone alignment is normal. No fracture. Osteopenia is noted. There is moderate osteoarthriti s of lateral compartment and mild osteoarthritis of medial and patellofemoral compartments. There is chondrocalcinosis of the menisci. There is a small knee joint effusion. IMPRESSION: 1. Moderate left knee osteoarthritis. 2. Small left knee joint effusion. Reviewed, dictated and finalized at location E.
--- NOTE | ~2023-04-02 | XR_ITS ---
EXAMINATION: XR ankle LT min 3V DATE: 04/02/2023 20:48 INDICATION: Left ankle pain. Erythema. TECHNIQUE: 4 views of left ankle were obtained. COMPARISON: Left ankle radiographs 03/26/2021 FINDINGS: Bone alignment is normal. No fracture. There is diffuse osteopenia. There is no evidence of osteomyelitis. There is mild osteoarthritis of talonavicular joint. There are enthesophytes at the p osterior and plantar aspects of calcaneal tuberosity. IMPRESSION: 1. Mild osteoarthritis of talonavicular joint. Reviewed, dictated and finalized at location E.
--- NOTE | ~2023-04-02 | XR_ITS ---
EXAMINATION: XR chest 1V portable DATE: 04/02/2023 19:21 INDICATION: Weakness and cough. TECHNIQUE: A single frontal view of the chest was obtained. COMPARISON: Chest single view 01/16/2023, CT abdomen and pelvis 11/17/2023 FINDINGS: There is no pneumonia, pleural effusion, or pneumothorax. The heart size is normal. IMPRESSION: 1. No acute cardiopulmonary disease. Reviewed, dictated and finalized at location E.
--- NOTE | 2023-04-02 18:10 | ED.WEAKNESS ---
HPI - Weakness General Chief complaint: Weakness Stated complaint: weakness/pain Time Seen by Provider: 04/02/23 17:51 Source: patient, EMS and RN notes reviewed Mode of arrival: EMS History of Present Illness HPI Narrative: Patient comes by ambulance. Her states that she has been having difficulty for the last 3 days with increased pain in her lower extremities especially on the left. She was discharged from shelter after completing her physical therapy March 18 about 2 weeks ago. She has been shaky nervous difficult to stand and generalized weakness. Spouse unable to get her to the bathroom. She has a footdrop on the left and had a AFO brace on that foot but was not discharged with the AFO brace. She complains of a lot of pain in that left ankle as well. He also thinks that she has been having some increased cough has been productive otherwise no fever no chills. No urinary symptom. No nausea vomiting diarrhea. Complaint: generalized weakness Onset (ago): day(s) (3) Duration: intermittent Location: generalized Migration: none Severity: moderate Relieving factors: none Exacerbating factors: movement Associated symptoms: other (productive cough) Related Data Home Medications Medication Instructions Recorded Confirmed omega-3 fatty acids 1,000 mg 1,000 mg PO HS 08/20/20 04/02/23 capsule (Fish Oil Concentrate) amlodipine 2.5 mg tablet 2.5 mg PO QHS 12/22/22 04/02/23 aspirin 81 mg tablet 81 mg PO DAILY 01/16/23 04/02/23 Allergies Allergy/AdvReac Type Severity Reaction Status Date / Time No Known Allergies Allergy Mild NONE Verified 01/16/23 10:06 Review of Systems Review of Systems: All systems reviewed & are unremarkable except as noted in HPI and below Constitutional: Constitutional: Denies chills and Denies fever(s) Gastrointestinal: Gastrointestinal: Denies abdominal pain, Denies constipation, Denies diarrhea, Denies nausea and Denies vomiting Genitourinary: Genitourinary: Denies dysuria Musculoskeletal: Musculoskeletal: Reports myalgias PMFSH Past Medical History Medical History Essential hypertension Left bundle branch block Mild aortic stenosis Mixed hyperlipidemia Osteoarthritis Osteoporosis Peripheral vascular disease Systolic dysfunction Tobacco abuse Transient ischemic attack Vitamin B12 deficiency Vitamin D deficiency Surgical History Surgical History History of appendectomy History of arthroscopy of left knee History of tonsillectomy History of tubal ligation History of vascular surgery (2007) Right common iliac artery stent. Family History Family History Sibling Depression Patient's sister is Father Family history of emphysema Mother Family history of coronary artery disease Other Hypertension Social History Social History Social History: Surrogate decision maker: Martin Thompson, spouse. Code status: Full code. Smoking packs per day: 1 Smoking cigarettes per day: 20.0 Years smoked: 64 Smoking pack-years: 64.00 Smoking status: Former smoker Tobacco type: cigarettes Second hand tobacco smoke exposure: Yes Smoking end date: 12/23/22 Additional smoking assessment comments: 5 per day currently x 50 years Alcohol intake: never Substance use: never Substance use type: does not use Lack of Transportation: No Lack of Food: Never True Current Housing: I Have Housing Concerned About Future Housing: No Difficulty Paying Gas/Electric Bills: No Difficulty Paying for Meds: No Currently Unemployed: No Education: Bachelor's Degree Difficulty w/ Childcare or Family Care: No Living arrangements: with family Additional living arrangements comments: The patient lives with her in
--- NOTE | 2023-04-02 18:19 | PCDIET ---
1748 Yellow fall clasp applied
[2023-04-02 18:27] LABS: Basophils Absolute Auto 0.09 K/mm3 (0.00-0.10); Basophils Percent Auto 0.6 % (0.0-1.0); Eosinophils Absolute Auto 0.12 K/mm3 (0.02-0.50); Eosinophils Percent Auto 0.8 % (1.0-6.0); Hematocrit 43.7 % (35.0-42.0); Hemoglobin 14.2 g/dL (11.7-13.8); Immature Granulocyte Absolute 0.17 K/mm3 (0.00-0.00); Immature Granulocyte Percent A 1.1 % (0.0-0.0); Lymphocytes Absolute Auto 1.75 K/mm3 (1.10-4.50); Mean Corpuscular HGB Conc 32.5 g/dL (32.0-36.0); Mean Corpuscular Hemoglobin 28.7 pg (27.0-31.0); Mean Corpuscular Volume 88.5 fL (78.0-102.0); Mean Platelet Volume 9.4 fl (9.2-11.8); Monocytes Absolute Auto 1.27 K/mm3 (0.10-0.90); Neutrophils Absolute Auto 12.5 K/mm3 (1.7-7.2); Neutrophils Percent Auto 78.5 % (50.0-70.0); Platelet Count Result 374 K/mm3 (150-420); Red Blood Count 4.94 M/mm3 (4.20-5.40); Red Cell Distribution Width 18.2 % (11.6-14.4); White Blood Count 15.9 K/mm3 (4.8-10.8)
[2023-04-02 18:47] LABS: Lactic Acid Reflex 1.6 mmol/L (0.4-2.0)
[2023-04-02 18:50] LABS: Alanine Aminotransferase 12 U/L (14-59); Albumin Level 3.1 g/dL (3.4-5.0); Alkaline Phosphatase 83 U/L (46-116); Anion Gap 16 mmol/L (8-16); Aspartate Amino Transferase < 10 U/L (15-37); Bilirubin,Total 0.4 mg/dL (0.00-1.00); Blood Urea Nitrogen 22 mg/dL (7-18); Calcium 9.6 mg/dL (8.5-10.1); Carbon Dioxide 23 mmol/L (21-32); Chloride 104 mmol/L (98-108); Estimated CRCL calculation 31 ml/min; Estimated Glomerular Filt Rate 52; Glucose 170 mg/dL (70-99); Magnesium 2.3 mg/dL (1.8-2.4); Osmolality Calculated 303 mOsm/kg (285-295); Potassium 3.9 mmol/L (3.5-5.1); Sodium 143 mmol/L (136-145); Total Protein 7.9 g/dL (6.4-8.2)
[2023-04-02 19:08] LABS: Appearance Urine Clear (Clear); Bilirubin Urine Negative (Negative); Blood Urine Negative (Negative); Color Urine Yellow (Yellow); Glucose Urine UA Negative (Negative); Ketones Urine Negative (Negative); Leukocyte Esterase Ur Negative LEU/UL (Negative); Nitrate Urine Negative (Negative); Protein Urine Negative (Negative); Specific Grav Ur 1.025 (1.010-1.020); Urobilinogen Urine 0.2 mg/dL (0.2-1.0)
[2023-04-02 19:09] LABS: Add Urine Microscopic? NO
--- NOTE | 2023-04-02 19:14 | PC.NURSE ---
report to rashid sousa all questions answered.
[2023-04-02 19:45] LABS: Uric Acid 4.5 mg/dL (2.6-6.0)
--- NOTE | 2023-04-02 19:57 | PC.NURSE ---
Pt assigned to room 208
--- NOTE | 2023-04-02 19:59 | PC.NURSE ---
LR 1000ml started by EMS completed at 1954
--- NOTE | 2023-04-02 20:01 | PC.NURSE ---
red area on left ankle/foot outlined with wound marker
--- NOTE | 2023-04-02 20:10 | PC.NURSE ---
pt to be admitted as observation into room 208
--- NOTE | 2023-04-02 20:48 | PC.NURSE ---
pt denies pain while at rest. pt states that she hurts when she moves her left leg
[2023-04-02] MEDS: DONEPEZIL HCL 5 MG TABLET BY MOUTH (21:36)
[2023-04-02] MEDS: DICLOFENAC SODIUM 1% 100 GM GEL (*BKC) 1 APPLIC TOPICAL (21:36)
[2023-04-02] MEDS: OMEGA 3 POLYUNSAT FATTY ACIDS 1 GM CAP PO (21:36)
[2023-04-02] MEDS: HYDROcodone/acetaminophen (*CRX) 5-325 MG TABLET 1 TAB PO (21:38)
[2023-04-02] MEDS: METOPROLOL TARTRATE 50 MG TAB 100 MG PO (21:41)
[2023-04-02] MEDS: amLODIPine BESYLATE 2.5 MG TABLET PO (21:41)
[2023-04-02] MEDS: HEPARIN SODIUM 5,000 UNITS/ML VIAL 5000 UNITS SUB-Q (21:42)
--- NOTE | 2023-04-02 22:01 | ADMGEN ---
This patient, Rachael Thompson, was admitted to 2nd Floor Room 208-2. Patient oriented to hospital policies and general routines including ID bracelet, bed and alarms, visiting hours, pain management, procedures, bathroom and other care routines, personal items, smoking policy, room service/diet, and visiting hours. Information on how to activate the Rapid Response Team has been discussed. Patient is encouraged to report perceived risks to care and to ask questions if they do not understand what they are told or what they should do.
[2023-04-03] VITALS (8 sets, daily range): BP systolic 134–172; BP diastolic 22–85; PULSE 80–109; RESP 14–18; TEMP 36.1–36.4; O2SAT 91–94
[2023-04-03 05:13] LABS: Basophils Absolute Auto 0.07 K/mm3 (0.00-0.10); Basophils Percent Auto 0.6 % (0.0-1.0); Eosinophils Absolute Auto 0.14 K/mm3 (0.02-0.50); Eosinophils Percent Auto 1.2 % (1.0-6.0); Immature Granulocyte Absolute 0.08 K/mm3 (0.00-0.00); Immature Granulocyte Percent A 0.7 % (0.0-0.0); Lymphocytes Absolute Auto 2.05 K/mm3 (1.10-4.50); Lymphocytes Percent Auto 17.3 % (18.0-42.0); Mean Corpuscular HGB Conc 31.6 g/dL (32.0-36.0); Mean Corpuscular Hemoglobin 28.2 pg (27.0-31.0); Mean Corpuscular Volume 89.2 fL (78.0-102.0); Mean Platelet Volume 9.6 fl (9.2-11.8); Monocytes Absolute Auto 1.11 K/mm3 (0.10-0.90); Monocytes Percent Auto 9.4 % (2.0-11.0); Neutrophils Absolute Auto 8.4 K/mm3 (1.7-7.2); Neutrophils Percent Auto 70.8 % (50.0-70.0); Platelet Count Result 308 K/mm3 (150-420); Red Blood Count 4.26 M/mm3 (4.20-5.40); Red Cell Distribution Width 18.2 % (11.6-14.4); White Blood Count 11.9 K/mm3 (4.8-10.8)
[2023-04-03 05:37] LABS: Alanine Aminotransferase 11 U/L (14-59); Albumin Level 2.6 g/dL (3.4-5.0); Alkaline Phosphatase 70 U/L (46-116); Anion Gap 12 mmol/L (8-16); Aspartate Amino Transferase < 10 U/L (15-37); Bilirubin,Total 0.3 mg/dL (0.00-1.00); Blood Urea Nitrogen 18 mg/dL (7-18); Calcium 8.9 mg/dL (8.5-10.1); Carbon Dioxide 23 mmol/L (21-32); Chloride 108 mmol/L (98-108); Estimated CRCL calculation 36 ml/min; Estimated Glomerular Filt Rate > 60; Glucose 96 mg/dL (70-99); Osmolality Calculated 297 mOsm/kg (285-295); Potassium 3.6 mmol/L (3.5-5.1); Sodium 143 mmol/L (136-145); Total Protein 6.7 g/dL (6.4-8.2)
[2023-04-03 05:46] LABS: CRP 17.4 mg/dL (0.0-0.9)
[2023-04-03] MEDS: DICLOFENAC SODIUM 1% 100 GM GEL (*BKC) 1 APPLIC TOPICAL ×4 (08:47→20:37)
[2023-04-03] MEDS: LIDOCAINE 5% PATCH 1 PATCH TRANSDERM (08:49)
[2023-04-03] MEDS: ROSUVASTATIN 5 MG TABLET PO (08:50)
[2023-04-03] MEDS: lisinopriL 20 MG TABLET PO (08:51)
[2023-04-03] MEDS: HYDROcodone/acetaminophen (*CRX) 5-325 MG TABLET 1 TAB PO ×2 (08:51→20:40)
[2023-04-03] MEDS: cilostazoL 100 MG TABLET PO ×2 (08:51→16:25)
[2023-04-03] MEDS: MEGESTROL ACETATE (*CHEMO) 40 MG TABLET PO ×3 (08:53→16:25)
[2023-04-03] MEDS: METOPROLOL TARTRATE 50 MG TAB 100 MG PO ×2 (08:53→20:38)
[2023-04-03] MEDS: HEPARIN SODIUM 5,000 UNITS/ML VIAL 5000 UNITS SUB-Q ×2 (08:53→20:38)
[2023-04-03] MEDS: ASPIRIN 81 MG CHEWABLE TABLET PO (09:21)
--- NOTE | 2023-04-03 15:37 | PM.IMHP ---
H&P: HPI History of Present Illness Date/Time: 04/03/23 15:37 Chief Complaint: weakness, fall, ? Cellulitis Narrative: This is a 77 year old female with a past medical history of HTD, CAD, Osteoporisis, Left Bundle Branch Block, Chronic Pain- knee patient was in the correction . Patient was in [facility] last month and her has taken her home. He brought her into the emergency room as he is not able to take care of her and would like for her to be placed in a correction. Patient is alert and is complaining of leg pain that she has chronically. Patient has a Lidocaine patch on her leg and she has some redness and pain that bothers her and she is being treated for cellulitis. Patient continue to be alert and oriented and she does not move much she is a max to lift. At this time we will continue to treat cellulitis and plan on correction discharge once she is accepted. Review of Systems Review of Systems: foot and leg pain , weakness All systems reviewed & are unremarkable except as noted in HPI and below PMFSH Past Medical History Medical History CHARLI (acute kidney injury) Essential hypertension Left bundle branch block Mild aortic stenosis Mixed hyperlipidemia Osteoarthritis Osteoporosis Peripheral vascular disease Systolic dysfunction Tobacco abuse Transient ischemic attack Vitamin B12 deficiency Vitamin D deficiency Surgical History Surgical History History of appendectomy History of arthroscopy of left knee History of tonsillectomy History of tubal ligation History of vascular surgery (2007) Right common iliac artery stent. Family History Family History Sibling Depression Patient's sister is Father Family history of emphysema Mother Family history of coronary artery disease Other Hypertension Social History Social History Social History: Surrogate decision maker: Martin Thompson, spouse. Code status: Full code. Smoking packs per day: 1 Smoking cigarettes per day: 20.0 Years smoked: 64 Smoking pack-years: 64.00 Smoking status: Former smoker Tobacco type: cigarettes Second hand tobacco smoke exposure: Yes Smoking end date: 12/23/22 Additional smoking assessment comments: 5 per day currently x 50 years Alcohol intake: never Substance use: never Substance use type: does not use Lack of Transportation: No Lack of Food: Never True Current Housing: I Have Housing Concerned About Future Housing: No Difficulty Paying Gas/Electric Bills: No Difficulty Paying for Meds: No Currently Unemployed: No Education: Bachelor's Degree Difficulty w/ Childcare or Family Care: No Living arrangements: with family Additional living arrangements comments: The patient lives with her in [place]. 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: No Meds Home Medications and Allergies Home Medications Medication Instructions Recorded Confirmed Type omega-3 fatty acids 1,000 mg 1,000 mg PO HS 08/20/20 04/02/23 History capsule (Fish Oil Concentrate) acetaminophen 325 mg tablet (Mapap 650 mg PO Q6H PRN Mild Pain (1-3) 12/08/21 04/02/23 Rx (acetaminophen)) Or Fever #20 tabs metoprolol tartrate 50 mg tablet 100 mg PO Q12HR #360 tabs 07/17/22 04/02/23 Rx rosuvastatin 5 mg tablet 5 mg PO DAILY #90 tabs 07/17/22 04/02/23 Rx ergocalciferol (vitamin D2) 1,250 1,250 mcg PO .EVERY OTHER WEEK #14 07/22/22 04/02/23 Rx mcg (50,000 unit) capsule caps tramadol 50 mg tablet 50 mg PO Q6H PRN pain #60 tabs 12/15/22 04/02/23 Rx amlodipine 2.5 mg tablet 2.5 mg PO QHS 12/22/22 04/02/23 History megestrol 40 mg tablet 40 mg PO TID
[2023-04-03] MEDS: amLODIPine BESYLATE 2.5 MG TABLET PO (20:37)
[2023-04-03] MEDS: OMEGA 3 POLYUNSAT FATTY ACIDS 1 GM CAP PO (20:37)
[2023-04-03] MEDS: DONEPEZIL HCL 5 MG TABLET BY MOUTH (20:38)
[2023-04-04] VITALS: BP 127/62; PULSE 109; RESP 16; TEMP 36.2; O2SAT 94
[2023-04-04 05:40] LABS: Hematocrit 37.1 % (35.0-42.0); Hemoglobin 11.9 g/dL (11.7-13.8); Mean Corpuscular HGB Conc 32.1 g/dL (32.0-36.0); Mean Corpuscular Hemoglobin 28.3 pg (27.0-31.0); Mean Corpuscular Volume 88.3 fL (78.0-102.0); Mean Platelet Volume 10.1 fl (9.2-11.8); Platelet Count Result 346 K/mm3 (150-420); Red Cell Distribution Width 17.7 % (11.6-14.4); White Blood Count 14.2 K/mm3 (4.8-10.8)
[2023-04-04 05:48] LABS: Anion Gap 10 mmol/L (8-16); Blood Urea Nitrogen 22 mg/dL (7-18); Calcium 8.8 mg/dL (8.5-10.1); Carbon Dioxide 26 mmol/L (21-32); Chloride 105 mmol/L (98-108); Estimated CRCL calculation 33 ml/min; Estimated Glomerular Filt Rate > 60; Glucose 97 mg/dL (70-99); Osmolality Calculated 295 mOsm/kg (285-295); Potassium 3.4 mmol/L (3.5-5.1); Sodium 141 mmol/L (136-145)
[2023-04-04 08:00] VITALS: BP 124/71; PULSE 89; RESP 14; TEMP 36.6; O2SAT 97
[2023-04-04] MEDS: LIDOCAINE 5% PATCH 1 PATCH TRANSDERM (08:43)
[2023-04-04 08:44] VITALS: PULSE 79
[2023-04-04] MEDS: METOPROLOL TARTRATE 50 MG TAB 100 MG PO ×2 (08:44→20:30)
[2023-04-04] MEDS: ROSUVASTATIN 5 MG TABLET PO (08:44)
[2023-04-04] MEDS: DICLOFENAC SODIUM 1% 100 GM GEL (*BKC) 1 APPLIC TOPICAL ×4 (08:44→20:32)
[2023-04-04] MEDS: MEGESTROL ACETATE (*CHEMO) 40 MG TABLET PO ×3 (08:44→16:38)
[2023-04-04] MEDS: cilostazoL 100 MG TABLET PO ×2 (08:45→16:38)
[2023-04-04] MEDS: lisinopriL 20 MG TABLET PO (08:45)
[2023-04-04] MEDS: HYDROcodone/acetaminophen (*CRX) 5-325 MG TABLET 1 TAB PO ×2 (08:45→20:32)
[2023-04-04] MEDS: ASPIRIN 81 MG CHEWABLE TABLET PO (08:46)
[2023-04-04] MEDS: HEPARIN SODIUM 5,000 UNITS/ML VIAL 5000 UNITS SUB-Q ×2 (08:46→20:30)
[2023-04-04] MEDS: traMADol HCL (*CRX) 50 MG TABLET PO (12:08)
[2023-04-04 16:00] VITALS: BP 116/70; PULSE 76; RESP 14; TEMP 36.4; O2SAT 95
[2023-04-04 20:00] VITALS: PULSE 76; RESP 14; O2SAT 95
[2023-04-04] MEDS: OMEGA 3 POLYUNSAT FATTY ACIDS 1 GM CAP PO (20:30)
[2023-04-04] MEDS: amLODIPine BESYLATE 2.5 MG TABLET PO (20:31)
[2023-04-04] MEDS: DONEPEZIL HCL 5 MG TABLET BY MOUTH (20:31)
[2023-04-05] VITALS: BP 132/66; PULSE 111; RESP 16; TEMP 36.6; O2SAT 94
--- NOTE | 2023-04-05 07:21 | PM.DS ---
DS: Admitting Diagnosis Discharge Date 04/05/2023 Admitting Diagnosis WEakness, dehydration, dementia, placment DS: Discharge Diagnosis Discharge Diagnosis (1) Weakness: Code(s): R53.1 - Weakness Status: Acute (2) Cellulitis: Qualifiers: Laterality: left Site of cellulitis: extremity Site of cellulitis of extremity: lower extremity Qualified Code(s): L03.116 - Cellulitis of left lower limb Code(s): L03.90 - Cellulitis, unspecified Status: Acute Assessment and Plan: IV antibiotic ruled out at this time limb pain noted no redness noted at this time. WBC within normal limits afebrile, no warmth sensitive to touch (3) Dementia: Code(s): F03.90 - Unspecified dementia, unspecified severity, without behavioral disturbance, psychotic disturbance, mood disturbance, and anxiety Status: Acute Assessment and Plan: continue home medication fall precaution (4) CHARLI (acute kidney injury): Code(s): N17.9 - Acute kidney failure, unspecified Status: Acute Assessment and Plan: resolved avoid nephrotoxic medication (5) Mixed hyperlipidemia: Code(s): E78.2 - Mixed hyperlipidemia Status: Acute Assessment and Plan: continue home medication (6) Essential hypertension: Code(s): I10 - Essential (primary) hypertension Status: Acute Assessment and Plan: monitor blood pressure stable continue home medication DS: Summary Hospital Course Reason for hospitalization: Weakness, Cellulitis ruled out, Leg pain, dementia, dehydration Hospital Course: This is a 77-year-old female brought in by her as he has not been able to get it to the restroom and is not able to currently continue to take care of her. Patient was previously in a [facility] which she has taken her from to take the [facility] and to go home to try to care for. According to the he has spoken with his and they were willing to take her back patient had a small reddened area on her left foot that was slightly red and is painful and patient is able to move her foot she has chronic pain to that leg where she has a lidocaine patch on her knee patient refuses to walk with template the distance that the time from side to side patient has. Patient was placed on some antibiotics prophylactically just in case she has remained afebrile and she is eating and drinking without any difficulty patient has been accepted at the [facility] where she will go to enable follow her closely and complete her medications patient should follow-up primary care provider in 5-7 days Time Spent with Patient Time attestation: Total time spent providing and/or coordinating discharge services: Exam Const: General: no acute distress, alert, ill appearing chronically, well nourished and thin Nutritional Appearance: thin Orientation/consciousness: patient oriented x3 Limitations: no limitations HENMT: Head: normal to inspection Ears: external ears normal Face/Nose/Sinus: Normal external nose present and normal facial exam Face and sinus: normal facial exam Mouth: Yes moist mucous membranes Eyes: Conjunctivae: conjunctivae normal Pupils: Equal, round and reactive pupils present EOM: EOMs intact bilaterally Neck: Neck: normal visual inspection Resp: Effort & Inspection: normal respiratory effort Auscultation: rhonchi lower bilaterally Cardio: Rate: tachycardic Rhythm: regular rhythm GI: Auscultation: normal bowel sounds Back/Spine/Pelvis: Cervical Spine: cervical ROM normal Thoracic/Lumbar Spine: thoraco-lumbar ROM normal Skin: General skin exam: normal color Rashes: no rashes Neuro: General: patient oriented x3, moves all extremities, no focal motor deficits and CN's II-XI intact bilaterally Cranial nerves: Yes Equal, round and reactive pupils present Speech: normal speech Extrem: General: normal exam except as noted and no clubbing, cy
[2023-04-05 08:00] VITALS: BP 146/70; PULSE 110; RESP 18; TEMP 36.6; O2SAT 98
[2023-04-05] MEDS: LIDOCAINE 5% PATCH 1 PATCH TRANSDERM (09:41)
[2023-04-05] MEDS: HEPARIN SODIUM 5,000 UNITS/ML VIAL 5000 UNITS SUB-Q (09:42)
--- NOTE | 2023-04-05 11:17 | PC.NURSE ---
Pt discharged to [facility] snf. Pt transfered from bed to with 2 people and the [facility] lift. Pt yelling while being transferred. [facility] facility Van picked pt up for transfer. VSS. Pt oriented to self and aware of transfer to SNF. Discharge packet sent with route driver salesperson. This RN called report to GILBERT at [facility].
--- NOTE | 2023-04-06 14:11 | PC.NURSE ---
[facility] nurse states they received and understood the discharge instructions.
== END 2023-04-05 11:05 | DRG 603 ==
LOC: CHSED 18:34 → CHS2ND 20:01
PROVIDERS: Nurse Practitioner Adult Health; Nurse Practitioner Family; Admitting Provider Internal Medicine; Emergency Provider Emergency Medicine; PCP Family Medicine; Visit Provider Internal Medicine
DX: L03.116 Cellulitis of left lower limb (principal); I10 Essential (primary) hypertension; I73.9 Peripheral vascular disease, unspecified; I35.0 Nonrheumatic aortic (valve) stenosis; E78.2 Mixed hyperlipidemia; E53.8 Deficiency of other specified B group vitamins; M81.0 Age-related osteoporosis without current pathological fracture; M25.562 Pain in left knee; G89.29 Other chronic pain; Z95.820 Peripheral vascular angioplasty status with implants and grafts
CPT/HCPCS: 36415; 71045; 73560; 73610; 80048; 80053; 81003; 83605; 83735; 84550; 85025; 85027; 86140; 87040; 96365; 96366; 96372; 97162; 99285; A9270; G0378; J0696; J1644